=== PATIENT | female | born 1975 | race Caucasian/White ===

== ENCOUNTER 2017-11-18 18:12 | Emergency (ER) | payer MEDICAID ==
[~2017-11-18] VITALS: Ht 170.2 cm; Wt 77.3 kg
[~2017-11-18 18:12] MED LIST: BUSP10TA11 PO; DOCU100C40 PO; GABA600T2 PO; MAGN400O6 PO; NORCO10T PO; QUET-1 PO
[2017-11-18 19:02] LABS: CLARITY,URINE SLIGHTLY CLOUDY (Clear); COLOR,URINE YELLOW (Yellow); GLUCOSE, URINE NEGATIVE (Neg); KETONES,URINE NEGATIVE (Neg); LEUKOCYTE ESTERASE ,URINE SMALL (Neg); NITRITES, URINE NEGATIVE (Neg); OCCULT BLOOD,URINE MODERATE (Neg); PROTEIN,URINE 30 mg/dl (Neg); UROBILINOGEN,URINE 0.2 E.U/dL (0.2-1.0)
[2017-11-18 19:04] LABS: UA COLLECTION TYPE CLN CATCH MIDSTREAM
[2017-11-18 19:14] LABS: URINE AMPHETAMINE SCREEN NEGATIVE (Neg); URINE BARBITUATE SCREEN NEGATIVE (Neg); URINE BENZODIAZEPINES SCREEN NEGATIVE (Neg); URINE CANNABINOID SCREEN POSITIVE (Neg); URINE COCAINE SCREEN NEGATIVE (Neg); URINE METHADONE SCREEN NEGATIVE (Neg); URINE OPIATE SCREEN NEGATIVE (Neg); URINE PHENCYCLIDINE SCREEN NEGATIVE (Neg)
[2017-11-18] MEDS ORDERED: PHEN-716 PO (19:19)
[2017-11-18] MEDS ORDERED: CIPR-259 PO (19:19)
[2017-11-18 19:22] LABS: BACTERIA,URINE 3+ /HPF (Neg); MUCUS STRANDS NONE SEEN /LPF (Neg); SQUAMOUS EPITHELIAL CELL,UR MODERATE /LPF (FEW); WBC CLUMPS,URINE MODERATE /HPF (NEGATIVE); WBC,URINE 20-30 /HPF (0-4)
[2017-11-18 19:38] VITALS: BP 128/81
== END 2017-11-18 19:43 | disposition home or self-care (01) ==
LOC: ER 18:12
DX: R51 Headache (principal); F91.9 Conduct disorder, unspecified; G89.29 Other chronic pain; F41.9 Anxiety disorder, unspecified; F32.9 Major depressive disorder, single episode, unspecified; F12.90 Cannabis use, unspecified, uncomplicated; F15.90 Other stimulant use, unspecified, uncomplicated; F14.90 Cocaine use, unspecified, uncomplicated; Z90.49 Acquired absence of other specified parts of digestive tract; Z91.14 Patient's other noncompliance with medication regimen; Z98.890 Other specified postprocedural states; Z88.0 Allergy status to penicillin; Z88.6 Allergy status to analgesic agent; Z88.5 Allergy status to narcotic agent
CPT/HCPCS: 80305; 81001; 87077; 87088; 87186; 99284

== ENCOUNTER 2018-09-09 11:30 | Day surgery (SDC) | payer MEDICAID ==
[~2018-09-09 11:30] MED LIST changes: +GABA600T13 PO; -GABA600T2 PO; +PHEN-716 PO
[2018-09-09] MEDS ORDERED: LIDOcaine/PRILOcaine 5gm cream TP ONE (12:09)
--- NOTE | 2018-09-09 13:00 | NUR ---
Patient ambulated independently from [facility] and was admitted to outpatient wound care for physician visit with Marshall Bansal MD. Dressing removed, wound cleansed and Emla cream applied per order. New patient assessment completed with review of patient's medical history and current medications. 1230 - Dr. Bansal at bedside accompanied by RN. Wound assessed, time out performed by MD/RN. Wound debrided as detailed in the physician progress/procedure note. Plan of care discussed with patient. Dressings placed per MD orders. Patient instructed on the signs and symptoms of infection and to call the Wound Center if any occur or to go to the ED if we are closed: Increased pain in wound Increase in drainage from the wound Redness in the skin surrounding the wound Bleeding from the wound Temperature of 101 or greater Patient instructed that the weight of their body puts a large amount of pressure on their wounds. This pressure keeps the new tissue from growing and inhibits new blood vessels from forming. Explained that, if they continue to bear weight on a body part that has a wound, the time it takes to heal the wound increases, the wound may get worse or the wound may not heal at all. Patient verbalized understanding of all discharge instructions and plan of care and ambulated independently out to [facility] in stable condition with no sign or symptom of distress at time of discharge.
[2018-09-09] MEDS ORDERED: TIZA4TAB11 PO (14:28)
[2018-09-09] MEDS ORDERED: trintellix (14:28)
== END 2018-09-09 12:45 | disposition home or self-care (01) ==
LOC: WOUND CARE 11:30
PROVIDERS: ATTEND Surgery
DX: T81.89XD Other complications of procedures, not elsewhere classified, subsequent encounter (principal); L97.522 Non-pressure chronic ulcer of other part of left foot with fat layer exposed; G89.29 Other chronic pain; F41.9 Anxiety disorder, unspecified; F12.90 Cannabis use, unspecified, uncomplicated; F14.90 Cocaine use, unspecified, uncomplicated; F32.9 Major depressive disorder, single episode, unspecified; F15.90 Other stimulant use, unspecified, uncomplicated; Z98.890 Other specified postprocedural states; Z90.49 Acquired absence of other specified parts of digestive tract; Y83.8 Other surgical procedures as the cause of abnormal reaction of the patient, or of later complication, without mention of misadventure at the time of the procedure
CPT/HCPCS: 73600; 73620; 87070; 87075; 87077; 87102; 87176; 87186; A6021; A6206; A6212

== ENCOUNTER 2018-09-16 10:02 | Day surgery (SDC) | payer MEDICAID ==
[~2018-09-16 10:02] MED LIST changes: -BUSP10TA11 PO; -DOCU100C40 PO; -MAGN400O6 PO; -NORCO10T PO; -PHEN-716 PO; +TIZA4TAB11 PO; +trintellix
[2018-09-16 11:16] LABS: BASOPHILS # (AUTO) 0.1 X10'3 (0-0.2); EOSINOPHILS # (AUTO) 0.2 X10'3 (0-0.9); EOSINOPHILS % (AUTO) 2.9 % (0-6); HEMATOCRIT 40.7 % (35.0-45.0); HEMOGLOBIN 14.2 g/dl (12.0-16.0); LYMPHOCYTES # (AUTO) 1.7 X10'3 (1.1-4.8); LYMPHOCYTES % (AUTO) 28.4 % (21-51); MEAN CORPUSCULAR HEMOGLOBIN 30.8 PG (27.0-31.0); MEAN CORPUSCULAR HGB CONC 34.8 g/dL (33.0-36.5); MEAN CORPUSCULAR VOLUME 88.4 FL (78-98); MEAN PLATELET VOLUME 8.2 FL (7.4-10.4); MONOCYTES # (AUTO) 0.6 X10'3 (0-0.9); MONOCYTES % (AUTO) 9.3 % (2-12); NEUTROPHILS # (AUTO) 3.6 X10'3 (1.8-7.7); NEUTROPHILS % (AUTO) 58.4 % (42-75); PLATELET COUNT 321 X10'3 (140-440); RED BLOOD COUNT 4.61 X10'6 (4.20-5.60); RED CELL DISTRIBUTION WIDTH 13.6 % (11.5-14.5); WHITE BLOOD COUNT 6.1 X10'3 (4.5-11.0)
[2018-09-16 11:27] LABS: ALANINE AMINOTRANSFERASE 19 U/L (12-78); ALBUMIN 3.5 G/DL (3.4-5.0); ALBUMIN/GLOBULIN RATIO 0.7 (1.1-1.5); ALKALINE PHOSPHATASE 95 IU/L (46-116); ANION GAP 9 (8-16); ASPARTATE AMINO TRANSFERASE 14 U/L (10-37); BILIRUBIN,TOTAL 0.2 MG/DL (0.1-1.0); BLOOD UREA NITROGEN 10 MG/DL (7-18); BUN/CREATININE RATIO 14.7 (6.6-38.0); CALCIUM 8.6 MG/DL (8.5-10.1); CHLORIDE 102 MMOL/L (99-107); CREATININE 0.68 MG/DL (0.40-0.90); GLUCOSE 79 MG/DL (70-104); HEMOGLOBIN A1C 5.4 % (4.5-6.2); POTASSIUM 3.8 MMOL/L (3.5-5.1); PREALBUMIN 17.3 MG/DL (19-36); SODIUM 138 MMOL/L (135-145); TOTAL CARBON DIOXIDE 26.6 MMOL/L (24-32); TOTAL PROTEIN 8.2 G/DL (6.4-8.2); eGFR > 90 ML/MIN
[2018-09-16] MEDS ORDERED: LIDOcaine/PRILOcaine 5gm cream TP ONE (11:40)
--- NOTE | 2018-09-16 13:30 | NUR ---
Patient ambulated independently from [facility] and was admitted to outpatient wound care for physician visit with Marshall Bansal MD. Dressing removed, wound cleansed. Patient assessed for changes in conditions, medications and medical history. Ordered tests completed. 1310 - Dr. Bansal at bedside accompanied by RN. Wound assessed, time out performed by MD/RN. Wound debrided as detailed in the physician progress/procedure note. Plan of care discussed with patient. Dressings placed per MD orders. Patient instructed on the signs and symptoms of infection and to call the Wound Center if any occur or to go to the ED if we are closed: Increased pain in wound Increase in drainage from the wound Redness in the skin surrounding the wound Bleeding from the wound Temperature of 101 or greater Patient instructed that the weight of their body puts a large amount of pressure on their wounds. This pressure keeps the new tissue from growing and inhibits new blood vessels from forming. Explained that, if they continue to bear weight on a body part that has a wound, the time it takes to heal the wound increases, the wound may get worse or the wound may not heal at all. Pt instructed to elevate legs at least 30 minutes 3 times a day or 10 minutes every 4 hours, also instructed check their toes. If they become purplish or blue, cool to the touch, numb or tingly, use a pair of scissors and carefully cut off the dressing. Call the Wound Center for an appointment to have the dressing reapplied. Pt instructed that decreased swelling in the legs and the potential for drainage from the wound may require them to have to schedule visits twice weekly, progressing to weekly as the swelling decreases in their legs. Pt instructed that if dressings become loose, wrinkled or falls down and if they are experiencing any pain or discomfort under their dressing cut the dressing off and call the Wound Center to have it reapplied. Pt instructed that the wrap needs to be kept dry. They may bath at a sink or there are devices designed to keep dressings dry these are available at most drug stores. If they choose to shower with a plastic bag taped over the wrap. Be sure to having another person available for assistance or placing towels on the floor of the shower or tub to eliminate the slick surface can reduce the risk of falls. Patient verbalized understanding of all discharge instructions and plan of care and ambulated independently out to [facility] in stable condition with no sign or symptom of distress at time of discharge.
[2018-09-16] MEDS ORDERED: BUPR1FIL3 SL (15:36)
[2018-09-16] MEDS ORDERED: PROP10TA10 PO (15:36)
== END 2018-09-16 11:30 | disposition home or self-care (01) ==
LOC: WOUND CARE 10:02
PROVIDERS: ATTEND Surgery
DX: T81.89XD Other complications of procedures, not elsewhere classified, subsequent encounter (principal); L97.522 Non-pressure chronic ulcer of other part of left foot with fat layer exposed; G89.29 Other chronic pain; F41.9 Anxiety disorder, unspecified; F12.90 Cannabis use, unspecified, uncomplicated; F14.90 Cocaine use, unspecified, uncomplicated; F32.9 Major depressive disorder, single episode, unspecified; F15.90 Other stimulant use, unspecified, uncomplicated; Z98.890 Other specified postprocedural states; Z90.49 Acquired absence of other specified parts of digestive tract; Z86.19 Personal history of other infectious and parasitic diseases; Z79.899 Other long term (current) drug therapy; Y83.8 Other surgical procedures as the cause of abnormal reaction of the patient, or of later complication, without mention of misadventure at the time of the procedure
CPT/HCPCS: 36415; 80053; 83036; 84134; 85025; 85651; 93970; A6021; A6206; A6441

== ENCOUNTER 2018-09-26 11:31 | Day surgery (SDC) | payer MEDICAID ==
[~2018-09-26 11:31] MED LIST changes: +BUPR1FIL3 SL; +PROP10TA10 PO
--- NOTE | 2018-09-26 13:00 | NUR ---
Patient ambulated independently from [facility] and was admitted to outpatient wound care for physician visit with Marshall Bansal MD. Dressing removed, wound cleansed and lidocaine applied per order. Patient assessed for changes in conditions, medications and medical history. 1213 - Dr. Bansal at bedside accompanied by RN. Wound assessed, time out performed by MD/RN. Wound debrided as detailed in the physician progress/procedure note. Plan of care discussed with patient. Dressings placed per MD orders. Patient instructed on the signs and symptoms of infection and to call the Wound Center if any occur or to go to the ED if we are closed: Increased pain in wound Increase in drainage from the wound Redness in the skin surrounding the wound Bleeding from the wound Temperature of 101 or greater Patient instructed that the weight of their body puts a large amount of pressure on their wounds. This pressure keeps the new tissue from growing and inhibits new blood vessels from forming. Explained that, if they continue to bear weight on a body part that has a wound, the time it takes to heal the wound increases, the wound may get worse or the wound may not heal at all. Patient verbalized understanding of all discharge instructions and plan of care and ambulated independently out to [facility] in stable condition with no sign or symptom of distress at time of discharge.
[2018-09-26] MEDS ORDERED: LEVO750T21 PO (14:53)
== END 2018-09-26 12:33 | disposition home or self-care (01) ==
LOC: WOUND CARE 11:31
PROVIDERS: ATTEND Surgery
DX: T81.89XD Other complications of procedures, not elsewhere classified, subsequent encounter (principal); L97.522 Non-pressure chronic ulcer of other part of left foot with fat layer exposed; L98.492 Non-pressure chronic ulcer of skin of other sites with fat layer exposed; G89.29 Other chronic pain; F41.9 Anxiety disorder, unspecified; F12.90 Cannabis use, unspecified, uncomplicated; F14.90 Cocaine use, unspecified, uncomplicated; F32.9 Major depressive disorder, single episode, unspecified; F15.90 Other stimulant use, unspecified, uncomplicated; Z98.890 Other specified postprocedural states; Z90.49 Acquired absence of other specified parts of digestive tract; Z86.19 Personal history of other infectious and parasitic diseases; Z79.899 Other long term (current) drug therapy; Y83.8 Other surgical procedures as the cause of abnormal reaction of the patient, or of later complication, without mention of misadventure at the time of the procedure
CPT/HCPCS: 97597; A6021; A6206; A6446

== ENCOUNTER 2018-09-30 11:35 | Day surgery (SDC) | payer MEDICAID ==
[~2018-09-30 11:35] MED LIST changes: +LEVO750T21 PO
[2018-09-30] MEDS ORDERED: LIDOcaine/PRILOcaine 5gm cream TP ONE (12:06)
--- NOTE | 2018-09-30 13:30 | NUR ---
Patient ambulated independently from [facility] and was admitted to outpatient wound care for physician visit with Marshall Bansal MD. Dressing removed, wound cleansed. Patient assessed for changes in conditions, medications and medical history. 1250 -Dr. Bansal at bedside accompanied by RN. Wound assessed, time out performed by MD/RN. Wound debrided as detailed in the physician progress/procedure note. Plan of care discussed with patient. Dressings placed per MD orders. Patient instructed on the signs and symptoms of infection and to call the Wound Center if any occur or to go to the ED if we are closed: Increased pain in wound Increase in drainage from the wound Redness in the skin surrounding the wound Bleeding from the wound Temperature of 101 or greater Patient instructed that the weight of their body puts a large amount of pressure on their wounds. This pressure keeps the new tissue from growing and inhibits new blood vessels from forming. Explained that, if they continue to bear weight on a body part that has a wound, the time it takes to heal the wound increases, the wound may get worse or the wound may not heal at all. Patient verbalized understanding of all discharge instructions and plan of care and ambulated independently out to [facility] in stable condition with no sign or symptom of distress at time of discharge. Refill on antibiotic called in to patient's pharmacy; pharmacy technician trainee reports that the antibiotic ordered last week was "never picked up".
== END 2018-09-30 13:44 | disposition home or self-care (01) ==
LOC: WOUND CARE 11:35
PROVIDERS: ATTEND Surgery
DX: T81.89XD Other complications of procedures, not elsewhere classified, subsequent encounter (principal); L97.522 Non-pressure chronic ulcer of other part of left foot with fat layer exposed; L98.492 Non-pressure chronic ulcer of skin of other sites with fat layer exposed; G89.29 Other chronic pain; F41.9 Anxiety disorder, unspecified; F12.90 Cannabis use, unspecified, uncomplicated; F14.90 Cocaine use, unspecified, uncomplicated; F32.9 Major depressive disorder, single episode, unspecified; F15.90 Other stimulant use, unspecified, uncomplicated; Z98.890 Other specified postprocedural states; Z90.49 Acquired absence of other specified parts of digestive tract; Z86.19 Personal history of other infectious and parasitic diseases; Z79.899 Other long term (current) drug therapy; Y83.8 Other surgical procedures as the cause of abnormal reaction of the patient, or of later complication, without mention of misadventure at the time of the procedure
CPT/HCPCS: 11042; 97607; A6222

== ENCOUNTER 2018-10-14 11:25 | Day surgery (SDC) | payer MEDICAID | END 2018-10-14 12:48 | disposition home or self-care (01) | LOC: WOUND CARE 11:25 | PROVIDERS: ATTEND Surgery | DX: T81.89XD Other complications of procedures, not elsewhere classified, subsequent encounter (principal); L97.525 Non-pressure chronic ulcer of other part of left foot with muscle involvement without evidence of necrosis; L98.492 Non-pressure chronic ulcer of skin of other sites with fat layer exposed; G89.29 Other chronic pain; F41.9 Anxiety disorder, unspecified; F12.90 Cannabis use, unspecified, uncomplicated; F14.90 Cocaine use, unspecified, uncomplicated; F32.9 Major depressive disorder, single episode, unspecified; F15.90 Other stimulant use, unspecified, uncomplicated; Z98.890 Other specified postprocedural states; Z90.49 Acquired absence of other specified parts of digestive tract; Z86.19 Personal history of other infectious and parasitic diseases; Z79.899 Other long term (current) drug therapy; Y83.8 Other surgical procedures as the cause of abnormal reaction of the patient, or of later complication, without mention of misadventure at the time of the procedure | CPT/HCPCS: 11043; A6021; A6196; A6206; A6446 ==

== ENCOUNTER 2018-11-11 11:47 | Day surgery (SDC) | payer MEDICAID ==
[2018-11-11] MEDS ORDERED: LIDOcaine/PRILOcaine 5gm cream TP ONE (12:05)
--- NOTE | 2018-11-11 15:05 | NUR ---
Patient ambulated independently from [facility] and was admitted to outpatient wound care for physician visit with Marshall Bansal MD. Dressing removed, wound cleansed and Emla cream applied per order. Patient assessed for changes in conditions, medications and medical history. Dr. Bansal at bedside accompanied by RN. Wound assessed, time out performed by MD/RN. Wound debrided as detailed in the physician progress/procedure note. Plan of care discussed with patient. Dressings placed per MD orders. Patient instructed on the signs and symptoms of infection and to call the Wound Center if any occur or to go to the ED if we are closed: Increased pain in wound Increase in drainage from the wound Redness in the skin surrounding the wound Bleeding from the wound Temperature of 101 or greater Patient instructed that the weight of their body puts a large amount of pressure on their wounds. This pressure keeps the new tissue from growing and inhibits new blood vessels from forming. Explained that, if they continue to bear weight on a body part that has a wound, the time it takes to heal the wound increases, the wound may get worse or the wound may not heal at all. Patient verbalized understanding of all discharge instructions and plan of care and ambulated independently out to [facility] in stable condition with no sign or symptom of distress at time of discharge. Addendum: 11/11/18 at 1506 by Es Wiseman RN Amended: Links added.
== END 2018-11-11 12:49 | disposition home or self-care (01) ==
LOC: WOUND CARE 11:47
PROVIDERS: ATTEND Surgery
DX: T81.89XD Other complications of procedures, not elsewhere classified, subsequent encounter (principal); L97.522 Non-pressure chronic ulcer of other part of left foot with fat layer exposed; L98.492 Non-pressure chronic ulcer of skin of other sites with fat layer exposed; G89.29 Other chronic pain; F41.9 Anxiety disorder, unspecified; F12.90 Cannabis use, unspecified, uncomplicated; F14.90 Cocaine use, unspecified, uncomplicated; F32.9 Major depressive disorder, single episode, unspecified; F15.90 Other stimulant use, unspecified, uncomplicated; Z98.890 Other specified postprocedural states; Z90.49 Acquired absence of other specified parts of digestive tract; Z86.19 Personal history of other infectious and parasitic diseases; Z79.899 Other long term (current) drug therapy; Y83.8 Other surgical procedures as the cause of abnormal reaction of the patient, or of later complication, without mention of misadventure at the time of the procedure
CPT/HCPCS: 11042; 97597; A6209; A4663; A6021; A6154

== ENCOUNTER 2018-11-18 11:50 | Day surgery (SDC) | payer MEDICAID ==
--- NOTE | 2018-11-18 12:52 | NUR ---
Patient ambulated independently from [facility] and was admitted to outpatient wound care for physician visit with Marshall Bansal MD. Dressing removed, wound cleansed and lidocaine applied per order. Patient assessed for changes in conditions, medications and medical history. Dr. Bansal at bedside accompanied by RN. Wound assessed, time out performed by MD/RN. Wound debrided as detailed in the physician progress/procedure note. Plan of care discussed with patient. applied an Apligraf to wound. Dressings placed per MD orders. Patient instructed on the signs and symptoms of infection and to call the Wound Center if any occur or to go to the ED if we are closed: Increased pain in wound Increase in drainage from the wound Redness in the skin surrounding the wound Bleeding from the wound Temperature of 101 or greater Patient instructed that the weight of their body puts a large amount of pressure on their wounds. This pressure keeps the new tissue from growing and inhibits new blood vessels from forming. Explained that, if they continue to bear weight on a body part that has a wound, the time it takes to heal the wound increases, the wound may get worse or the wound may not heal at all. Patient verbalized understanding of all discharge instructions and plan of care and ambulated independently out to [facility] in stable condition with no sign or symptom of distress at time of discharge. Addendum: 11/18/18 at 1255 by Es Wiseman RN Amended: Links added.
== END 2018-11-18 12:45 | disposition home or self-care (01) ==
LOC: WOUND CARE 11:50
PROVIDERS: ATTEND Surgery
DX: T81.89XD Other complications of procedures, not elsewhere classified, subsequent encounter (principal); L97.522 Non-pressure chronic ulcer of other part of left foot with fat layer exposed; L98.492 Non-pressure chronic ulcer of skin of other sites with fat layer exposed; G89.29 Other chronic pain; F41.9 Anxiety disorder, unspecified; F12.90 Cannabis use, unspecified, uncomplicated; F14.90 Cocaine use, unspecified, uncomplicated; F32.9 Major depressive disorder, single episode, unspecified; F15.90 Other stimulant use, unspecified, uncomplicated; Z98.890 Other specified postprocedural states; Z90.49 Acquired absence of other specified parts of digestive tract; Z86.19 Personal history of other infectious and parasitic diseases; Z79.899 Other long term (current) drug therapy; Y83.8 Other surgical procedures as the cause of abnormal reaction of the patient, or of later complication, without mention of misadventure at the time of the procedure
CPT/HCPCS: 15275; A6209; A6222; Q4101; A4663; A6250; A6446

== ENCOUNTER 2018-11-26 11:40 | Day surgery (SDC) | payer MEDICAID ==
[2018-11-26] MEDS ORDERED: LIDOcaine 2% 5ml jelly ONE (11:53)
[2018-11-26] MEDS ORDERED: nystatin/triamcinolone cream 15gm TP ONE (12:20)
[2018-11-26] MEDS ORDERED: MYCOL15CR TOP (12:49)
--- NOTE | 2018-11-26 12:50 | NUR ---
Patient ambulated independently from [facility] and was admitted to outpatient wound care for physician visit with Marshall Bansal MD. Dressing removed, wound cleansed and lidocaine applied per order. Patient assessed for changes in conditions, medications and medical history. 1205 - Dr. Bansal at bedside accompanied by RN. Wound assessed, time out performed by MD/RN. Wound debrided as detailed in the physician progress/procedure note. Plan of care discussed with patient. Dressings placed per MD orders. Patient instructed on the signs and symptoms of infection and to call the Wound Center if any occur or to go to the ED if we are closed: Increased pain in wound Increase in drainage from the wound Redness in the skin surrounding the wound Bleeding from the wound Temperature of 101 or greater Patient instructed that the weight of their body puts a large amount of pressure on their wounds. This pressure keeps the new tissue from growing and inhibits new blood vessels from forming. Explained that, if they continue to bear weight on a body part that has a wound, the time it takes to heal the wound increases, the wound may get worse or the wound may not heal at all. Patient verbalized understanding of all discharge instructions and plan of care and ambulated independently out to [facility] in stable condition with no sign or symptom of distress at time of discharge.
== END 2018-11-26 12:35 | disposition home or self-care (01) ==
LOC: WOUND CARE 11:40
PROVIDERS: ATTEND Surgery
DX: T81.89XD Other complications of procedures, not elsewhere classified, subsequent encounter (principal); L97.522 Non-pressure chronic ulcer of other part of left foot with fat layer exposed; L98.492 Non-pressure chronic ulcer of skin of other sites with fat layer exposed; G89.29 Other chronic pain; F41.9 Anxiety disorder, unspecified; F12.90 Cannabis use, unspecified, uncomplicated; F14.90 Cocaine use, unspecified, uncomplicated; F32.9 Major depressive disorder, single episode, unspecified; F15.90 Other stimulant use, unspecified, uncomplicated; Z98.890 Other specified postprocedural states; Z90.49 Acquired absence of other specified parts of digestive tract; Z86.19 Personal history of other infectious and parasitic diseases; Z79.899 Other long term (current) drug therapy; Y83.8 Other surgical procedures as the cause of abnormal reaction of the patient, or of later complication, without mention of misadventure at the time of the procedure
CPT/HCPCS: 97597; A6209; J7999; A4663; A6154; A6446

== ENCOUNTER 2018-12-05 12:04 | Outpatient (CLI) | payer MEDICAID ==
[~2018-12-05 12:04] MED LIST changes: +MYCOL15CR TOP
== END 2018-12-05 13:33 | disposition home or self-care (01) ==
LOC: WOUND CARE 12:04
PROVIDERS: ATTEND Surgery
DX: T81.89XD Other complications of procedures, not elsewhere classified, subsequent encounter (principal); L97.522 Non-pressure chronic ulcer of other part of left foot with fat layer exposed; L98.492 Non-pressure chronic ulcer of skin of other sites with fat layer exposed; G89.29 Other chronic pain; F41.9 Anxiety disorder, unspecified; F12.90 Cannabis use, unspecified, uncomplicated; F14.90 Cocaine use, unspecified, uncomplicated; F32.9 Major depressive disorder, single episode, unspecified; F15.90 Other stimulant use, unspecified, uncomplicated; F17.200 Nicotine dependence, unspecified, uncomplicated; Z98.890 Other specified postprocedural states; Z90.49 Acquired absence of other specified parts of digestive tract; Z86.19 Personal history of other infectious and parasitic diseases; Z79.899 Other long term (current) drug therapy; Y83.8 Other surgical procedures as the cause of abnormal reaction of the patient, or of later complication, without mention of misadventure at the time of the procedure
CPT/HCPCS: A4663; G0463

== ENCOUNTER 2018-12-09 11:40 | Day surgery (SDC) | payer MEDICAID ==
[2018-12-09] MEDS ORDERED: LIDOcaine 2% 5ml jelly ONE (12:10)
== END 2018-12-09 13:53 | disposition home or self-care (01) ==
LOC: WOUND CARE 11:40
PROVIDERS: ATTEND Surgery
DX: T81.89XD Other complications of procedures, not elsewhere classified, subsequent encounter (principal); L97.522 Non-pressure chronic ulcer of other part of left foot with fat layer exposed; L98.492 Non-pressure chronic ulcer of skin of other sites with fat layer exposed; G89.29 Other chronic pain; F41.9 Anxiety disorder, unspecified; F12.90 Cannabis use, unspecified, uncomplicated; F14.90 Cocaine use, unspecified, uncomplicated; F32.9 Major depressive disorder, single episode, unspecified; F15.90 Other stimulant use, unspecified, uncomplicated; F17.200 Nicotine dependence, unspecified, uncomplicated; Z98.890 Other specified postprocedural states; Z90.49 Acquired absence of other specified parts of digestive tract; Z86.19 Personal history of other infectious and parasitic diseases; Z79.899 Other long term (current) drug therapy; Y83.8 Other surgical procedures as the cause of abnormal reaction of the patient, or of later complication, without mention of misadventure at the time of the procedure
CPT/HCPCS: 87070; 87075; 87077; 87102; 87176; 87186; 97597; A4663; A6021; A6154; A6212

== ENCOUNTER 2018-12-19 11:05 | Day surgery (SDC) | payer MEDICAID ==
[2018-12-19] MEDS ORDERED: LIDOcaine 2% 5ml jelly ONE (12:39)
== END 2018-12-19 14:05 | disposition home or self-care (01) ==
LOC: WOUND CARE 11:05
PROVIDERS: ATTEND Surgery
DX: T81.89XD Other complications of procedures, not elsewhere classified, subsequent encounter (principal); L97.522 Non-pressure chronic ulcer of other part of left foot with fat layer exposed; L98.492 Non-pressure chronic ulcer of skin of other sites with fat layer exposed; L89.899 Pressure ulcer of other site, unspecified stage; G89.29 Other chronic pain; F41.9 Anxiety disorder, unspecified; F12.90 Cannabis use, unspecified, uncomplicated; F14.90 Cocaine use, unspecified, uncomplicated; F32.9 Major depressive disorder, single episode, unspecified; F15.90 Other stimulant use, unspecified, uncomplicated; F17.200 Nicotine dependence, unspecified, uncomplicated; Z98.890 Other specified postprocedural states; Z90.49 Acquired absence of other specified parts of digestive tract; Z86.19 Personal history of other infectious and parasitic diseases; Z79.899 Other long term (current) drug therapy; Y83.8 Other surgical procedures as the cause of abnormal reaction of the patient, or of later complication, without mention of misadventure at the time of the procedure
CPT/HCPCS: 97597; A4663; A6021; A6154; A6446

== ENCOUNTER 2018-12-23 12:00 | Day surgery (SDC) | payer MEDICAID ==
[2018-12-23] MEDS ORDERED: LIDOcaine 2% 5ml jelly ONE (12:25)
== END 2018-12-23 13:20 | disposition home or self-care (01) ==
LOC: WOUND CARE 12:00
PROVIDERS: ATTEND Surgery
DX: T81.89XD Other complications of procedures, not elsewhere classified, subsequent encounter (principal); L97.522 Non-pressure chronic ulcer of other part of left foot with fat layer exposed; L98.492 Non-pressure chronic ulcer of skin of other sites with fat layer exposed; L89.892 Pressure ulcer of other site, stage 2; G89.29 Other chronic pain; F41.9 Anxiety disorder, unspecified; F12.90 Cannabis use, unspecified, uncomplicated; F14.90 Cocaine use, unspecified, uncomplicated; F32.9 Major depressive disorder, single episode, unspecified; F15.90 Other stimulant use, unspecified, uncomplicated; F17.200 Nicotine dependence, unspecified, uncomplicated; Z98.890 Other specified postprocedural states; Z90.49 Acquired absence of other specified parts of digestive tract; Z86.19 Personal history of other infectious and parasitic diseases; Z79.899 Other long term (current) drug therapy; Y83.8 Other surgical procedures as the cause of abnormal reaction of the patient, or of later complication, without mention of misadventure at the time of the procedure
CPT/HCPCS: 97597; A6222; A6021; A6446

== ENCOUNTER 2019-01-06 11:45 | Day surgery (SDC) | payer MEDICAID ==
[2019-01-06] MEDS ORDERED: LIDOcaine 2% 5ml jelly ONE (12:07)
[2019-01-06] MEDS ORDERED: hydrocortisone 1% cream 28gm TP ONE (12:46)
== END 2019-01-06 13:05 | disposition home or self-care (01) ==
LOC: WOUND CARE 11:45
PROVIDERS: ATTEND Surgery
DX: T81.89XD Other complications of procedures, not elsewhere classified, subsequent encounter (principal); L97.522 Non-pressure chronic ulcer of other part of left foot with fat layer exposed; L98.492 Non-pressure chronic ulcer of skin of other sites with fat layer exposed; L89.892 Pressure ulcer of other site, stage 2; G89.29 Other chronic pain; F41.9 Anxiety disorder, unspecified; F12.90 Cannabis use, unspecified, uncomplicated; F14.90 Cocaine use, unspecified, uncomplicated; F32.9 Major depressive disorder, single episode, unspecified; F15.90 Other stimulant use, unspecified, uncomplicated; F17.200 Nicotine dependence, unspecified, uncomplicated; Z98.890 Other specified postprocedural states; Z90.49 Acquired absence of other specified parts of digestive tract; Z86.19 Personal history of other infectious and parasitic diseases; Z79.899 Other long term (current) drug therapy; Y83.8 Other surgical procedures as the cause of abnormal reaction of the patient, or of later complication, without mention of misadventure at the time of the procedure
CPT/HCPCS: 97597; A4663; A6021; A6154; A6212; A6446

== ENCOUNTER 2019-01-09 19:29 | Emergency (ER) | payer MEDICAID ==
[~2019-01-09] VITALS: Ht 170.2 cm; Wt 90.0 kg
[2019-01-09 19:34] VITALS: BP 154/86
[2019-01-09] MEDS ORDERED: LORazepam 2 mg/ml vial IV ONE (21:30)
[2019-01-09] MEDS ORDERED: normal saline 1000ML IV soln IVB ONE (21:30)
[2019-01-09] MEDS ORDERED: ondansetron/PF 4mg/2ml inj IV ONE (21:30)
[2019-01-09] MEDS ORDERED: iohexol 300mg/ml 100ml inj. ONE (21:31)
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
[2019-01-09 21:55] LABS: BASOPHILS # (AUTO) 0.1 X10'3 (0-0.2); BASOPHILS % (AUTO) 0.5 % (0-1); EOSINOPHILS # (AUTO) 0.3 X10'3 (0-0.9); EOSINOPHILS % (AUTO) 2.9 % (0-6); HEMATOCRIT 33.8 % (35.0-45.0); HEMOGLOBIN 11.7 g/dl (12.0-16.0); LYMPHOCYTES # (AUTO) 3.4 X10'3 (1.1-4.8); LYMPHOCYTES % (AUTO) 29.8 % (21-51); MEAN CORPUSCULAR HEMOGLOBIN 29.8 PG (27.0-31.0); MEAN CORPUSCULAR HGB CONC 34.5 g/dL (33.0-36.5); MEAN CORPUSCULAR VOLUME 86.4 FL (78-98); MEAN PLATELET VOLUME 8.5 FL (7.4-10.4); MONOCYTES # (AUTO) 0.9 X10'3 (0-0.9); MONOCYTES % (AUTO) 7.9 % (2-12); NEUTROPHILS # (AUTO) 6.7 X10'3 (1.8-7.7); NEUTROPHILS % (AUTO) 58.9 % (42-75); PLATELET COUNT 278 X10'3 (140-440); RED BLOOD COUNT 3.91 X10'6 (4.20-5.60); RED CELL DISTRIBUTION WIDTH 13.9 % (11.5-14.5); WHITE BLOOD COUNT 11.3 X10'3 (4.5-11.0)
[2019-01-09 22:04] LABS: ALANINE AMINOTRANSFERASE 14 U/L (12-78); ALBUMIN 3.3 G/DL (3.4-5.0); ALBUMIN/GLOBULIN RATIO 0.7 (1.1-1.5); ALKALINE PHOSPHATASE 94 IU/L (46-116); ANION GAP 13 (8-16); ASPARTATE AMINO TRANSFERASE 6 U/L (10-37); BILIRUBIN,TOTAL 0.1 MG/DL (0.1-1.0); BLOOD UREA NITROGEN 7 MG/DL (7-18); BUN/CREATININE RATIO 10.4 (6.6-38.0); CHLORIDE 106 MMOL/L (99-107); CREATININE 0.67 MG/DL (0.40-0.90); ETHANOL < 0.010 GM/DL (0.0-0.010); GLUCOSE 99 MG/DL (70-104); POTASSIUM 3.5 MMOL/L (3.5-5.1); SODIUM 140 MMOL/L (135-145); TOTAL CARBON DIOXIDE 20.8 MMOL/L (24-32); TOTAL PROTEIN 8.2 G/DL (6.4-8.2); eGFR > 90 ML/MIN
[2019-01-09] MEDS: morphine 4 MG/ML inj SYRINge IV PRN ×2 (22:20→22:47)
[2019-01-09 22:35] LABS: CREATINE KINASE 94 U/L (26-192)
--- NOTE | 2019-01-09 22:49 | NUR ---
pt having a lot of pain in that calf area. She said it feels like something is hitting her with a bowling ball. She is up to the BR, provided her a ua cup. She walks all hunched over, limps. There is odor coming from that wound. I will unwrap it and evaluate it. I will give her the morphine when she returns. She said only dilaudid works. Infomed the patient that we do not have dilaudid in the ER.
--- NOTE | 2019-01-09 23:27 | NUR ---
PT HAS 4 WOUNDS TO HER LEFT FOOT 3 ON TOP OF HER FOOT AND 1 TO ACHILLES TENDON. ALL ARE DRAINING AN ODOROUS GAMBLE DRAINAGE. INSTRUCTED THE PATIENT TO WASH HER WOUNDS DAILY. TO USE COCONUT OIL TO HER ENTIRE BODY TO KEEP SKIN SUPPLE SECONDARY TO HER MCNEILL. ENCOURAGED MULTIVITAMIN VIT C AND VIT E FOR HER SKIN. SHE HAS NOT BEEN TAKING CARE OF HER WOUNDS. THE BOTTOM OF HER FOOT HAD BLACK DIRT ON IT. SHE HAD DRY SKIN TO THE REST OF HER FOOT THAT WAS SCRUBBED OFF WITH THE NS AND 4X4.
--- NOTE | 2019-01-09 23:33 | NUR ---
PHOTOS TAKEN/ON CHART/FRESH BANDAGE TO FOOT. I USED NON ADHERENT BANDAGE X 2 AND WRAPPED WITH KERLIX
[2019-01-09 23:36] LABS: URINE HCG NEGATIVE (NEG)
[2019-01-09 23:37] LABS: COLOR,URINE YELLOW (Yellow); GLUCOSE, URINE NEGATIVE (Neg); KETONES,URINE NEGATIVE (Neg); LEUKOCYTE ESTERASE ,URINE TRACE (Neg); NITRITES, URINE NEGATIVE (Neg); OCCULT BLOOD,URINE NEGATIVE (Neg); PH,URINE 6.5 (4.8-8.0); PROTEIN,URINE NEGATIVE (Neg); UROBILINOGEN,URINE 0.2 E.U/dL (0.2-1.0)
[2019-01-09 23:39] LABS: CLARITY,URINE SLIGHTLY CLOUDY (Clear); UA COLLECTION TYPE CLN CATCH MIDSTREAM
[2019-01-09 23:44] LABS: AMORPHOUS URATES 1+; BACTERIA,URINE 1+ /HPF (Neg); RBC,URINE NONE SEEN /HPF (0-2); SQUAMOUS EPITHELIAL CELL,UR MODERATE /LPF (FEW); WBC,URINE 0-4 /HPF (0-4)
[2019-01-09 23:48] LABS: URINE AMPHETAMINE SCREEN NEGATIVE (Neg); URINE BARBITUATE SCREEN NEGATIVE (Neg); URINE BENZODIAZEPINES SCREEN NEGATIVE (Neg); URINE CANNABINOID SCREEN NEGATIVE (Neg); URINE COCAINE SCREEN NEGATIVE (Neg); URINE METHADONE SCREEN NEGATIVE (Neg); URINE OPIATE SCREEN POSITIVE (Neg); URINE PHENCYCLIDINE SCREEN NEGATIVE (Neg)
[2019-01-09] MEDS ORDERED: sulfamethoxazole/trimethoprim DS (800/160mg) tablet PO ONE (23:55)
[2019-01-09] MEDS ORDERED: SULF1TAB49 PO (23:56)
== END 2019-01-10 00:19 | disposition home or self-care (01) ==
LOC: ER 19:30
DX: L03.116 Cellulitis of left lower limb (principal); G89.29 Other chronic pain; F41.9 Anxiety disorder, unspecified; F32.9 Major depressive disorder, single episode, unspecified; F12.90 Cannabis use, unspecified, uncomplicated; F15.90 Other stimulant use, unspecified, uncomplicated; F14.90 Cocaine use, unspecified, uncomplicated; F10.99 Alcohol use, unspecified with unspecified alcohol-induced disorder; Z88.0 Allergy status to penicillin; Z88.1 Allergy status to other antibiotic agents; Z88.8 Allergy status to other drugs, medicaments and biological substances; Z79.899 Other long term (current) drug therapy; Z98.890 Other specified postprocedural states; Z86.718 Personal history of other venous thrombosis and embolism; Z86.14 Personal history of Methicillin resistant Staphylococcus aureus infection; Z86.19 Personal history of other infectious and parasitic diseases; Z86.69 Personal history of other diseases of the nervous system and sense organs; Z90.49 Acquired absence of other specified parts of digestive tract; Y90.9 Presence of alcohol in blood, level not specified
CPT/HCPCS: 36415; 73701; 80053; 80305; 80320; 81001; 81025; 82550; 84145; 85025; 87088; 93971; 96374; 96375; 99284; J2060; J2270; J2405; J7030; Q9967

== ENCOUNTER 2019-01-13 11:50 | Outpatient (CLI) | payer MEDICAID ==
[~2019-01-13 11:50] MED LIST changes: +SULF1TAB49 PO
[2019-01-13] MEDS ORDERED: hydrocortisone 1% cream 28gm TP ONE (12:31)
== END 2019-01-13 12:53 | disposition home or self-care (01) ==
LOC: WOUND CARE 11:50
PROVIDERS: ATTEND Surgery
DX: T81.89XD Other complications of procedures, not elsewhere classified, subsequent encounter (principal); L97.522 Non-pressure chronic ulcer of other part of left foot with fat layer exposed; L89.892 Pressure ulcer of other site, stage 2; G89.29 Other chronic pain; F41.9 Anxiety disorder, unspecified; F12.90 Cannabis use, unspecified, uncomplicated; F14.90 Cocaine use, unspecified, uncomplicated; F32.9 Major depressive disorder, single episode, unspecified; F15.90 Other stimulant use, unspecified, uncomplicated; F17.200 Nicotine dependence, unspecified, uncomplicated; Z98.890 Other specified postprocedural states; Z90.49 Acquired absence of other specified parts of digestive tract; Z86.19 Personal history of other infectious and parasitic diseases; Z79.899 Other long term (current) drug therapy; Z86.718 Personal history of other venous thrombosis and embolism; Y83.8 Other surgical procedures as the cause of abnormal reaction of the patient, or of later complication, without mention of misadventure at the time of the procedure
CPT/HCPCS: A4663; A6021; A6154; G0463

== ENCOUNTER 2019-01-21 10:45 | Day surgery (SDC) | payer MEDICAID ==
[~2019-01-21 10:45] MED LIST changes: -SULF1TAB49 PO
[2019-01-21] MEDS ORDERED: LIDOcaine 2% 5ml jelly ONE (11:06)
[2019-01-21] MEDS ORDERED: nystatin/triamcinolone cream 15gm TP ONE (12:26)
== END 2019-01-21 12:48 | disposition home or self-care (01) ==
LOC: WOUND CARE 10:45
PROVIDERS: ATTEND Surgery
DX: T81.89XD Other complications of procedures, not elsewhere classified, subsequent encounter (principal); L97.522 Non-pressure chronic ulcer of other part of left foot with fat layer exposed; L89.892 Pressure ulcer of other site, stage 2; G89.29 Other chronic pain; F41.9 Anxiety disorder, unspecified; F12.90 Cannabis use, unspecified, uncomplicated; F14.90 Cocaine use, unspecified, uncomplicated; F32.9 Major depressive disorder, single episode, unspecified; F15.90 Other stimulant use, unspecified, uncomplicated; F17.200 Nicotine dependence, unspecified, uncomplicated; Z98.890 Other specified postprocedural states; Z90.49 Acquired absence of other specified parts of digestive tract; Z86.19 Personal history of other infectious and parasitic diseases; Z79.899 Other long term (current) drug therapy; Z86.718 Personal history of other venous thrombosis and embolism; Y83.8 Other surgical procedures as the cause of abnormal reaction of the patient, or of later complication, without mention of misadventure at the time of the procedure
CPT/HCPCS: 97597; J7999; A4663; A6021; A6154; A6212

== ENCOUNTER 2019-01-27 12:00 | Outpatient (CLI) | payer MEDICAID | END 2019-01-27 13:00 | disposition home or self-care (01) | LOC: WOUND CARE 12:00 | PROVIDERS: ATTEND Surgery | DX: T81.89XD Other complications of procedures, not elsewhere classified, subsequent encounter (principal); E11.621 Type 2 diabetes mellitus with foot ulcer; L89.893 Pressure ulcer of other site, stage 3; L97.524 Non-pressure chronic ulcer of other part of left foot with necrosis of bone; I12.9 Hypertensive chronic kidney disease with stage 1 through stage 4 chronic kidney disease, or unspecified chronic kidney disease; E11.22 Type 2 diabetes mellitus with diabetic chronic kidney disease; N18.3 Chronic kidney disease, stage 3 (moderate); E11.40 Type 2 diabetes mellitus with diabetic neuropathy, unspecified; G60.9 Hereditary and idiopathic neuropathy, unspecified; I25.10 Atherosclerotic heart disease of native coronary artery without angina pectoris; L84 Corns and callosities; M10.9 Gout, unspecified; I25.2 Old myocardial infarction; E78.5 Hyperlipidemia, unspecified; Z79.01 Long term (current) use of anticoagulants; Z79.02 Long term (current) use of antithrombotics/antiplatelets; Z79.82 Long term (current) use of aspirin; Z79.899 Other long term (current) drug therapy; Z95.5 Presence of coronary angioplasty implant and graft; Y83.8 Other surgical procedures as the cause of abnormal reaction of the patient, or of later complication, without mention of misadventure at the time of the procedure | CPT/HCPCS: A4663; A6021; A6154; A6212; G0463 ==

== ENCOUNTER 2019-02-06 11:40 | Day surgery (SDC) | payer MEDICAID ==
[2019-02-06] MEDS ORDERED: LIDOcaine 2% 5ml jelly ONE (12:04)
[2019-02-06] MEDS ORDERED: nystatin/triamcinolone cream 15gm TP ONE (12:23)
== END 2019-02-06 12:55 | disposition home or self-care (01) ==
LOC: WOUND CARE 11:40
PROVIDERS: ATTEND Surgery
DX: T81.89XD Other complications of procedures, not elsewhere classified, subsequent encounter (principal); E11.621 Type 2 diabetes mellitus with foot ulcer; L89.892 Pressure ulcer of other site, stage 2; L97.524 Non-pressure chronic ulcer of other part of left foot with necrosis of bone; I12.9 Hypertensive chronic kidney disease with stage 1 through stage 4 chronic kidney disease, or unspecified chronic kidney disease; E11.22 Type 2 diabetes mellitus with diabetic chronic kidney disease; N18.3 Chronic kidney disease, stage 3 (moderate); E11.40 Type 2 diabetes mellitus with diabetic neuropathy, unspecified; G60.9 Hereditary and idiopathic neuropathy, unspecified; I25.10 Atherosclerotic heart disease of native coronary artery without angina pectoris; L84 Corns and callosities; M10.9 Gout, unspecified; I25.2 Old myocardial infarction; E78.5 Hyperlipidemia, unspecified; Z79.01 Long term (current) use of anticoagulants; Z79.02 Long term (current) use of antithrombotics/antiplatelets; Z79.82 Long term (current) use of aspirin; Z79.899 Other long term (current) drug therapy; Z95.5 Presence of coronary angioplasty implant and graft; Y83.8 Other surgical procedures as the cause of abnormal reaction of the patient, or of later complication, without mention of misadventure at the time of the procedure
CPT/HCPCS: 97597; J7999; A4663; A6021; A6154; A6212

== ENCOUNTER 2019-02-10 11:45 | Day surgery (SDC) | payer MEDICAID ==
[2019-02-10] MEDS ORDERED: LIDOcaine 2% 5ml jelly ONE ×2 (12:13→12:25)
[2019-02-10] MEDS ORDERED: nystatin/triamcinolone cream 15gm TP ONE (12:45)
== END 2019-02-10 13:01 | disposition home or self-care (01) ==
LOC: WOUND CARE 11:45
PROVIDERS: ATTEND Surgery
DX: T81.89XD Other complications of procedures, not elsewhere classified, subsequent encounter (principal); E11.621 Type 2 diabetes mellitus with foot ulcer; L89.892 Pressure ulcer of other site, stage 2; L97.522 Non-pressure chronic ulcer of other part of left foot with fat layer exposed; S81.812A Laceration without foreign body, left lower leg, initial encounter; I12.9 Hypertensive chronic kidney disease with stage 1 through stage 4 chronic kidney disease, or unspecified chronic kidney disease; E11.22 Type 2 diabetes mellitus with diabetic chronic kidney disease; N18.3 Chronic kidney disease, stage 3 (moderate); E11.40 Type 2 diabetes mellitus with diabetic neuropathy, unspecified; G60.9 Hereditary and idiopathic neuropathy, unspecified; I25.10 Atherosclerotic heart disease of native coronary artery without angina pectoris; L84 Corns and callosities; M10.9 Gout, unspecified; I25.2 Old myocardial infarction; E78.5 Hyperlipidemia, unspecified; Z79.01 Long term (current) use of anticoagulants; Z79.02 Long term (current) use of antithrombotics/antiplatelets; Z79.82 Long term (current) use of aspirin; Z79.899 Other long term (current) drug therapy; Z95.5 Presence of coronary angioplasty implant and graft; X58.XXXA Exposure to other specified factors, initial encounter; Y93.89 Activity, other specified; Y92.89 Other specified places as the place of occurrence of the external cause; Y99.8 Other external cause status; Y83.8 Other surgical procedures as the cause of abnormal reaction of the patient, or of later complication, without mention of misadventure at the time of the procedure
CPT/HCPCS: 97597; 97602; A6209; J7999; A4663; A6021; A6154

== ENCOUNTER 2019-02-17 12:00 | Day surgery (SDC) | payer MEDICAID ==
[2019-02-17] MEDS ORDERED: LIDOcaine 2% 5ml jelly ONE (12:07)
[2019-02-17] MEDS ORDERED: nystatin/triamcinolone cream 15gm TP ONE (12:40)
== END 2019-02-17 12:51 | disposition home or self-care (01) ==
LOC: WOUND CARE 12:00
PROVIDERS: ATTEND Surgery
DX: T81.89XD Other complications of procedures, not elsewhere classified, subsequent encounter (principal); E11.621 Type 2 diabetes mellitus with foot ulcer; L89.892 Pressure ulcer of other site, stage 2; L97.522 Non-pressure chronic ulcer of other part of left foot with fat layer exposed; S81.812D Laceration without foreign body, left lower leg, subsequent encounter; I12.9 Hypertensive chronic kidney disease with stage 1 through stage 4 chronic kidney disease, or unspecified chronic kidney disease; E11.22 Type 2 diabetes mellitus with diabetic chronic kidney disease; N18.3 Chronic kidney disease, stage 3 (moderate); E11.40 Type 2 diabetes mellitus with diabetic neuropathy, unspecified; G60.9 Hereditary and idiopathic neuropathy, unspecified; I25.10 Atherosclerotic heart disease of native coronary artery without angina pectoris; L84 Corns and callosities; M10.9 Gout, unspecified; I25.2 Old myocardial infarction; E78.5 Hyperlipidemia, unspecified; Z79.01 Long term (current) use of anticoagulants; Z79.02 Long term (current) use of antithrombotics/antiplatelets; Z79.82 Long term (current) use of aspirin; Z79.899 Other long term (current) drug therapy; Z95.5 Presence of coronary angioplasty implant and graft; X58.XXXD Exposure to other specified factors, subsequent encounter; Y83.8 Other surgical procedures as the cause of abnormal reaction of the patient, or of later complication, without mention of misadventure at the time of the procedure
CPT/HCPCS: 97597; A6223; J7999; A4663; A6021

== ENCOUNTER 2019-03-03 11:30 | Day surgery (SDC) | payer MEDICAID ==
[2019-03-03] MEDS ORDERED: LIDOcaine 2% 5ml jelly ONE ×2 (11:53→12:39)
[2019-03-03] MEDS ORDERED: nystatin/triamcinolone cream 15gm TP ONE (13:03)
[2019-03-03] MEDS ORDERED: gadobutrol 10mmol/10ml inj. IV ONE ×2 (14:38)
== END 2019-03-03 14:00 | disposition home or self-care (01) ==
LOC: WOUND CARE 11:30
PROVIDERS: ATTEND Surgery
DX: T81.89XD Other complications of procedures, not elsewhere classified, subsequent encounter (principal); E11.621 Type 2 diabetes mellitus with foot ulcer; L89.892 Pressure ulcer of other site, stage 2; L97.522 Non-pressure chronic ulcer of other part of left foot with fat layer exposed; S81.812D Laceration without foreign body, left lower leg, subsequent encounter; I12.9 Hypertensive chronic kidney disease with stage 1 through stage 4 chronic kidney disease, or unspecified chronic kidney disease; E11.22 Type 2 diabetes mellitus with diabetic chronic kidney disease; N18.3 Chronic kidney disease, stage 3 (moderate); E11.40 Type 2 diabetes mellitus with diabetic neuropathy, unspecified; G60.9 Hereditary and idiopathic neuropathy, unspecified; I25.10 Atherosclerotic heart disease of native coronary artery without angina pectoris; L84 Corns and callosities; M10.9 Gout, unspecified; I25.2 Old myocardial infarction; E78.5 Hyperlipidemia, unspecified; Z79.01 Long term (current) use of anticoagulants; Z79.02 Long term (current) use of antithrombotics/antiplatelets; Z79.82 Long term (current) use of aspirin; Z79.899 Other long term (current) drug therapy; Z95.5 Presence of coronary angioplasty implant and graft; X58.XXXD Exposure to other specified factors, subsequent encounter; Y83.8 Other surgical procedures as the cause of abnormal reaction of the patient, or of later complication, without mention of misadventure at the time of the procedure
CPT/HCPCS: 73723; 97597; A9585; J7999; A4663; A6021; A6154

== ENCOUNTER 2019-03-24 11:00 | Day surgery (SDC) | payer MEDICAID ==
[2019-03-24] MEDS ORDERED: LIDOcaine 2% 5ml jelly ONE (11:37)
[2019-03-24] MEDS ORDERED: nystatin/triamcinolone cream 15gm TP ONE ×2 (14:49→15:36)
== END 2019-03-24 13:15 | disposition home or self-care (01) ==
LOC: WOUND CARE 11:00
PROVIDERS: ATTEND Surgery
DX: T81.89XD Other complications of procedures, not elsewhere classified, subsequent encounter (principal); E11.621 Type 2 diabetes mellitus with foot ulcer; L97.522 Non-pressure chronic ulcer of other part of left foot with fat layer exposed; S81.812D Laceration without foreign body, left lower leg, subsequent encounter; I12.9 Hypertensive chronic kidney disease with stage 1 through stage 4 chronic kidney disease, or unspecified chronic kidney disease; E11.22 Type 2 diabetes mellitus with diabetic chronic kidney disease; N18.3 Chronic kidney disease, stage 3 (moderate); E11.40 Type 2 diabetes mellitus with diabetic neuropathy, unspecified; G60.9 Hereditary and idiopathic neuropathy, unspecified; I25.10 Atherosclerotic heart disease of native coronary artery without angina pectoris; L84 Corns and callosities; M10.9 Gout, unspecified; I25.2 Old myocardial infarction; E78.5 Hyperlipidemia, unspecified; Z79.01 Long term (current) use of anticoagulants; Z79.02 Long term (current) use of antithrombotics/antiplatelets; Z79.82 Long term (current) use of aspirin; Z79.899 Other long term (current) drug therapy; Z95.5 Presence of coronary angioplasty implant and graft; X58.XXXD Exposure to other specified factors, subsequent encounter; Y83.8 Other surgical procedures as the cause of abnormal reaction of the patient, or of later complication, without mention of misadventure at the time of the procedure
CPT/HCPCS: 97597; J7999; A4663; A6021; A6154; A6446

== ENCOUNTER 2019-04-03 11:46 | Day surgery (SDC) | payer MEDICAID ==
[2019-04-03] MEDS ORDERED: LIDOcaine 2% 5ml jelly ONE (12:08)
== END 2019-04-03 13:04 | disposition home or self-care (01) ==
LOC: WOUND CARE 11:46
PROVIDERS: ATTEND Surgery
DX: T81.89XD Other complications of procedures, not elsewhere classified, subsequent encounter (principal); E11.621 Type 2 diabetes mellitus with foot ulcer; L97.522 Non-pressure chronic ulcer of other part of left foot with fat layer exposed; S81.812D Laceration without foreign body, left lower leg, subsequent encounter; S90.812A Abrasion, left foot, initial encounter; I12.9 Hypertensive chronic kidney disease with stage 1 through stage 4 chronic kidney disease, or unspecified chronic kidney disease; E11.22 Type 2 diabetes mellitus with diabetic chronic kidney disease; N18.3 Chronic kidney disease, stage 3 (moderate); E11.40 Type 2 diabetes mellitus with diabetic neuropathy, unspecified; G60.9 Hereditary and idiopathic neuropathy, unspecified; I25.10 Atherosclerotic heart disease of native coronary artery without angina pectoris; L84 Corns and callosities; M10.9 Gout, unspecified; I25.2 Old myocardial infarction; E78.5 Hyperlipidemia, unspecified; Z79.01 Long term (current) use of anticoagulants; Z79.02 Long term (current) use of antithrombotics/antiplatelets; Z79.82 Long term (current) use of aspirin; Z79.899 Other long term (current) drug therapy; Z95.5 Presence of coronary angioplasty implant and graft; X58.XXXD Exposure to other specified factors, subsequent encounter; X58.XXXA Exposure to other specified factors, initial encounter; Y93.89 Activity, other specified; Y92.89 Other specified places as the place of occurrence of the external cause; Y99.8 Other external cause status; Y83.8 Other surgical procedures as the cause of abnormal reaction of the patient, or of later complication, without mention of misadventure at the time of the procedure
CPT/HCPCS: 97597; A4663; A6021; A6154; A6441

== ENCOUNTER 2019-04-07 11:45 | Outpatient (CLI) | payer MEDICAID ==
[2019-04-07] MEDS ORDERED: LIDOcaine 2% 5ml jelly ONE ×2 (12:08)
== END 2019-04-07 13:25 | disposition home or self-care (01) ==
LOC: WOUND CARE 11:45
PROVIDERS: ATTEND Surgery
DX: T81.89XD Other complications of procedures, not elsewhere classified, subsequent encounter (principal); E11.621 Type 2 diabetes mellitus with foot ulcer; L97.522 Non-pressure chronic ulcer of other part of left foot with fat layer exposed; S81.812D Laceration without foreign body, left lower leg, subsequent encounter; S90.812D Abrasion, left foot, subsequent encounter; I12.9 Hypertensive chronic kidney disease with stage 1 through stage 4 chronic kidney disease, or unspecified chronic kidney disease; E11.22 Type 2 diabetes mellitus with diabetic chronic kidney disease; N18.3 Chronic kidney disease, stage 3 (moderate); E11.40 Type 2 diabetes mellitus with diabetic neuropathy, unspecified; G60.9 Hereditary and idiopathic neuropathy, unspecified; I25.10 Atherosclerotic heart disease of native coronary artery without angina pectoris; L84 Corns and callosities; M10.9 Gout, unspecified; I25.2 Old myocardial infarction; E78.5 Hyperlipidemia, unspecified; Z79.01 Long term (current) use of anticoagulants; Z79.02 Long term (current) use of antithrombotics/antiplatelets; Z79.899 Other long term (current) drug therapy; Z95.5 Presence of coronary angioplasty implant and graft; X58.XXXD Exposure to other specified factors, subsequent encounter; Y83.8 Other surgical procedures as the cause of abnormal reaction of the patient, or of later complication, without mention of misadventure at the time of the procedure
CPT/HCPCS: 29581; A4663; A6021; A6154; A6196; A6441

== ENCOUNTER 2019-04-14 11:40 | Outpatient (CLI) | payer MEDICAID ==
[2019-04-14] MEDS ORDERED: LIDOcaine 2% 5ml jelly ONE (12:44)
== END 2019-04-14 13:33 | disposition home or self-care (01) ==
LOC: WOUND CARE 11:40
PROVIDERS: ATTEND Surgery
DX: T81.89XD Other complications of procedures, not elsewhere classified, subsequent encounter (principal); E11.621 Type 2 diabetes mellitus with foot ulcer; L97.522 Non-pressure chronic ulcer of other part of left foot with fat layer exposed; S81.812D Laceration without foreign body, left lower leg, subsequent encounter; S90.812D Abrasion, left foot, subsequent encounter; I12.9 Hypertensive chronic kidney disease with stage 1 through stage 4 chronic kidney disease, or unspecified chronic kidney disease; E11.22 Type 2 diabetes mellitus with diabetic chronic kidney disease; N18.3 Chronic kidney disease, stage 3 (moderate); E11.40 Type 2 diabetes mellitus with diabetic neuropathy, unspecified; G60.9 Hereditary and idiopathic neuropathy, unspecified; I25.10 Atherosclerotic heart disease of native coronary artery without angina pectoris; L84 Corns and callosities; M10.9 Gout, unspecified; I25.2 Old myocardial infarction; E78.5 Hyperlipidemia, unspecified; Z79.01 Long term (current) use of anticoagulants; Z79.02 Long term (current) use of antithrombotics/antiplatelets; Z79.899 Other long term (current) drug therapy; Z95.5 Presence of coronary angioplasty implant and graft; X58.XXXD Exposure to other specified factors, subsequent encounter; Y83.8 Other surgical procedures as the cause of abnormal reaction of the patient, or of later complication, without mention of misadventure at the time of the procedure
CPT/HCPCS: 29581; A4663; A6021; A6154; A6441

== ENCOUNTER 2019-04-17 14:30 | Outpatient (CLI) | payer MEDICAID ==
[2019-04-17] MEDS ORDERED: nystatin/triamcinolone cream 15gm TP ONE (14:42)
[2019-04-17] MEDS ORDERED: LIDOcaine 2% 5ml jelly ONE (14:51)
== END 2019-04-17 14:55 | disposition home or self-care (01) ==
LOC: EDSTATUS 14:30 → WOUND CARE 14:30
PROVIDERS: ATTEND Surgery
DX: T81.89XD Other complications of procedures, not elsewhere classified, subsequent encounter (principal); E11.621 Type 2 diabetes mellitus with foot ulcer; L97.522 Non-pressure chronic ulcer of other part of left foot with fat layer exposed; S81.812D Laceration without foreign body, left lower leg, subsequent encounter; S90.812D Abrasion, left foot, subsequent encounter; I12.9 Hypertensive chronic kidney disease with stage 1 through stage 4 chronic kidney disease, or unspecified chronic kidney disease; E11.22 Type 2 diabetes mellitus with diabetic chronic kidney disease; N18.3 Chronic kidney disease, stage 3 (moderate); E11.40 Type 2 diabetes mellitus with diabetic neuropathy, unspecified; G60.9 Hereditary and idiopathic neuropathy, unspecified; I25.10 Atherosclerotic heart disease of native coronary artery without angina pectoris; L84 Corns and callosities; M10.9 Gout, unspecified; I25.2 Old myocardial infarction; E78.5 Hyperlipidemia, unspecified; Z79.01 Long term (current) use of anticoagulants; Z79.02 Long term (current) use of antithrombotics/antiplatelets; Z79.899 Other long term (current) drug therapy; Z95.5 Presence of coronary angioplasty implant and graft; X58.XXXD Exposure to other specified factors, subsequent encounter; Y83.8 Other surgical procedures as the cause of abnormal reaction of the patient, or of later complication, without mention of misadventure at the time of the procedure
CPT/HCPCS: 29581; J7999; A4663; A6021; A6154; A6441

== ENCOUNTER 2019-04-21 11:40 | Outpatient (CLI) | payer MEDICAID ==
[2019-04-21] MEDS ORDERED: LIDOcaine 2% 5ml jelly ONE ×2 (12:19)
[2019-04-21] MEDS ORDERED: nystatin/triamcinolone cream 15gm TP ONE (12:27)
[2019-04-21] MEDS ORDERED: gentamicin 0.1% topical ointment 15gm TP ONE (12:32)
== END 2019-04-21 12:55 | disposition home or self-care (01) ==
LOC: WOUND CARE 11:40 → EDSTATUS 12:00 → WOUND CARE 12:55
PROVIDERS: ATTEND Surgery
DX: T81.89XD Other complications of procedures, not elsewhere classified, subsequent encounter (principal); E11.621 Type 2 diabetes mellitus with foot ulcer; L97.522 Non-pressure chronic ulcer of other part of left foot with fat layer exposed; S81.812D Laceration without foreign body, left lower leg, subsequent encounter; S90.812D Abrasion, left foot, subsequent encounter; I12.9 Hypertensive chronic kidney disease with stage 1 through stage 4 chronic kidney disease, or unspecified chronic kidney disease; E11.22 Type 2 diabetes mellitus with diabetic chronic kidney disease; N18.3 Chronic kidney disease, stage 3 (moderate); E11.40 Type 2 diabetes mellitus with diabetic neuropathy, unspecified; G60.9 Hereditary and idiopathic neuropathy, unspecified; I25.10 Atherosclerotic heart disease of native coronary artery without angina pectoris; L84 Corns and callosities; M10.9 Gout, unspecified; I25.2 Old myocardial infarction; E78.5 Hyperlipidemia, unspecified; Z79.01 Long term (current) use of anticoagulants; Z79.02 Long term (current) use of antithrombotics/antiplatelets; Z79.899 Other long term (current) drug therapy; Z95.5 Presence of coronary angioplasty implant and graft; X58.XXXD Exposure to other specified factors, subsequent encounter; Y83.8 Other surgical procedures as the cause of abnormal reaction of the patient, or of later complication, without mention of misadventure at the time of the procedure
CPT/HCPCS: 29581; J7999; A4663; A6021; A6154; A6196

== ENCOUNTER 2019-04-24 12:15 | Outpatient (CLI) | payer MEDICAID ==
[2019-04-24] MEDS ORDERED: nystatin/triamcinolone cream 15gm TP ONE (12:23)
[2019-04-24] MEDS ORDERED: gentamicin 0.1% topical ointment 15gm TP ONE (12:23)
[2019-04-24] MEDS ORDERED: LIDOcaine 2% 5ml jelly ONE (12:34)
== END 2019-04-24 13:10 | disposition home or self-care (01) ==
LOC: WOUND CARE 12:15
PROVIDERS: ATTEND Nurse Practitioner Family
DX: T81.89XD Other complications of procedures, not elsewhere classified, subsequent encounter (principal); E11.621 Type 2 diabetes mellitus with foot ulcer; L97.522 Non-pressure chronic ulcer of other part of left foot with fat layer exposed; S81.812D Laceration without foreign body, left lower leg, subsequent encounter; S90.812D Abrasion, left foot, subsequent encounter; I12.9 Hypertensive chronic kidney disease with stage 1 through stage 4 chronic kidney disease, or unspecified chronic kidney disease; E11.22 Type 2 diabetes mellitus with diabetic chronic kidney disease; N18.3 Chronic kidney disease, stage 3 (moderate); E11.40 Type 2 diabetes mellitus with diabetic neuropathy, unspecified; G60.9 Hereditary and idiopathic neuropathy, unspecified; I25.10 Atherosclerotic heart disease of native coronary artery without angina pectoris; L84 Corns and callosities; M10.9 Gout, unspecified; I25.2 Old myocardial infarction; E78.5 Hyperlipidemia, unspecified; Z79.01 Long term (current) use of anticoagulants; Z79.02 Long term (current) use of antithrombotics/antiplatelets; Z79.899 Other long term (current) drug therapy; Z95.5 Presence of coronary angioplasty implant and graft; X58.XXXD Exposure to other specified factors, subsequent encounter; Y83.8 Other surgical procedures as the cause of abnormal reaction of the patient, or of later complication, without mention of misadventure at the time of the procedure
CPT/HCPCS: 29581; J7999; A4663; A6021; A6154; A6196; A6441

== ENCOUNTER 2019-04-29 11:05 | Outpatient (CLI) | payer MEDICAID ==
[2019-04-29] MEDS ORDERED: LIDOcaine 2% 5ml jelly ONE (12:10)
[2019-04-29] MEDS ORDERED: gentamicin 0.1% topical ointment 15gm TP ONE (13:04)
[2019-04-29] MEDS ORDERED: nystatin/triamcinolone cream 15gm TP ONE (13:04)
== END 2019-04-29 13:37 | disposition home or self-care (01) ==
LOC: WOUND CARE 11:05
PROVIDERS: ATTEND Nurse Practitioner Family
DX: T81.89XD Other complications of procedures, not elsewhere classified, subsequent encounter (principal); E11.621 Type 2 diabetes mellitus with foot ulcer; L97.522 Non-pressure chronic ulcer of other part of left foot with fat layer exposed; S81.812D Laceration without foreign body, left lower leg, subsequent encounter; S90.812D Abrasion, left foot, subsequent encounter; I12.9 Hypertensive chronic kidney disease with stage 1 through stage 4 chronic kidney disease, or unspecified chronic kidney disease; E11.22 Type 2 diabetes mellitus with diabetic chronic kidney disease; N18.3 Chronic kidney disease, stage 3 (moderate); E11.40 Type 2 diabetes mellitus with diabetic neuropathy, unspecified; G60.9 Hereditary and idiopathic neuropathy, unspecified; I25.10 Atherosclerotic heart disease of native coronary artery without angina pectoris; L84 Corns and callosities; M10.9 Gout, unspecified; I25.2 Old myocardial infarction; E78.5 Hyperlipidemia, unspecified; F19.10 Other psychoactive substance abuse, uncomplicated; F17.200 Nicotine dependence, unspecified, uncomplicated; Z79.01 Long term (current) use of anticoagulants; Z79.02 Long term (current) use of antithrombotics/antiplatelets; Z79.899 Other long term (current) drug therapy; Z95.5 Presence of coronary angioplasty implant and graft; Z86.19 Personal history of other infectious and parasitic diseases; Z79.82 Long term (current) use of aspirin; X58.XXXD Exposure to other specified factors, subsequent encounter; Y83.8 Other surgical procedures as the cause of abnormal reaction of the patient, or of later complication, without mention of misadventure at the time of the procedure
CPT/HCPCS: 29581; J7999; A4663; A6021; A6154; A6196; A6212; A6441

== ENCOUNTER 2019-05-02 12:25 | Outpatient (CLI) | payer MEDICAID ==
[~2019-05-02 12:25] MED LIST changes: +gentamicin 0.1% topical ointment 15gm TP ONE; +nystatin/triamcinolone cream 15gm TP ONE
== END 2019-05-02 12:59 | disposition home or self-care (01) ==
LOC: WOUND CARE 12:25
PROVIDERS: ATTEND Surgery
DX: T81.89XD Other complications of procedures, not elsewhere classified, subsequent encounter (principal); E11.621 Type 2 diabetes mellitus with foot ulcer; L97.522 Non-pressure chronic ulcer of other part of left foot with fat layer exposed; S81.812D Laceration without foreign body, left lower leg, subsequent encounter; S90.812D Abrasion, left foot, subsequent encounter; I12.9 Hypertensive chronic kidney disease with stage 1 through stage 4 chronic kidney disease, or unspecified chronic kidney disease; E11.22 Type 2 diabetes mellitus with diabetic chronic kidney disease; N18.3 Chronic kidney disease, stage 3 (moderate); E11.40 Type 2 diabetes mellitus with diabetic neuropathy, unspecified; G60.9 Hereditary and idiopathic neuropathy, unspecified; I25.10 Atherosclerotic heart disease of native coronary artery without angina pectoris; L84 Corns and callosities; M10.9 Gout, unspecified; I25.2 Old myocardial infarction; E78.5 Hyperlipidemia, unspecified; F19.10 Other psychoactive substance abuse, uncomplicated; F17.200 Nicotine dependence, unspecified, uncomplicated; Z79.01 Long term (current) use of anticoagulants; Z79.02 Long term (current) use of antithrombotics/antiplatelets; Z79.899 Other long term (current) drug therapy; Z95.5 Presence of coronary angioplasty implant and graft; Z86.19 Personal history of other infectious and parasitic diseases; Z79.82 Long term (current) use of aspirin; X58.XXXD Exposure to other specified factors, subsequent encounter; Y83.8 Other surgical procedures as the cause of abnormal reaction of the patient, or of later complication, without mention of misadventure at the time of the procedure
CPT/HCPCS: 29581; J7999; A4663; A6021; A6154; A6196; A6441

== ENCOUNTER 2019-05-06 11:15 | Outpatient (CLI) | payer MEDICAID ==
[~2019-05-06 11:15] MED LIST changes: -gentamicin 0.1% topical ointment 15gm TP ONE; -nystatin/triamcinolone cream 15gm TP ONE
[2019-05-06] MEDS ORDERED: gentamicin 0.1% topical ointment 15gm TP ONE (11:42)
[2019-05-06] MEDS ORDERED: nystatin/triamcinolone cream 15gm TP ONE (11:43)
== END 2019-05-06 12:22 | disposition home or self-care (01) ==
LOC: WOUND CARE 11:15
PROVIDERS: ATTEND Surgery
DX: T81.89XD Other complications of procedures, not elsewhere classified, subsequent encounter (principal); E11.621 Type 2 diabetes mellitus with foot ulcer; L97.522 Non-pressure chronic ulcer of other part of left foot with fat layer exposed; S81.812D Laceration without foreign body, left lower leg, subsequent encounter; S90.812D Abrasion, left foot, subsequent encounter; I12.9 Hypertensive chronic kidney disease with stage 1 through stage 4 chronic kidney disease, or unspecified chronic kidney disease; E11.22 Type 2 diabetes mellitus with diabetic chronic kidney disease; N18.3 Chronic kidney disease, stage 3 (moderate); E11.40 Type 2 diabetes mellitus with diabetic neuropathy, unspecified; G60.9 Hereditary and idiopathic neuropathy, unspecified; I25.10 Atherosclerotic heart disease of native coronary artery without angina pectoris; L84 Corns and callosities; M10.9 Gout, unspecified; I25.2 Old myocardial infarction; E78.5 Hyperlipidemia, unspecified; F19.10 Other psychoactive substance abuse, uncomplicated; F17.200 Nicotine dependence, unspecified, uncomplicated; Z79.01 Long term (current) use of anticoagulants; Z79.02 Long term (current) use of antithrombotics/antiplatelets; Z79.899 Other long term (current) drug therapy; Z95.5 Presence of coronary angioplasty implant and graft; Z86.19 Personal history of other infectious and parasitic diseases; Z79.82 Long term (current) use of aspirin; X58.XXXD Exposure to other specified factors, subsequent encounter; Y83.8 Other surgical procedures as the cause of abnormal reaction of the patient, or of later complication, without mention of misadventure at the time of the procedure
CPT/HCPCS: 29581; J7999; A4663; A6021; A6154; A6196; A6441

== ENCOUNTER 2019-05-19 12:00 | Day surgery (SDC) | payer MEDICAID ==
[2019-05-19] MEDS ORDERED: LIDOcaine 2% 5ml jelly ONE (12:31)
[2019-05-19] MEDS ORDERED: gentamicin 0.1% topical ointment 15gm TP ONE (12:46)
[2019-05-19] MEDS ORDERED: nystatin/triamcinolone cream 15gm TP ONE (12:47)
== END 2019-05-19 13:15 | disposition home or self-care (01) ==
LOC: WOUND CARE 12:00
PROVIDERS: ATTEND Surgery
DX: T81.89XD Other complications of procedures, not elsewhere classified, subsequent encounter (principal); E11.621 Type 2 diabetes mellitus with foot ulcer; L97.522 Non-pressure chronic ulcer of other part of left foot with fat layer exposed; S81.812D Laceration without foreign body, left lower leg, subsequent encounter; S90.812D Abrasion, left foot, subsequent encounter; I12.9 Hypertensive chronic kidney disease with stage 1 through stage 4 chronic kidney disease, or unspecified chronic kidney disease; E11.22 Type 2 diabetes mellitus with diabetic chronic kidney disease; N18.3 Chronic kidney disease, stage 3 (moderate); E11.40 Type 2 diabetes mellitus with diabetic neuropathy, unspecified; G60.9 Hereditary and idiopathic neuropathy, unspecified; I25.10 Atherosclerotic heart disease of native coronary artery without angina pectoris; L84 Corns and callosities; M10.9 Gout, unspecified; I25.2 Old myocardial infarction; E78.5 Hyperlipidemia, unspecified; F19.10 Other psychoactive substance abuse, uncomplicated; F17.200 Nicotine dependence, unspecified, uncomplicated; Z79.01 Long term (current) use of anticoagulants; Z79.02 Long term (current) use of antithrombotics/antiplatelets; Z79.899 Other long term (current) drug therapy; Z95.5 Presence of coronary angioplasty implant and graft; Z86.19 Personal history of other infectious and parasitic diseases; Z79.82 Long term (current) use of aspirin; X58.XXXD Exposure to other specified factors, subsequent encounter; Y83.8 Other surgical procedures as the cause of abnormal reaction of the patient, or of later complication, without mention of misadventure at the time of the procedure
CPT/HCPCS: 29581; J7999; A4663; A6021; A6154; A6196; A6441

== ENCOUNTER 2019-05-26 11:58 | Outpatient (CLI) | payer MEDICAID ==
[2019-05-26] MEDS ORDERED: LIDOcaine 2% 5ml jelly ONE (12:24)
[2019-05-26] MEDS ORDERED: nystatin/triamcinolone cream 15gm TP ONE (12:45)
[2019-05-26] MEDS ORDERED: gentamicin 0.1% topical ointment 15gm TP ONE (12:45)
== END 2019-05-26 13:12 | disposition home or self-care (01) ==
LOC: WOUND CARE 11:58 → EDSTATUS 12:00 → WOUND CARE 13:12
PROVIDERS: ATTEND Surgery
DX: T81.89XD Other complications of procedures, not elsewhere classified, subsequent encounter (principal); E11.621 Type 2 diabetes mellitus with foot ulcer; L97.522 Non-pressure chronic ulcer of other part of left foot with fat layer exposed; S81.812D Laceration without foreign body, left lower leg, subsequent encounter; S90.812D Abrasion, left foot, subsequent encounter; I12.9 Hypertensive chronic kidney disease with stage 1 through stage 4 chronic kidney disease, or unspecified chronic kidney disease; E11.22 Type 2 diabetes mellitus with diabetic chronic kidney disease; N18.3 Chronic kidney disease, stage 3 (moderate); E11.40 Type 2 diabetes mellitus with diabetic neuropathy, unspecified; G60.9 Hereditary and idiopathic neuropathy, unspecified; I25.10 Atherosclerotic heart disease of native coronary artery without angina pectoris; L84 Corns and callosities; M10.9 Gout, unspecified; I25.2 Old myocardial infarction; E78.5 Hyperlipidemia, unspecified; F19.10 Other psychoactive substance abuse, uncomplicated; F17.200 Nicotine dependence, unspecified, uncomplicated; Z79.01 Long term (current) use of anticoagulants; Z79.02 Long term (current) use of antithrombotics/antiplatelets; Z79.899 Other long term (current) drug therapy; Z95.5 Presence of coronary angioplasty implant and graft; Z86.19 Personal history of other infectious and parasitic diseases; Z79.82 Long term (current) use of aspirin; X58.XXXD Exposure to other specified factors, subsequent encounter; Y83.8 Other surgical procedures as the cause of abnormal reaction of the patient, or of later complication, without mention of misadventure at the time of the procedure
CPT/HCPCS: 29581; J7999; A4663; A6021; A6154; A6196; A6441

== ENCOUNTER 2019-06-03 12:20 | Outpatient (CLI) | payer MEDICAID ==
[~2019-06-03 12:20] MED LIST changes: +LIDOcaine 2% 5ml jelly ONE
[2019-06-03] MEDS ORDERED: gentamicin 0.1% topical ointment 15gm TP ONE (12:31)
[2019-06-03] MEDS ORDERED: nystatin/triamcinolone cream 15gm TP ONE (12:32)
== END 2019-06-03 13:02 | disposition home or self-care (01) ==
LOC: WOUND CARE 12:20
PROVIDERS: ATTEND Nurse Practitioner Family
DX: T81.89XD Other complications of procedures, not elsewhere classified, subsequent encounter (principal); E11.621 Type 2 diabetes mellitus with foot ulcer; L97.522 Non-pressure chronic ulcer of other part of left foot with fat layer exposed; S81.812D Laceration without foreign body, left lower leg, subsequent encounter; S90.812D Abrasion, left foot, subsequent encounter; I12.9 Hypertensive chronic kidney disease with stage 1 through stage 4 chronic kidney disease, or unspecified chronic kidney disease; E11.22 Type 2 diabetes mellitus with diabetic chronic kidney disease; N18.3 Chronic kidney disease, stage 3 (moderate); E11.40 Type 2 diabetes mellitus with diabetic neuropathy, unspecified; G60.9 Hereditary and idiopathic neuropathy, unspecified; I25.10 Atherosclerotic heart disease of native coronary artery without angina pectoris; L84 Corns and callosities; M10.9 Gout, unspecified; I25.2 Old myocardial infarction; E78.5 Hyperlipidemia, unspecified; F19.10 Other psychoactive substance abuse, uncomplicated; F17.200 Nicotine dependence, unspecified, uncomplicated; Z79.01 Long term (current) use of anticoagulants; Z79.02 Long term (current) use of antithrombotics/antiplatelets; Z79.899 Other long term (current) drug therapy; Z95.5 Presence of coronary angioplasty implant and graft; Z86.19 Personal history of other infectious and parasitic diseases; Z79.82 Long term (current) use of aspirin; X58.XXXD Exposure to other specified factors, subsequent encounter; Y83.8 Other surgical procedures as the cause of abnormal reaction of the patient, or of later complication, without mention of misadventure at the time of the procedure
CPT/HCPCS: 29581; J7999

== ENCOUNTER 2019-06-24 11:31 | Day surgery (SDC) | payer MEDICAID ==
[~2019-06-24 11:31] MED LIST changes: -LIDOcaine 2% 5ml jelly ONE
[2019-06-24] MEDS ORDERED: LIDOcaine 2% 5ml jelly ONE (12:04)
[2019-06-24] MEDS ORDERED: gentamicin 0.1% topical ointment 15gm TP ONE (12:20)
[2019-06-24] MEDS ORDERED: nystatin/triamcinolone cream 15gm TP ONE (12:20)
== END 2019-06-24 12:50 | disposition home or self-care (01) ==
LOC: WOUND CARE 11:31
PROVIDERS: ATTEND Nurse Practitioner Family
DX: T81.89XD Other complications of procedures, not elsewhere classified, subsequent encounter (principal); E11.621 Type 2 diabetes mellitus with foot ulcer; L97.522 Non-pressure chronic ulcer of other part of left foot with fat layer exposed; S81.812D Laceration without foreign body, left lower leg, subsequent encounter; S90.812D Abrasion, left foot, subsequent encounter; I12.9 Hypertensive chronic kidney disease with stage 1 through stage 4 chronic kidney disease, or unspecified chronic kidney disease; E11.22 Type 2 diabetes mellitus with diabetic chronic kidney disease; N18.3 Chronic kidney disease, stage 3 (moderate); E11.40 Type 2 diabetes mellitus with diabetic neuropathy, unspecified; G60.9 Hereditary and idiopathic neuropathy, unspecified; I25.10 Atherosclerotic heart disease of native coronary artery without angina pectoris; L84 Corns and callosities; M10.9 Gout, unspecified; I25.2 Old myocardial infarction; E78.5 Hyperlipidemia, unspecified; F19.10 Other psychoactive substance abuse, uncomplicated; F17.200 Nicotine dependence, unspecified, uncomplicated; Z79.01 Long term (current) use of anticoagulants; Z79.02 Long term (current) use of antithrombotics/antiplatelets; Z79.899 Other long term (current) drug therapy; Z95.5 Presence of coronary angioplasty implant and graft; Z86.19 Personal history of other infectious and parasitic diseases; Z79.82 Long term (current) use of aspirin; X58.XXXD Exposure to other specified factors, subsequent encounter; Y83.8 Other surgical procedures as the cause of abnormal reaction of the patient, or of later complication, without mention of misadventure at the time of the procedure
CPT/HCPCS: 97597; J7999

== ENCOUNTER 2019-06-30 11:35 | Day surgery (SDC) | payer MEDICAID ==
[2019-06-30] MEDS ORDERED: LIDOcaine 2% 5ml jelly ONE (12:01)
[2019-06-30] MEDS ORDERED: gentamicin 0.1% topical ointment 15gm TP ONE (12:18)
[2019-06-30] MEDS ORDERED: nystatin/triamcinolone cream 15gm TP ONE (12:18)
== END 2019-06-30 12:44 | disposition home or self-care (01) ==
LOC: WOUND CARE 11:35
PROVIDERS: ATTEND Surgery
DX: T81.89XD Other complications of procedures, not elsewhere classified, subsequent encounter (principal); E11.621 Type 2 diabetes mellitus with foot ulcer; L97.522 Non-pressure chronic ulcer of other part of left foot with fat layer exposed; E11.622 Type 2 diabetes mellitus with other skin ulcer; L98.492 Non-pressure chronic ulcer of skin of other sites with fat layer exposed; S81.812D Laceration without foreign body, left lower leg, subsequent encounter; S90.812D Abrasion, left foot, subsequent encounter; I12.9 Hypertensive chronic kidney disease with stage 1 through stage 4 chronic kidney disease, or unspecified chronic kidney disease; E11.22 Type 2 diabetes mellitus with diabetic chronic kidney disease; N18.3 Chronic kidney disease, stage 3 (moderate); E11.40 Type 2 diabetes mellitus with diabetic neuropathy, unspecified; G60.9 Hereditary and idiopathic neuropathy, unspecified; I25.10 Atherosclerotic heart disease of native coronary artery without angina pectoris; L84 Corns and callosities; M10.9 Gout, unspecified; I25.2 Old myocardial infarction; E78.5 Hyperlipidemia, unspecified; F19.10 Other psychoactive substance abuse, uncomplicated; F17.200 Nicotine dependence, unspecified, uncomplicated; Z79.01 Long term (current) use of anticoagulants; Z79.02 Long term (current) use of antithrombotics/antiplatelets; Z79.899 Other long term (current) drug therapy; Z95.5 Presence of coronary angioplasty implant and graft; Z86.19 Personal history of other infectious and parasitic diseases; Z79.82 Long term (current) use of aspirin; X58.XXXD Exposure to other specified factors, subsequent encounter; Y83.8 Other surgical procedures as the cause of abnormal reaction of the patient, or of later complication, without mention of misadventure at the time of the procedure
CPT/HCPCS: 97597; J7999; A4663; A6021; A6154; A6212

== ENCOUNTER 2019-07-21 11:35 | Day surgery (SDC) | payer MEDICAID ==
[2019-07-21] MEDS ORDERED: LIDOcaine 2% 5ml jelly ONE (11:44)
[2019-07-21] MEDS ORDERED: gentamicin 0.1% topical ointment 15gm TP ONE (12:06)
[2019-07-21] MEDS ORDERED: nystatin/triamcinolone cream 15gm TP ONE (12:09)
== END 2019-07-21 12:33 | disposition home or self-care (01) ==
LOC: WOUND CARE 11:35
PROVIDERS: ATTEND Surgery
DX: E11.621 Type 2 diabetes mellitus with foot ulcer (principal); L97.522 Non-pressure chronic ulcer of other part of left foot with fat layer exposed; E11.622 Type 2 diabetes mellitus with other skin ulcer; L98.492 Non-pressure chronic ulcer of skin of other sites with fat layer exposed; S91.302D Unspecified open wound, left foot, subsequent encounter; I12.9 Hypertensive chronic kidney disease with stage 1 through stage 4 chronic kidney disease, or unspecified chronic kidney disease; E11.22 Type 2 diabetes mellitus with diabetic chronic kidney disease; N18.3 Chronic kidney disease, stage 3 (moderate); E11.40 Type 2 diabetes mellitus with diabetic neuropathy, unspecified; G60.9 Hereditary and idiopathic neuropathy, unspecified; I25.10 Atherosclerotic heart disease of native coronary artery without angina pectoris; L84 Corns and callosities; M10.9 Gout, unspecified; I25.2 Old myocardial infarction; E78.5 Hyperlipidemia, unspecified; F19.10 Other psychoactive substance abuse, uncomplicated; F17.200 Nicotine dependence, unspecified, uncomplicated; Z79.01 Long term (current) use of anticoagulants; Z79.02 Long term (current) use of antithrombotics/antiplatelets; Z79.899 Other long term (current) drug therapy; Z95.5 Presence of coronary angioplasty implant and graft; Z86.19 Personal history of other infectious and parasitic diseases; Z79.82 Long term (current) use of aspirin; X58.XXXD Exposure to other specified factors, subsequent encounter
CPT/HCPCS: 97597; J7999

== ENCOUNTER 2019-08-08 13:30 | Day surgery (SDC) | payer MEDICAID ==
[2019-08-08] MEDS ORDERED: LIDOcaine 2% 5ml jelly ONE (14:29)
[2019-08-08] MEDS ORDERED: gentamicin 0.1% topical ointment 15gm TP ONE (14:46)
== END 2019-08-08 15:23 | disposition home or self-care (01) ==
LOC: WOUND CARE 13:30
PROVIDERS: ATTEND Nurse Practitioner
DX: E11.621 Type 2 diabetes mellitus with foot ulcer (principal); L97.522 Non-pressure chronic ulcer of other part of left foot with fat layer exposed; E11.622 Type 2 diabetes mellitus with other skin ulcer; L98.492 Non-pressure chronic ulcer of skin of other sites with fat layer exposed; S91.302D Unspecified open wound, left foot, subsequent encounter; I12.9 Hypertensive chronic kidney disease with stage 1 through stage 4 chronic kidney disease, or unspecified chronic kidney disease; E11.22 Type 2 diabetes mellitus with diabetic chronic kidney disease; N18.3 Chronic kidney disease, stage 3 (moderate); E11.40 Type 2 diabetes mellitus with diabetic neuropathy, unspecified; G60.9 Hereditary and idiopathic neuropathy, unspecified; I25.10 Atherosclerotic heart disease of native coronary artery without angina pectoris; L84 Corns and callosities; M10.9 Gout, unspecified; I25.2 Old myocardial infarction; E78.5 Hyperlipidemia, unspecified; F19.10 Other psychoactive substance abuse, uncomplicated; F17.200 Nicotine dependence, unspecified, uncomplicated; Z79.01 Long term (current) use of anticoagulants; Z79.02 Long term (current) use of antithrombotics/antiplatelets; Z79.899 Other long term (current) drug therapy; Z95.5 Presence of coronary angioplasty implant and graft; Z86.19 Personal history of other infectious and parasitic diseases; Z79.82 Long term (current) use of aspirin; X58.XXXD Exposure to other specified factors, subsequent encounter
CPT/HCPCS: 97597

== ENCOUNTER 2019-08-15 09:22 | Day surgery (SDC) | payer MEDICAID ==
[~2019-08-15 09:22] MED LIST changes: +LIDOcaine 2% 5ml jelly ONE
[2019-08-15] MEDS ORDERED: gentamicin 0.1% topical ointment 15gm TP ONE (09:59)
[2019-08-15] MEDS ORDERED: nystatin/triamcinolone cream 15gm TP ONE (09:59)
== END 2019-08-15 10:25 | disposition home or self-care (01) ==
LOC: WOUND CARE 09:22
PROVIDERS: ATTEND Nurse Practitioner
DX: E11.621 Type 2 diabetes mellitus with foot ulcer (principal); L97.522 Non-pressure chronic ulcer of other part of left foot with fat layer exposed; E11.622 Type 2 diabetes mellitus with other skin ulcer; L98.492 Non-pressure chronic ulcer of skin of other sites with fat layer exposed; I12.9 Hypertensive chronic kidney disease with stage 1 through stage 4 chronic kidney disease, or unspecified chronic kidney disease; E11.22 Type 2 diabetes mellitus with diabetic chronic kidney disease; N18.3 Chronic kidney disease, stage 3 (moderate); E11.40 Type 2 diabetes mellitus with diabetic neuropathy, unspecified; G60.9 Hereditary and idiopathic neuropathy, unspecified; I25.10 Atherosclerotic heart disease of native coronary artery without angina pectoris; L84 Corns and callosities; M10.9 Gout, unspecified; I25.2 Old myocardial infarction; E78.5 Hyperlipidemia, unspecified; F19.10 Other psychoactive substance abuse, uncomplicated; F17.200 Nicotine dependence, unspecified, uncomplicated; Z79.01 Long term (current) use of anticoagulants; Z79.02 Long term (current) use of antithrombotics/antiplatelets; Z79.899 Other long term (current) drug therapy; Z95.5 Presence of coronary angioplasty implant and graft; Z86.19 Personal history of other infectious and parasitic diseases; Z79.82 Long term (current) use of aspirin
CPT/HCPCS: 97597; J7999

== ENCOUNTER 2019-08-20 06:05 | Day surgery (SDC) | payer MEDICAID ==
[~2019-08-20] VITALS: Ht 170.2 cm; Wt 94.8 kg
[2019-08-20] VITALS (14 sets, daily range): BP systolic 118–143; BP diastolic 72–100
[~2019-08-20 06:05] MED LIST changes: +CLON0.1T2 PO; +FAMO20TA8 PO; -LEVO750T21 PO; -LIDOcaine 2% 5ml jelly ONE; -MYCOL15CR TOP; -PROP10TA10 PO; +TRAZ-256 PO; +VILA20TA PO; +cefazolin/dext.iso 2gm/100ml 100 ML IV ONE; +famotidine 20mg tablet PO ONE; +ringers solution, lacted 1,000 ML IV SCH; -trintellix
[2019-08-20] MEDS ORDERED: ringers solution, lacted 1,000 ML IV SCH (07:32)
[2019-08-20] MEDS ORDERED: HYDROmorphone inj. 0.5 MG/0.5 ML DISP.SYRIN IV PRN (07:35)
[2019-08-20] MEDS ORDERED: proCHLORperazine 10 MG/2 ml inj IV PRN (07:35)
[2019-08-20] MEDS ORDERED: acetaminophen 1,000mg/100ml IV 100 ML IV PRN (07:35)
[2019-08-20] MEDS ORDERED: ondansetron/PF 4mg/2ml inj IV PRN (07:35)
[2019-08-20] MEDS ORDERED: morphine 4 MG/ML inj SYRINge IV PRN (07:35)
[2019-08-20 07:37] LABS: BASOPHILS % (AUTO) 0.4 % (0-1); EOSINOPHILS # (AUTO) 0.2 X10'3 (0-0.9); EOSINOPHILS % (AUTO) 2.2 % (0-6); LYMPHOCYTES # (AUTO) 2.8 X10'3 (1.1-4.8); LYMPHOCYTES % (AUTO) 35.2 % (21-51); MEAN CORPUSCULAR HEMOGLOBIN 28.3 PG (27.0-31.0); MEAN CORPUSCULAR HGB CONC 33.6 g/dL (33.0-36.5); MEAN CORPUSCULAR VOLUME 84.2 FL (78-98); MEAN PLATELET VOLUME 8.7 FL (7.4-10.4); MONOCYTES # (AUTO) 0.6 X10'3 (0-0.9); MONOCYTES % (AUTO) 7.5 % (2-12); NEUTROPHILS # (AUTO) 4.3 X10'3 (1.8-7.7); NEUTROPHILS % (AUTO) 54.7 % (42-75); PRE OP HEMATOCRIT 39.9 % (35.0-45.0); PRE OP HEMOGLOBIN 13.4 g/dL (12.0-16.0); PRE OP PLATELET COUNT 252 X10'3 (140-440); RED BLOOD COUNT 4.74 X10'6 (4.20-5.60); RED CELL DISTRIBUTION WIDTH 13.1 % (11.5-14.5)
[2019-08-20 07:52] LABS: ALBUMIN 3.6 G/DL (3.4-5.0); ALBUMIN/GLOBULIN RATIO 0.8 (1.1-1.5); ALKALINE PHOSPHATASE 91 IU/L (46-116); BLOOD UREA NITROGEN 10 MG/DL (7-18); BUN/CREATININE RATIO 12.3 (6.6-38.0); CALCIUM 8.9 MG/DL (8.5-10.1); CHLORIDE 106 MMOL/L (99-107); CREATININE 0.81 MG/DL (0.40-0.90); PRE OP ALT 22 U/L (30-65); PRE OP ANION GAP 7 (8-16); PRE OP AST 18 U/L (10-37); PRE OP BILIRUB, TOTAL 0.3 MG/DL (0.0-1.0); PRE OP GLUCOSE 113 MG/DL (70-104); PRE OP POTASSIUM 3.8 MMOL/L (3.4-5.1); PRE OP SODIUM 139 MMOL/L (135-145); TOTAL CARBON DIOXIDE 26.4 MMOL/L (24-32); TOTAL PROTEIN 8.1 G/DL (6.4-8.2); eGFR 77 ML/MIN
[2019-08-20] MEDS ORDERED: midazolam 2 mg/2 ml injection ONE (07:56)
[2019-08-20] MEDS ORDERED: fentaNYL/PF 50MCG/1 ML 2ML syringe ONE (07:56)
[2019-08-20] MEDS ORDERED: sevoflurane 250ml liquid IH ONE (08:15)
[2019-08-20] MEDS ORDERED: propofol inj 20 ML IV ONE (08:30)
[2019-08-20] MEDS ORDERED: LIDOcaine 2% (20mg/ml) 5ml vial ONE (08:30)
[2019-08-20] MEDS ORDERED: ondansetron/PF 4mg/2ml inj ONE (08:38)
[2019-08-20] MEDS ORDERED: dexamethasone sod phosphate 4mg/ml inj. ONE (08:38)
[2019-08-20] MEDS ORDERED: ceFAZolin 1000mg inj IR ONE (08:43)
--- NOTE | 2019-08-20 09:07 | NUR ---
Received from OR via [facility], accompanied by Anesthesiologist DR RYDER and report given by Anesthesiologist. PT DROWSY, DENIES PAIN, ABDOMEN W/SMALL [place] JERALD HERNANDEZ. Addendum: 08/20/19 at 0933 by Lois Escobar RN Amended: Links added.
[2019-08-20] MEDS: HYDROmorphone inj. 0.5 MG/0.5 ML DISP.SYRIN IV PRN ×2 (09:48→09:58)
[2019-08-20] MEDS: morphine 2 MG/ML inj. syringe IV PRN ×2 (10:07→10:17)
[2019-08-20] MEDS ORDERED: HYDROcodone/acetaminophen 10/325mg tab PO ONE (10:20)
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
== END 2019-08-20 11:07 | disposition home or self-care (01) ==
LOC: PAS 06:05
PROVIDERS: ATTEND Surgery
DX: T81.89XA Other complications of procedures, not elsewhere classified, initial encounter (principal); G89.29 Other chronic pain; F32.9 Major depressive disorder, single episode, unspecified; F41.9 Anxiety disorder, unspecified; F12.90 Cannabis use, unspecified, uncomplicated; E66.9 Obesity, unspecified; Z68.32 Body mass index [BMI] 32.0-32.9, adult; Z86.14 Personal history of Methicillin resistant Staphylococcus aureus infection; Z88.8 Allergy status to other drugs, medicaments and biological substances; Z88.0 Allergy status to penicillin; Z79.899 Other long term (current) drug therapy; Z90.49 Acquired absence of other specified parts of digestive tract; Z98.890 Other specified postprocedural states; Z87.891 Personal history of nicotine dependence; Z86.19 Personal history of other infectious and parasitic diseases; Y83.8 Other surgical procedures as the cause of abnormal reaction of the patient, or of later complication, without mention of misadventure at the time of the procedure; Y92.89 Other specified places as the place of occurrence of the external cause
CPT/HCPCS: 13160; 15851; 36415; 80053; 85025; A6266; J0131; J0690; J1100; J1170; J2001; J2250; J2270; J2405; J2704; J3010; J7120; A4618; A6449; A7000

== ENCOUNTER 2019-08-25 13:00 | Outpatient (CLI) | payer MEDICAID ==
[~2019-08-25 13:00] MED LIST changes: +ceFAZolin 1000mg inj ONE; -cefazolin/dext.iso 2gm/100ml 100 ML IV ONE; -famotidine 20mg tablet PO ONE; -ringers solution, lacted 1,000 ML IV SCH
[2019-08-25] MEDS ORDERED: nystatin/triamcinolone cream 15gm TP ONE (13:46)
== END 2019-08-25 14:12 | disposition home or self-care (01) ==
LOC: EDSTATUS 13:00 → WOUND CARE 13:00
PROVIDERS: ATTEND Nurse Practitioner
DX: T81.89XD Other complications of procedures, not elsewhere classified, subsequent encounter (principal); E11.621 Type 2 diabetes mellitus with foot ulcer; L97.522 Non-pressure chronic ulcer of other part of left foot with fat layer exposed; E11.622 Type 2 diabetes mellitus with other skin ulcer; L98.492 Non-pressure chronic ulcer of skin of other sites with fat layer exposed; I12.9 Hypertensive chronic kidney disease with stage 1 through stage 4 chronic kidney disease, or unspecified chronic kidney disease; E11.22 Type 2 diabetes mellitus with diabetic chronic kidney disease; N18.3 Chronic kidney disease, stage 3 (moderate); E11.40 Type 2 diabetes mellitus with diabetic neuropathy, unspecified; G60.9 Hereditary and idiopathic neuropathy, unspecified; I25.10 Atherosclerotic heart disease of native coronary artery without angina pectoris; L84 Corns and callosities; M10.9 Gout, unspecified; I25.2 Old myocardial infarction; E78.5 Hyperlipidemia, unspecified; F19.10 Other psychoactive substance abuse, uncomplicated; F17.200 Nicotine dependence, unspecified, uncomplicated; Z79.01 Long term (current) use of anticoagulants; Z79.02 Long term (current) use of antithrombotics/antiplatelets; Z79.899 Other long term (current) drug therapy; Z95.5 Presence of coronary angioplasty implant and graft; Z86.19 Personal history of other infectious and parasitic diseases; Z79.82 Long term (current) use of aspirin; Y83.8 Other surgical procedures as the cause of abnormal reaction of the patient, or of later complication, without mention of misadventure at the time of the procedure
CPT/HCPCS: 29581; J7999; J0690

== ENCOUNTER 2019-08-28 13:21 | Day surgery (SDC) | payer MEDICAID ==
[~2019-08-28 13:21] MED LIST changes: -ceFAZolin 1000mg inj ONE
[2019-08-28] MEDS ORDERED: LIDOcaine 2% 5ml jelly ONE ×2 (13:42→13:45)
[2019-08-28] MEDS ORDERED: nystatin/triamcinolone cream 15gm TP ONE (14:45)
== END 2019-08-28 15:00 | disposition home or self-care (01) ==
LOC: WOUND CARE 13:21
PROVIDERS: ATTEND Nurse Practitioner
DX: T81.89XD Other complications of procedures, not elsewhere classified, subsequent encounter (principal); E11.621 Type 2 diabetes mellitus with foot ulcer; L97.522 Non-pressure chronic ulcer of other part of left foot with fat layer exposed; E11.622 Type 2 diabetes mellitus with other skin ulcer; L98.492 Non-pressure chronic ulcer of skin of other sites with fat layer exposed; I12.9 Hypertensive chronic kidney disease with stage 1 through stage 4 chronic kidney disease, or unspecified chronic kidney disease; E11.22 Type 2 diabetes mellitus with diabetic chronic kidney disease; N18.3 Chronic kidney disease, stage 3 (moderate); E11.40 Type 2 diabetes mellitus with diabetic neuropathy, unspecified; G60.9 Hereditary and idiopathic neuropathy, unspecified; I25.10 Atherosclerotic heart disease of native coronary artery without angina pectoris; L84 Corns and callosities; M10.9 Gout, unspecified; I25.2 Old myocardial infarction; E78.5 Hyperlipidemia, unspecified; F19.10 Other psychoactive substance abuse, uncomplicated; F17.200 Nicotine dependence, unspecified, uncomplicated; Z79.01 Long term (current) use of anticoagulants; Z79.02 Long term (current) use of antithrombotics/antiplatelets; Z79.899 Other long term (current) drug therapy; Z95.5 Presence of coronary angioplasty implant and graft; Z86.19 Personal history of other infectious and parasitic diseases; Z79.82 Long term (current) use of aspirin; Y83.8 Other surgical procedures as the cause of abnormal reaction of the patient, or of later complication, without mention of misadventure at the time of the procedure
CPT/HCPCS: 97597; J7999

== ENCOUNTER 2019-09-02 13:30 | Day surgery (SDC) | payer MEDICAID ==
[2019-09-02] MEDS ORDERED: LIDOcaine 2% 5ml jelly ONE (13:51)
[2019-09-02] MEDS ORDERED: nystatin/triamcinolone cream 15gm TP ONE (14:19)
== END 2019-09-02 14:45 | disposition home or self-care (01) ==
LOC: WOUND CARE 13:30
PROVIDERS: ATTEND Nurse Practitioner Family
DX: T81.89XD Other complications of procedures, not elsewhere classified, subsequent encounter (principal); E11.621 Type 2 diabetes mellitus with foot ulcer; L97.522 Non-pressure chronic ulcer of other part of left foot with fat layer exposed; E11.622 Type 2 diabetes mellitus with other skin ulcer; L98.492 Non-pressure chronic ulcer of skin of other sites with fat layer exposed; I12.9 Hypertensive chronic kidney disease with stage 1 through stage 4 chronic kidney disease, or unspecified chronic kidney disease; E11.22 Type 2 diabetes mellitus with diabetic chronic kidney disease; N18.3 Chronic kidney disease, stage 3 (moderate); E11.40 Type 2 diabetes mellitus with diabetic neuropathy, unspecified; G60.9 Hereditary and idiopathic neuropathy, unspecified; I25.10 Atherosclerotic heart disease of native coronary artery without angina pectoris; L84 Corns and callosities; M10.9 Gout, unspecified; I25.2 Old myocardial infarction; E78.5 Hyperlipidemia, unspecified; F19.10 Other psychoactive substance abuse, uncomplicated; F17.200 Nicotine dependence, unspecified, uncomplicated; Z79.01 Long term (current) use of anticoagulants; Z79.02 Long term (current) use of antithrombotics/antiplatelets; Z79.899 Other long term (current) drug therapy; Z95.5 Presence of coronary angioplasty implant and graft; Z86.19 Personal history of other infectious and parasitic diseases; Z79.82 Long term (current) use of aspirin; Y83.8 Other surgical procedures as the cause of abnormal reaction of the patient, or of later complication, without mention of misadventure at the time of the procedure
CPT/HCPCS: 97597; J7999

== ENCOUNTER 2019-09-05 13:35 | Day surgery (SDC) | payer MEDICAID ==
[2019-09-05] MEDS ORDERED: LIDOcaine 2% 5ml jelly ONE ×2 (13:52→14:07)
[2019-09-05] MEDS ORDERED: nystatin/triamcinolone cream 15gm TP ONE (14:14)
== END 2019-09-05 14:28 | disposition home or self-care (01) ==
LOC: WOUND CARE 13:35
PROVIDERS: ATTEND Nurse Practitioner
DX: T81.89XD Other complications of procedures, not elsewhere classified, subsequent encounter (principal); E11.621 Type 2 diabetes mellitus with foot ulcer; L97.522 Non-pressure chronic ulcer of other part of left foot with fat layer exposed; E11.622 Type 2 diabetes mellitus with other skin ulcer; L98.492 Non-pressure chronic ulcer of skin of other sites with fat layer exposed; I12.9 Hypertensive chronic kidney disease with stage 1 through stage 4 chronic kidney disease, or unspecified chronic kidney disease; E11.22 Type 2 diabetes mellitus with diabetic chronic kidney disease; N18.3 Chronic kidney disease, stage 3 (moderate); E11.40 Type 2 diabetes mellitus with diabetic neuropathy, unspecified; G60.9 Hereditary and idiopathic neuropathy, unspecified; I25.10 Atherosclerotic heart disease of native coronary artery without angina pectoris; L84 Corns and callosities; M10.9 Gout, unspecified; I25.2 Old myocardial infarction; E78.5 Hyperlipidemia, unspecified; F19.10 Other psychoactive substance abuse, uncomplicated; F17.200 Nicotine dependence, unspecified, uncomplicated; Z79.01 Long term (current) use of anticoagulants; Z79.02 Long term (current) use of antithrombotics/antiplatelets; Z79.899 Other long term (current) drug therapy; Z95.5 Presence of coronary angioplasty implant and graft; Z86.19 Personal history of other infectious and parasitic diseases; Z79.82 Long term (current) use of aspirin; Y83.8 Other surgical procedures as the cause of abnormal reaction of the patient, or of later complication, without mention of misadventure at the time of the procedure
CPT/HCPCS: 97597; J7999

== ENCOUNTER 2019-09-11 11:35 | Day surgery (SDC) | payer MEDICAID ==
[2019-09-11] MEDS ORDERED: LIDOcaine 2% 5ml jelly ONE (11:50)
[2019-09-11] MEDS ORDERED: nystatin/triamcinolone cream 15gm TP ONE (11:54)
== END 2019-09-11 12:40 | disposition home or self-care (01) ==
LOC: WOUND CARE 11:35
PROVIDERS: ATTEND Nurse Practitioner Family
DX: T81.89XD Other complications of procedures, not elsewhere classified, subsequent encounter (principal); E11.622 Type 2 diabetes mellitus with other skin ulcer; L98.492 Non-pressure chronic ulcer of skin of other sites with fat layer exposed; E11.621 Type 2 diabetes mellitus with foot ulcer; L97.522 Non-pressure chronic ulcer of other part of left foot with fat layer exposed; L84 Corns and callosities; I12.9 Hypertensive chronic kidney disease with stage 1 through stage 4 chronic kidney disease, or unspecified chronic kidney disease; E11.22 Type 2 diabetes mellitus with diabetic chronic kidney disease; N18.3 Chronic kidney disease, stage 3 (moderate); E11.40 Type 2 diabetes mellitus with diabetic neuropathy, unspecified; G60.9 Hereditary and idiopathic neuropathy, unspecified; I25.10 Atherosclerotic heart disease of native coronary artery without angina pectoris; M10.9 Gout, unspecified; I25.2 Old myocardial infarction; E78.5 Hyperlipidemia, unspecified; F19.10 Other psychoactive substance abuse, uncomplicated; F17.200 Nicotine dependence, unspecified, uncomplicated; Z79.01 Long term (current) use of anticoagulants; Z79.02 Long term (current) use of antithrombotics/antiplatelets; Z79.899 Other long term (current) drug therapy; Z95.5 Presence of coronary angioplasty implant and graft; Z86.19 Personal history of other infectious and parasitic diseases; Z79.82 Long term (current) use of aspirin; Y83.8 Other surgical procedures as the cause of abnormal reaction of the patient, or of later complication, without mention of misadventure at the time of the procedure
CPT/HCPCS: 97597; J7999

== ENCOUNTER 2019-09-18 14:15 | Day surgery (SDC) | payer MEDICAID ==
[2019-09-18] MEDS ORDERED: LIDOcaine 2% 5ml jelly ONE (14:36)
== END 2019-09-18 14:56 | disposition home or self-care (01) ==
LOC: WOUND CARE 14:15
PROVIDERS: ATTEND Nurse Practitioner
DX: T81.89XD Other complications of procedures, not elsewhere classified, subsequent encounter (principal); E11.622 Type 2 diabetes mellitus with other skin ulcer; L98.492 Non-pressure chronic ulcer of skin of other sites with fat layer exposed; E11.621 Type 2 diabetes mellitus with foot ulcer; L97.522 Non-pressure chronic ulcer of other part of left foot with fat layer exposed; L84 Corns and callosities; I12.9 Hypertensive chronic kidney disease with stage 1 through stage 4 chronic kidney disease, or unspecified chronic kidney disease; E11.22 Type 2 diabetes mellitus with diabetic chronic kidney disease; N18.3 Chronic kidney disease, stage 3 (moderate); E11.40 Type 2 diabetes mellitus with diabetic neuropathy, unspecified; G60.9 Hereditary and idiopathic neuropathy, unspecified; I25.10 Atherosclerotic heart disease of native coronary artery without angina pectoris; M10.9 Gout, unspecified; I25.2 Old myocardial infarction; E78.5 Hyperlipidemia, unspecified; F19.10 Other psychoactive substance abuse, uncomplicated; F17.200 Nicotine dependence, unspecified, uncomplicated; Z79.01 Long term (current) use of anticoagulants; Z79.02 Long term (current) use of antithrombotics/antiplatelets; Z79.899 Other long term (current) drug therapy; Z95.5 Presence of coronary angioplasty implant and graft; Z86.19 Personal history of other infectious and parasitic diseases; Z79.82 Long term (current) use of aspirin; Y83.8 Other surgical procedures as the cause of abnormal reaction of the patient, or of later complication, without mention of misadventure at the time of the procedure
CPT/HCPCS: 97597

== ENCOUNTER 2019-09-25 14:00 | Day surgery (SDC) | payer MEDICAID ==
[~2019-09-25 14:00] MED LIST changes: +LIDOcaine 2% 5ml jelly ONE
== END 2019-09-25 14:20 | disposition home or self-care (01) ==
LOC: WOUND CARE 14:00
PROVIDERS: ATTEND Nurse Practitioner
DX: T81.89XD Other complications of procedures, not elsewhere classified, subsequent encounter (principal); E11.622 Type 2 diabetes mellitus with other skin ulcer; L98.492 Non-pressure chronic ulcer of skin of other sites with fat layer exposed; E11.621 Type 2 diabetes mellitus with foot ulcer; L97.522 Non-pressure chronic ulcer of other part of left foot with fat layer exposed; L84 Corns and callosities; I12.9 Hypertensive chronic kidney disease with stage 1 through stage 4 chronic kidney disease, or unspecified chronic kidney disease; E11.22 Type 2 diabetes mellitus with diabetic chronic kidney disease; N18.3 Chronic kidney disease, stage 3 (moderate); E11.40 Type 2 diabetes mellitus with diabetic neuropathy, unspecified; G60.9 Hereditary and idiopathic neuropathy, unspecified; I25.10 Atherosclerotic heart disease of native coronary artery without angina pectoris; M10.9 Gout, unspecified; I25.2 Old myocardial infarction; E78.5 Hyperlipidemia, unspecified; F19.10 Other psychoactive substance abuse, uncomplicated; F17.200 Nicotine dependence, unspecified, uncomplicated; Z79.01 Long term (current) use of anticoagulants; Z79.02 Long term (current) use of antithrombotics/antiplatelets; Z79.899 Other long term (current) drug therapy; Z95.5 Presence of coronary angioplasty implant and graft; Z86.19 Personal history of other infectious and parasitic diseases; Z79.82 Long term (current) use of aspirin; Y83.8 Other surgical procedures as the cause of abnormal reaction of the patient, or of later complication, without mention of misadventure at the time of the procedure
CPT/HCPCS: 97597

== ENCOUNTER 2019-10-02 13:10 | Day surgery (SDC) | payer MEDICAID ==
[~2019-10-02 13:10] MED LIST changes: -LIDOcaine 2% 5ml jelly ONE
[2019-10-02] MEDS ORDERED: LIDOcaine 2% 5ml jelly ONE (13:39)
[2019-10-02] MEDS ORDERED: nystatin/triamcinolone cream 15gm TP ONE (14:04)
== END 2019-10-02 14:26 | disposition home or self-care (01) ==
LOC: WOUND CARE 13:10
PROVIDERS: ATTEND Nurse Practitioner
DX: E11.622 Type 2 diabetes mellitus with other skin ulcer (principal); L98.492 Non-pressure chronic ulcer of skin of other sites with fat layer exposed; E11.621 Type 2 diabetes mellitus with foot ulcer; L97.522 Non-pressure chronic ulcer of other part of left foot with fat layer exposed; L84 Corns and callosities; I12.9 Hypertensive chronic kidney disease with stage 1 through stage 4 chronic kidney disease, or unspecified chronic kidney disease; E11.22 Type 2 diabetes mellitus with diabetic chronic kidney disease; N18.3 Chronic kidney disease, stage 3 (moderate); E11.40 Type 2 diabetes mellitus with diabetic neuropathy, unspecified; G60.9 Hereditary and idiopathic neuropathy, unspecified; I25.10 Atherosclerotic heart disease of native coronary artery without angina pectoris; M10.9 Gout, unspecified; I25.2 Old myocardial infarction; E78.5 Hyperlipidemia, unspecified; F19.10 Other psychoactive substance abuse, uncomplicated; F17.200 Nicotine dependence, unspecified, uncomplicated; Z79.01 Long term (current) use of anticoagulants; Z79.02 Long term (current) use of antithrombotics/antiplatelets; Z79.899 Other long term (current) drug therapy; Z95.5 Presence of coronary angioplasty implant and graft; Z86.19 Personal history of other infectious and parasitic diseases; Z79.82 Long term (current) use of aspirin
CPT/HCPCS: 11104; J7999

== ENCOUNTER 2019-10-21 12:30 | Day surgery (SDC) | payer MEDICAID ==
[2019-10-21] MEDS ORDERED: LIDOcaine 1% w/epiNEPHrine 1:200,000 30ml vial ONE (12:43)
[2019-10-21] MEDS ORDERED: LIDOcaine 2% 5ml jelly ONE (12:44)
== END 2019-10-21 12:45 | disposition home or self-care (01) ==
LOC: WOUND CARE 12:30
PROVIDERS: ATTEND Nurse Practitioner
DX: T81.89XD Other complications of procedures, not elsewhere classified, subsequent encounter (principal); E11.621 Type 2 diabetes mellitus with foot ulcer; I83.225 Varicose veins of left lower extremity with both ulcer other part of foot and inflammation; L97.522 Non-pressure chronic ulcer of other part of left foot with fat layer exposed; E11.622 Type 2 diabetes mellitus with other skin ulcer; L98.492 Non-pressure chronic ulcer of skin of other sites with fat layer exposed; L84 Corns and callosities; I12.9 Hypertensive chronic kidney disease with stage 1 through stage 4 chronic kidney disease, or unspecified chronic kidney disease; E11.22 Type 2 diabetes mellitus with diabetic chronic kidney disease; N18.3 Chronic kidney disease, stage 3 (moderate); E11.40 Type 2 diabetes mellitus with diabetic neuropathy, unspecified; G60.9 Hereditary and idiopathic neuropathy, unspecified; I25.10 Atherosclerotic heart disease of native coronary artery without angina pectoris; M10.9 Gout, unspecified; I25.2 Old myocardial infarction; E78.5 Hyperlipidemia, unspecified; F19.10 Other psychoactive substance abuse, uncomplicated; F17.200 Nicotine dependence, unspecified, uncomplicated; Z79.01 Long term (current) use of anticoagulants; Z79.02 Long term (current) use of antithrombotics/antiplatelets; Z79.899 Other long term (current) drug therapy; Z95.5 Presence of coronary angioplasty implant and graft; Z86.19 Personal history of other infectious and parasitic diseases; Z79.82 Long term (current) use of aspirin; Y83.8 Other surgical procedures as the cause of abnormal reaction of the patient, or of later complication, without mention of misadventure at the time of the procedure
CPT/HCPCS: 97597

== ENCOUNTER 2019-10-27 14:05 | Day surgery (SDC) | payer MEDICAID ==
[2019-10-27] MEDS ORDERED: LIDOcaine 2% 5ml jelly ONE (14:22)
[2019-10-27] MEDS ORDERED: nystatin/triamcinolone cream 15gm TP ONE (14:45)
[2019-10-27] MEDS ORDERED: hydrocortisone 1% cream 28gm TP ONE (14:46)
== END 2019-10-27 15:00 | disposition home or self-care (01) ==
LOC: WOUND CARE 14:05
PROVIDERS: ATTEND Nurse Practitioner
DX: T81.89XD Other complications of procedures, not elsewhere classified, subsequent encounter (principal); E11.621 Type 2 diabetes mellitus with foot ulcer; I83.225 Varicose veins of left lower extremity with both ulcer other part of foot and inflammation; L97.522 Non-pressure chronic ulcer of other part of left foot with fat layer exposed; E11.622 Type 2 diabetes mellitus with other skin ulcer; L98.492 Non-pressure chronic ulcer of skin of other sites with fat layer exposed; L84 Corns and callosities; I12.9 Hypertensive chronic kidney disease with stage 1 through stage 4 chronic kidney disease, or unspecified chronic kidney disease; E11.22 Type 2 diabetes mellitus with diabetic chronic kidney disease; N18.3 Chronic kidney disease, stage 3 (moderate); E11.40 Type 2 diabetes mellitus with diabetic neuropathy, unspecified; G60.9 Hereditary and idiopathic neuropathy, unspecified; I25.10 Atherosclerotic heart disease of native coronary artery without angina pectoris; M10.9 Gout, unspecified; I25.2 Old myocardial infarction; E78.5 Hyperlipidemia, unspecified; F19.10 Other psychoactive substance abuse, uncomplicated; F17.200 Nicotine dependence, unspecified, uncomplicated; Z79.01 Long term (current) use of anticoagulants; Z79.02 Long term (current) use of antithrombotics/antiplatelets; Z79.899 Other long term (current) drug therapy; Z95.5 Presence of coronary angioplasty implant and graft; Z86.19 Personal history of other infectious and parasitic diseases; Z79.82 Long term (current) use of aspirin; Y83.8 Other surgical procedures as the cause of abnormal reaction of the patient, or of later complication, without mention of misadventure at the time of the procedure
CPT/HCPCS: 97597; J7999

== ENCOUNTER 2019-11-01 10:07 | Emergency (ER) | payer MEDICAID ==
[~2019-11-01] VITALS: Ht 170.2 cm; Wt 97.3 kg
[2019-11-01] MEDS ORDERED: metoclopramide 5 mg/ml inj IV ONE (10:40)
[2019-11-01] MEDS ORDERED: normal saline 1000ML IV soln IVB ONE (10:40)
[2019-11-01] MEDS ORDERED: morphine 2 MG/ML inj. syringe IV ONE (10:40)
[2019-11-01 11:11] LABS: BASOPHILS # (AUTO) 0.1 X10'3 (0-0.2); BASOPHILS % (AUTO) 0.9 % (0-1); EOSINOPHILS # (AUTO) 0.1 X10'3 (0-0.9); EOSINOPHILS % (AUTO) 0.5 % (0-6); HEMATOCRIT 40.5 % (35.0-45.0); HEMOGLOBIN 13.7 g/dl (12.0-16.0); LYMPHOCYTES # (AUTO) 2.1 X10'3 (1.1-4.8); LYMPHOCYTES % (AUTO) 15.1 % (21-51); MEAN CORPUSCULAR HEMOGLOBIN 28.9 PG (27.0-31.0); MEAN CORPUSCULAR HGB CONC 33.9 g/dL (33.0-36.5); MEAN CORPUSCULAR VOLUME 85.3 FL (78-98); MEAN PLATELET VOLUME 8.7 FL (7.4-10.4); MONOCYTES # (AUTO) 0.6 X10'3 (0-0.9); MONOCYTES % (AUTO) 4.1 % (2-12); NEUTROPHILS # (AUTO) 10.9 X10'3 (1.8-7.7); NEUTROPHILS % (AUTO) 79.4 % (42-75); PLATELET COUNT 276 X10'3 (140-440); RED BLOOD COUNT 4.74 X10'6 (4.20-5.60); RED CELL DISTRIBUTION WIDTH 14.4 % (11.5-14.5); WHITE BLOOD COUNT 13.8 X10'3 (4.5-11.0)
[2019-11-01 11:24] LABS: ALANINE AMINOTRANSFERASE 29 U/L (12-78); ALBUMIN 3.8 G/DL (3.4-5.0); ALBUMIN/GLOBULIN RATIO 0.7 (1.1-1.5); ALKALINE PHOSPHATASE 98 IU/L (46-116); ANION GAP 11 (8-16); BILIRUBIN,TOTAL 0.5 MG/DL (0.1-1.0); BLOOD UREA NITROGEN 12 MG/DL (7-18); BUN/CREATININE RATIO 12.2 (6.6-38.0); CALCIUM 9.1 MG/DL (8.5-10.1); CHLORIDE 102 MMOL/L (99-107); CREATININE 0.98 MG/DL (0.40-0.90); GLUCOSE 124 MG/DL (70-104); LIPASE 58 U/L (73-393); SODIUM 140 MMOL/L (135-145); TOTAL CARBON DIOXIDE 26.9 MMOL/L (24-32); TOTAL PROTEIN 9.5 G/DL (6.4-8.2); eGFR 62 ML/MIN
[2019-11-01 11:32] LABS: POTASSIUM 3.6 MMOL/L (3.5-5.1)
[2019-11-01 11:39] LABS: ASPARTATE AMINO TRANSFERASE 29 U/L (10-37)
--- NOTE | 2019-11-01 11:44 | NUR ---
patient up to the bathroom.
[2019-11-01] MEDS ORDERED: LORazepam 2 mg/ml vial IV ONE (12:10)
[2019-11-01 13:00] LABS: CLARITY,URINE SLIGHTLY CLOUDY (Clear); COLOR,URINE YELLOW (Yellow); GLUCOSE, URINE NEGATIVE (Neg); KETONES,URINE NEGATIVE (Neg); LEUKOCYTE ESTERASE ,URINE NEGATIVE (Neg); NITRITES, URINE NEGATIVE (Neg); OCCULT BLOOD,URINE NEGATIVE (Neg); PH,URINE 7.5 (4.8-8.0); PROTEIN,URINE TRACE mg/dl (Neg); UA COLLECTION TYPE CLN CATCH MIDSTREAM; URINE HCG NEGATIVE (NEG)
[2019-11-01 13:07] LABS: BACTERIA,URINE NONE SEEN /HPF (Neg); MUCUS STRANDS FEW /LPF (Neg); SQUAMOUS EPITHELIAL CELL,UR MANY /LPF (FEW); WBC,URINE NONE SEEN /HPF (0-4)
[2019-11-01] MEDS ORDERED: ONDA4TAB6 PO (14:28)
[2019-11-01 14:30] VITALS: BP 112/62
== END 2019-11-01 14:42 | disposition home or self-care (01) ==
LOC: ER 10:07
DX: A05.9 Bacterial foodborne intoxication, unspecified (principal); R11.2 Nausea with vomiting, unspecified; R19.7 Diarrhea, unspecified; R10.9 Unspecified abdominal pain; G89.29 Other chronic pain; F41.9 Anxiety disorder, unspecified; F32.9 Major depressive disorder, single episode, unspecified; Z86.69 Personal history of other diseases of the nervous system and sense organs; Z86.19 Personal history of other infectious and parasitic diseases; Z86.718 Personal history of other venous thrombosis and embolism; Z86.14 Personal history of Methicillin resistant Staphylococcus aureus infection; Z90.49 Acquired absence of other specified parts of digestive tract; Z98.890 Other specified postprocedural states; Z72.89 Other problems related to lifestyle; Z88.8 Allergy status to other drugs, medicaments and biological substances; Z88.1 Allergy status to other antibiotic agents; Z79.899 Other long term (current) drug therapy
CPT/HCPCS: 36415; 80053; 81001; 81025; 83690; 85025; 96361; 96374; 96375; 99285; J2060; J2270; J2765; J7030

== ENCOUNTER 2019-11-03 13:22 | Day surgery (SDC) | payer MEDICAID ==
[~2019-11-03 13:22] MED LIST changes: +ONDA4TAB6 PO
[2019-11-03] MEDS ORDERED: LIDOcaine 2% 5ml jelly ONE (13:34)
[2019-11-03] MEDS ORDERED: hydrocortisone 1% cream 28gm TP ONE (13:58)
[2019-11-03] MEDS ORDERED: nystatin/triamcinolone cream 15gm TP ONE (13:58)
== END 2019-11-03 15:27 | disposition home or self-care (01) ==
LOC: WOUND CARE 13:22
PROVIDERS: ATTEND Nurse Practitioner Family
DX: T81.89XD Other complications of procedures, not elsewhere classified, subsequent encounter (principal); E11.621 Type 2 diabetes mellitus with foot ulcer; I83.225 Varicose veins of left lower extremity with both ulcer other part of foot and inflammation; L97.522 Non-pressure chronic ulcer of other part of left foot with fat layer exposed; E11.622 Type 2 diabetes mellitus with other skin ulcer; L98.492 Non-pressure chronic ulcer of skin of other sites with fat layer exposed; L84 Corns and callosities; I12.9 Hypertensive chronic kidney disease with stage 1 through stage 4 chronic kidney disease, or unspecified chronic kidney disease; E11.22 Type 2 diabetes mellitus with diabetic chronic kidney disease; N18.3 Chronic kidney disease, stage 3 (moderate); E11.40 Type 2 diabetes mellitus with diabetic neuropathy, unspecified; G60.9 Hereditary and idiopathic neuropathy, unspecified; I25.10 Atherosclerotic heart disease of native coronary artery without angina pectoris; M10.9 Gout, unspecified; I25.2 Old myocardial infarction; E78.5 Hyperlipidemia, unspecified; F19.10 Other psychoactive substance abuse, uncomplicated; F17.200 Nicotine dependence, unspecified, uncomplicated; Z79.01 Long term (current) use of anticoagulants; Z79.02 Long term (current) use of antithrombotics/antiplatelets; Z79.899 Other long term (current) drug therapy; Z95.5 Presence of coronary angioplasty implant and graft; Z86.19 Personal history of other infectious and parasitic diseases; Z79.82 Long term (current) use of aspirin; Y83.8 Other surgical procedures as the cause of abnormal reaction of the patient, or of later complication, without mention of misadventure at the time of the procedure
CPT/HCPCS: 97597; J7999

== ENCOUNTER 2019-11-06 13:00 | Day surgery (SDC) | payer MEDICAID ==
[2019-11-07] MEDS ORDERED: QUET300T19 PO (14:12)
[2019-11-07] MEDS ORDERED: IBUP-1986 PO (14:12)
[2019-11-07] MEDS ORDERED: TIZA4TAB5 PO (14:12)
== END 2019-11-06 14:15 | disposition home or self-care (01) ==
LOC: WOUND CARE 13:00
PROVIDERS: ATTEND Nurse Practitioner
DX: T81.89XD Other complications of procedures, not elsewhere classified, subsequent encounter (principal); E11.621 Type 2 diabetes mellitus with foot ulcer; I83.225 Varicose veins of left lower extremity with both ulcer other part of foot and inflammation; L97.522 Non-pressure chronic ulcer of other part of left foot with fat layer exposed; E11.622 Type 2 diabetes mellitus with other skin ulcer; L98.492 Non-pressure chronic ulcer of skin of other sites with fat layer exposed; L84 Corns and callosities; I12.9 Hypertensive chronic kidney disease with stage 1 through stage 4 chronic kidney disease, or unspecified chronic kidney disease; E11.22 Type 2 diabetes mellitus with diabetic chronic kidney disease; N18.3 Chronic kidney disease, stage 3 (moderate); E11.40 Type 2 diabetes mellitus with diabetic neuropathy, unspecified; G60.9 Hereditary and idiopathic neuropathy, unspecified; I25.10 Atherosclerotic heart disease of native coronary artery without angina pectoris; M10.9 Gout, unspecified; I25.2 Old myocardial infarction; E78.5 Hyperlipidemia, unspecified; G89.29 Other chronic pain; F19.10 Other psychoactive substance abuse, uncomplicated; F17.200 Nicotine dependence, unspecified, uncomplicated; F32.9 Major depressive disorder, single episode, unspecified; F41.9 Anxiety disorder, unspecified; Z79.01 Long term (current) use of anticoagulants; Z79.02 Long term (current) use of antithrombotics/antiplatelets; Z79.899 Other long term (current) drug therapy; Z95.5 Presence of coronary angioplasty implant and graft; Z86.19 Personal history of other infectious and parasitic diseases; Z79.82 Long term (current) use of aspirin; Z86.718 Personal history of other venous thrombosis and embolism; Z86.14 Personal history of Methicillin resistant Staphylococcus aureus infection; Z98.890 Other specified postprocedural states; Y83.8 Other surgical procedures as the cause of abnormal reaction of the patient, or of later complication, without mention of misadventure at the time of the procedure
CPT/HCPCS: 36415; 93005; 97597; G0463; U0003

== ENCOUNTER 2019-11-14 13:20 | Day surgery (SDC) | payer MEDICAID ==
[~2019-11-14 13:20] MED LIST changes: +IBUP-1986 PO; -ONDA4TAB6 PO; -QUET-1 PO; +QUET300T19 PO; -TIZA4TAB11 PO; +TIZA4TAB5 PO
[2019-11-14] MEDS ORDERED: LIDOcaine 2% 5ml jelly ONE (13:38)
[2019-11-14] MEDS ORDERED: hydrocortisone 1% cream 28gm TP ONE (13:50)
[2019-11-14] MEDS ORDERED: nystatin/triamcinolone cream 15gm TP ONE (13:51)
== END 2019-11-14 14:14 | disposition home or self-care (01) ==
LOC: WOUND CARE 13:20
PROVIDERS: ATTEND Nurse Practitioner
DX: T81.89XD Other complications of procedures, not elsewhere classified, subsequent encounter (principal); E11.621 Type 2 diabetes mellitus with foot ulcer; I83.225 Varicose veins of left lower extremity with both ulcer other part of foot and inflammation; L97.522 Non-pressure chronic ulcer of other part of left foot with fat layer exposed; E11.622 Type 2 diabetes mellitus with other skin ulcer; L98.492 Non-pressure chronic ulcer of skin of other sites with fat layer exposed; L84 Corns and callosities; I12.9 Hypertensive chronic kidney disease with stage 1 through stage 4 chronic kidney disease, or unspecified chronic kidney disease; E11.22 Type 2 diabetes mellitus with diabetic chronic kidney disease; N18.3 Chronic kidney disease, stage 3 (moderate); E11.40 Type 2 diabetes mellitus with diabetic neuropathy, unspecified; G60.9 Hereditary and idiopathic neuropathy, unspecified; I25.10 Atherosclerotic heart disease of native coronary artery without angina pectoris; M10.9 Gout, unspecified; I25.2 Old myocardial infarction; E78.5 Hyperlipidemia, unspecified; G89.29 Other chronic pain; F19.10 Other psychoactive substance abuse, uncomplicated; F17.200 Nicotine dependence, unspecified, uncomplicated; F32.9 Major depressive disorder, single episode, unspecified; F41.9 Anxiety disorder, unspecified; Z79.01 Long term (current) use of anticoagulants; Z79.02 Long term (current) use of antithrombotics/antiplatelets; Z79.899 Other long term (current) drug therapy; Z95.5 Presence of coronary angioplasty implant and graft; Z86.19 Personal history of other infectious and parasitic diseases; Z79.82 Long term (current) use of aspirin; Z86.718 Personal history of other venous thrombosis and embolism; Z86.14 Personal history of Methicillin resistant Staphylococcus aureus infection; Z98.890 Other specified postprocedural states; Y83.8 Other surgical procedures as the cause of abnormal reaction of the patient, or of later complication, without mention of misadventure at the time of the procedure
CPT/HCPCS: 97597; J7999

== ENCOUNTER 2019-11-18 13:00 | Day surgery (SDC) | payer MEDICAID ==
[2019-11-18] MEDS ORDERED: LIDOcaine 2% 5ml jelly ONE (13:19)
[2019-11-18] MEDS ORDERED: hydrocortisone 1% cream 28gm TP ONE (13:29)
== END 2019-11-18 13:48 | disposition home or self-care (01) ==
LOC: WOUND CARE 13:00
PROVIDERS: ATTEND Nurse Practitioner
DX: T81.89XD Other complications of procedures, not elsewhere classified, subsequent encounter (principal); E11.621 Type 2 diabetes mellitus with foot ulcer; I83.225 Varicose veins of left lower extremity with both ulcer other part of foot and inflammation; L97.522 Non-pressure chronic ulcer of other part of left foot with fat layer exposed; E11.622 Type 2 diabetes mellitus with other skin ulcer; L98.492 Non-pressure chronic ulcer of skin of other sites with fat layer exposed; L84 Corns and callosities; I12.9 Hypertensive chronic kidney disease with stage 1 through stage 4 chronic kidney disease, or unspecified chronic kidney disease; E11.22 Type 2 diabetes mellitus with diabetic chronic kidney disease; N18.3 Chronic kidney disease, stage 3 (moderate); E11.40 Type 2 diabetes mellitus with diabetic neuropathy, unspecified; G60.9 Hereditary and idiopathic neuropathy, unspecified; I25.10 Atherosclerotic heart disease of native coronary artery without angina pectoris; M10.9 Gout, unspecified; I25.2 Old myocardial infarction; E78.5 Hyperlipidemia, unspecified; G89.29 Other chronic pain; F19.10 Other psychoactive substance abuse, uncomplicated; F17.200 Nicotine dependence, unspecified, uncomplicated; F32.9 Major depressive disorder, single episode, unspecified; F41.9 Anxiety disorder, unspecified; Z79.01 Long term (current) use of anticoagulants; Z79.02 Long term (current) use of antithrombotics/antiplatelets; Z79.899 Other long term (current) drug therapy; Z95.5 Presence of coronary angioplasty implant and graft; Z86.19 Personal history of other infectious and parasitic diseases; Z79.82 Long term (current) use of aspirin; Z86.718 Personal history of other venous thrombosis and embolism; Z86.14 Personal history of Methicillin resistant Staphylococcus aureus infection; Z98.890 Other specified postprocedural states; Y83.8 Other surgical procedures as the cause of abnormal reaction of the patient, or of later complication, without mention of misadventure at the time of the procedure
CPT/HCPCS: 97597

== ENCOUNTER 2019-11-20 13:00 | Day surgery (SDC) | payer MEDICAID ==
[2019-11-20] MEDS ORDERED: LIDOcaine 2% 5ml jelly ONE (13:07)
[2019-11-20 13:35] LABS: BASOPHILS # (AUTO) 0.1 X10'3 (0-0.2); BASOPHILS % (AUTO) 0.8 % (0-1); EOSINOPHILS # (AUTO) 0.2 X10'3 (0-0.9); EOSINOPHILS % (AUTO) 2.3 % (0-6); HEMATOCRIT 39.4 % (35.0-45.0); HEMOGLOBIN 13.5 g/dl (12.0-16.0); LYMPHOCYTES # (AUTO) 3.1 X10'3 (1.1-4.8); LYMPHOCYTES % (AUTO) 35.9 % (21-51); MEAN CORPUSCULAR HEMOGLOBIN 29.5 PG (27.0-31.0); MEAN CORPUSCULAR HGB CONC 34.2 g/dL (33.0-36.5); MEAN CORPUSCULAR VOLUME 86.2 FL (78-98); MEAN PLATELET VOLUME 8.7 FL (7.4-10.4); MONOCYTES # (AUTO) 0.6 X10'3 (0-0.9); MONOCYTES % (AUTO) 7.2 % (2-12); NEUTROPHILS # (AUTO) 4.7 X10'3 (1.8-7.7); NEUTROPHILS % (AUTO) 53.8 % (42-75); PLATELET COUNT 275 X10'3 (140-440); RED BLOOD COUNT 4.57 X10'6 (4.20-5.60); RED CELL DISTRIBUTION WIDTH 14.2 % (11.5-14.5); WHITE BLOOD COUNT 8.7 X10'3 (4.5-11.0)
[2019-11-20 13:47] LABS: ALANINE AMINOTRANSFERASE 18 U/L (12-78); ALBUMIN 3.4 G/DL (3.4-5.0); ALBUMIN/GLOBULIN RATIO 0.7 (1.1-1.5); ALKALINE PHOSPHATASE 90 IU/L (46-116); ANION GAP 11 (8-16); ASPARTATE AMINO TRANSFERASE 17 U/L (10-37); BILIRUBIN,TOTAL 0.2 MG/DL (0.1-1.0); BLOOD UREA NITROGEN 9 MG/DL (7-18); BUN/CREATININE RATIO 10.6 (6.6-38.0); CHLORIDE 105 MMOL/L (99-107); CREATININE 0.85 MG/DL (0.40-0.90); GLUCOSE 98 MG/DL (70-104); POTASSIUM 3.9 MMOL/L (3.5-5.1); SODIUM 140 MMOL/L (135-145); TOTAL CARBON DIOXIDE 24.2 MMOL/L (24-32); eGFR 73 ML/MIN
== END 2019-11-20 13:40 | disposition home or self-care (01) ==
LOC: WOUND CARE 13:00
PROVIDERS: ATTEND Nurse Practitioner
DX: T81.89XD Other complications of procedures, not elsewhere classified, subsequent encounter (principal); E11.621 Type 2 diabetes mellitus with foot ulcer; I83.225 Varicose veins of left lower extremity with both ulcer other part of foot and inflammation; L97.522 Non-pressure chronic ulcer of other part of left foot with fat layer exposed; E11.622 Type 2 diabetes mellitus with other skin ulcer; L98.492 Non-pressure chronic ulcer of skin of other sites with fat layer exposed; S31.109D Unspecified open wound of abdominal wall, unspecified quadrant without penetration into peritoneal cavity, subsequent encounter; L84 Corns and callosities; I12.9 Hypertensive chronic kidney disease with stage 1 through stage 4 chronic kidney disease, or unspecified chronic kidney disease; E11.22 Type 2 diabetes mellitus with diabetic chronic kidney disease; N18.3 Chronic kidney disease, stage 3 (moderate); E11.40 Type 2 diabetes mellitus with diabetic neuropathy, unspecified; G60.9 Hereditary and idiopathic neuropathy, unspecified; I25.10 Atherosclerotic heart disease of native coronary artery without angina pectoris; M10.9 Gout, unspecified; I25.2 Old myocardial infarction; E78.5 Hyperlipidemia, unspecified; G89.29 Other chronic pain; F19.10 Other psychoactive substance abuse, uncomplicated; F17.200 Nicotine dependence, unspecified, uncomplicated; F32.9 Major depressive disorder, single episode, unspecified; F41.9 Anxiety disorder, unspecified; Z79.01 Long term (current) use of anticoagulants; Z79.02 Long term (current) use of antithrombotics/antiplatelets; Z79.899 Other long term (current) drug therapy; Z95.5 Presence of coronary angioplasty implant and graft; Z86.19 Personal history of other infectious and parasitic diseases; Z79.82 Long term (current) use of aspirin; Z86.718 Personal history of other venous thrombosis and embolism; Z86.14 Personal history of Methicillin resistant Staphylococcus aureus infection; Z98.890 Other specified postprocedural states; Y83.8 Other surgical procedures as the cause of abnormal reaction of the patient, or of later complication, without mention of misadventure at the time of the procedure; X58.XXXD Exposure to other specified factors, subsequent encounter
CPT/HCPCS: 36415; 80053; 85025; 93005; 97597; U0003

== ENCOUNTER 2019-11-25 13:05 | Day surgery (SDC) | payer MEDICAID ==
[2019-11-25] MEDS ORDERED: LIDOcaine 2% 5ml jelly ONE (13:25)
[2019-11-25] MEDS ORDERED: nystatin/triamcinolone cream 15gm TP ONE (13:39)
[2019-11-25] MEDS ORDERED: hydrocortisone 1% cream 28gm TP ONE (13:39)
[2019-11-26] MEDS ORDERED: CLON-529 PO (10:53)
== END 2019-11-25 14:40 | disposition home or self-care (01) ==
LOC: WOUND CARE 13:05
PROVIDERS: ATTEND Nurse Practitioner
DX: T81.89XD Other complications of procedures, not elsewhere classified, subsequent encounter (principal); E11.621 Type 2 diabetes mellitus with foot ulcer; I83.225 Varicose veins of left lower extremity with both ulcer other part of foot and inflammation; L97.522 Non-pressure chronic ulcer of other part of left foot with fat layer exposed; E11.622 Type 2 diabetes mellitus with other skin ulcer; L98.492 Non-pressure chronic ulcer of skin of other sites with fat layer exposed; S31.109D Unspecified open wound of abdominal wall, unspecified quadrant without penetration into peritoneal cavity, subsequent encounter; L84 Corns and callosities; I12.9 Hypertensive chronic kidney disease with stage 1 through stage 4 chronic kidney disease, or unspecified chronic kidney disease; E11.22 Type 2 diabetes mellitus with diabetic chronic kidney disease; N18.3 Chronic kidney disease, stage 3 (moderate); E11.40 Type 2 diabetes mellitus with diabetic neuropathy, unspecified; G60.9 Hereditary and idiopathic neuropathy, unspecified; I25.10 Atherosclerotic heart disease of native coronary artery without angina pectoris; M10.9 Gout, unspecified; I25.2 Old myocardial infarction; E78.5 Hyperlipidemia, unspecified; G89.29 Other chronic pain; F19.10 Other psychoactive substance abuse, uncomplicated; F17.200 Nicotine dependence, unspecified, uncomplicated; F32.9 Major depressive disorder, single episode, unspecified; F41.9 Anxiety disorder, unspecified; Z79.01 Long term (current) use of anticoagulants; Z79.02 Long term (current) use of antithrombotics/antiplatelets; Z79.899 Other long term (current) drug therapy; Z95.5 Presence of coronary angioplasty implant and graft; Z86.19 Personal history of other infectious and parasitic diseases; Z79.82 Long term (current) use of aspirin; Z86.718 Personal history of other venous thrombosis and embolism; Z86.14 Personal history of Methicillin resistant Staphylococcus aureus infection; Z98.890 Other specified postprocedural states; Y83.8 Other surgical procedures as the cause of abnormal reaction of the patient, or of later complication, without mention of misadventure at the time of the procedure; X58.XXXD Exposure to other specified factors, subsequent encounter
CPT/HCPCS: 97597; J7999

== ENCOUNTER 2019-11-26 10:19 | Inpatient (IN) | payer MEDICAID ==
[~2019-11-26] VITALS: Ht 170.2 cm; Wt 97.4 kg
[2019-11-26] VITALS (23 sets, daily range): BP systolic 103–157; BP diastolic 60–105
[~2019-11-26 10:19] MED LIST changes: +ceFAZolin 2gm in dextrose, iso 50 ML IV ONE; +famotidine 20mg tablet PO ONE; +ringers solution, lacted 1,000 ML IV SCH
[2019-11-26] MEDS ORDERED: CLON-529 PO (10:53)
[2019-11-26 10:59] LABS: PREOP URINE HCG NEGATIVE (NEGATIVE)
[2019-11-26] MEDS ORDERED: BUPIVAcaine/PF 2.5 mg/ml (0.25%) 30ml vial ONE (15:33)
[2019-11-26] MEDS ORDERED: fentaNYL /PF 50mcg/ml 5ml ampule ONE (15:40)
[2019-11-26] MEDS ORDERED: midazolam 2 mg/2 ml injection ONE (15:40)
[2019-11-26] MEDS ORDERED: sevoflurane 250ml liquid IH ONE (15:41)
[2019-11-26] MEDS ORDERED: rocuronium 10mg/ml inj IV ONE (15:41)
[2019-11-26] MEDS ORDERED: ketamine 50mg/5ml syringe ONE (15:49)
[2019-11-26] MEDS ORDERED: ondansetron/PF 4mg/2ml inj ONE ×2 (16:17→16:49)
[2019-11-26] MEDS ORDERED: meperidine/PF 50mg/ml syringe ONE (16:17)
[2019-11-26] MEDS ORDERED: LIDOcaine 2% (20mg/ml) 5ml vial ONE (16:18)
[2019-11-26] MEDS ORDERED: propofol inj 20 ML IV ONE (16:18)
[2019-11-26] MEDS ORDERED: ringers solution, lacted 1,000 ML IV SCH (16:32)
[2019-11-26] MEDS ORDERED: HYDROmorphone inj. 0.5 MG/0.5 ML DISP.SYRIN IV PRN (16:35)
[2019-11-26] MEDS ORDERED: fentaNYL/PF 50MCG/1 ML 2ML syringe IV PRN ×2 (16:35)
[2019-11-26] MEDS ORDERED: ondansetron/PF 4mg/2ml inj IV PRN ×2 (16:35→18:35)
[2019-11-26] MEDS ORDERED: HYDROmorphone 1 mg/ml syringe ONE ×2 (16:47→17:02)
[2019-11-26] MEDS ORDERED: neostigmine methylsulfate 1 MG/ML 10ml vial ONE (16:49)
[2019-11-26] MEDS ORDERED: glycopyrrolate 0.2mg/ml inj ONE (16:49)
[2019-11-26] MEDS ORDERED: dexamethasone sod phosphate 4mg/ml inj. ONE (16:49)
--- NOTE | 2019-11-26 16:59 | NUR ---
Received from OR via , accompanied by Anesthesiologist DR FONTENOT and report given by Anesthesiolgist. PT IS AWAKE AND C/O SEVERE SURGICAL SITE PAIN. WILL ADDRESS. VITALS STABLE. DRESSINGS DI. JPS X2 WITH SM AMNT SERO SANG IN BULBS.
[2019-11-26] MEDS ORDERED: LORazepam 2 mg/ml vial IV ONE ×2 (17:10)
--- NOTE | 2019-11-26 17:17 | NUR ---
DR Home FONTENOT GAVE AN ORDER FOR ME TO OVERRIDE DILUADID FOR THIS PT, SHE IS YELLING AND CRYING.
[2019-11-26] MEDS: HYDROmorphone inj. 0.5 MG/0.5 ML DISP.SYRIN IV PRN ×3 (17:23→17:50)
[2019-11-26] MEDS ORDERED: naloxone 0.4 mg/ml inj IV PRN (18:35)
[2019-11-26] MEDS ORDERED: CADD PCA waste documentation MC PRN (18:35)
[2019-11-26] MEDS ORDERED: acetaminophen 325mg tablet PO PRN (18:35)
[2019-11-26] MEDS ORDERED: ibuprofen tablet 400 MG TABLET PO PRN (18:45)
[2019-11-26] MEDS ORDERED: cloNIDine 0.1 mg tablet PO PRN ×2 (18:45)
--- NOTE | 2019-11-26 19:20 | NUR ---
Received report from recovery manager Joshua. Patient to follow shortly.
--- NOTE | 2019-11-26 19:29 | NUR ---
Report called to receiving nurse. Transferred via [facility] . Special Issues communicated to receiving nurse. AWAKE AND ORIENTED. VITALS STABLE. DRESSINGS DI. STATES PAIN HAS IMPROVED SOME. TO SURGICAL RM [id number] AT THIS TIME.
--- NOTE | 2019-11-26 19:35 | NUR ---
Patient arrived to floor via gurney. Pt. A&O, and c/o pain. Pt. assisted to toilet to void, and then back into bed and settled in. Went to attach the cadd tubing to PIV and pt. demanding to know why she was getting a cadd pump when apparently she had spoke to MD prior to having surgery 1 mth ago and was not going to have a cadd, but medication that nurse could give. Pt. very emotional ,angry and crying. Explained how the cadd pump works and how medication would be delivered q20 mins. Pt. angry and complaining so this nurse called MD to discuss other options. MD suggested percocet 20mg prn pain q4hr and to take down the cadd. Relayed this information to patient who was very upset again, stating "I won't take percocet, this is not what I was told and MD is a liar. NUrse never put this order in as patient stated "i'll keep the cadd".
[2019-11-26] MEDS ORDERED: famotidine 20mg tablet PO SCH (20:00)
[2019-11-26] MEDS: HYDROmorphone/NS 1 mg/ml CADD 50 ML IV SCH ×3 (21:00→23:00)
[2019-11-26] MEDS: gabapentin 400mg capsule PO SCH (21:00)
[2019-11-26] MEDS: traZODone 50mg tablet PO SCH (21:26)
[2019-11-26] MEDS: quetiapine 100mg tablet PO SCH (21:27)
[2019-11-26] MEDS: tizanidine 4mg tablet PO SCH (21:28)
[2019-11-26] MEDS: potassium cl 20mEq in 1/2 NS 1,000 ML IV SCH (23:23)
--- NOTE | 2019-11-26 23:34 | NUR ---
Called down to pharmacy about the missing pepcid, pharmacist stated it was given earlier before pt. went to surgery.
[2019-11-27] VITALS: BP 116/70
[2019-11-27] MEDS: HYDROmorphone/NS 1 mg/ml CADD 50 ML IV SCH ×7 (01:00→13:00)
[2019-11-27 04:00] VITALS: BP 117/61
[2019-11-27] MEDS: potassium cl 20mEq in 1/2 NS 1,000 ML IV SCH ×3 (04:35→19:45)
--- NOTE | 2019-11-27 06:49 | NUR ---
Problems reprioritized. Patient report given, questions answered & plan of care reviewed with Aggie RIVERA. Patient is currently sleeping, bed low and rails x2 up.
--- NOTE | 2019-11-27 06:49 | NUR ---
Patient in room [facility] 347. I have received report from flavio stewart and had the opportunity to ask questions and assume patient care.
[2019-11-27 07:00] VITALS: BP 108/69
[2019-11-27] MEDS: gabapentin 400mg capsule PO SCH ×3 (07:46→21:00)
[2019-11-27 09:06] LABS: BASOPHILS % (AUTO) 0.3 % (0-1); EOSINOPHILS % (AUTO) 0 % (0-6); HEMOGLOBIN 12.7 g/dl (12.0-16.0); MEAN CORPUSCULAR HEMOGLOBIN 29.6 PG (27.0-31.0); MEAN CORPUSCULAR HGB CONC 33.5 g/dL (33.0-36.5); MEAN CORPUSCULAR VOLUME 88.5 FL (78-98); MEAN PLATELET VOLUME 8.6 FL (7.4-10.4); MONOCYTES # (AUTO) 0.5 X10'3 (0-0.9); MONOCYTES % (AUTO) 4.2 % (2-12); NEUTROPHILS # (AUTO) 10.5 X10'3 (1.8-7.7); NEUTROPHILS % (AUTO) 80.5 % (42-75); PLATELET COUNT 272 X10'3 (140-440); RED CELL DISTRIBUTION WIDTH 14.3 % (11.5-14.5)
[2019-11-27 09:29] LABS: ALBUMIN 3.1 G/DL (3.4-5.0); ALBUMIN/GLOBULIN RATIO 0.7 (1.1-1.5); ALKALINE PHOSPHATASE 86 IU/L (46-116); ANION GAP 7 (8-16); ASPARTATE AMINO TRANSFERASE 17 U/L (10-37); BILIRUBIN,TOTAL 0.3 MG/DL (0.1-1.0); BLOOD UREA NITROGEN 10 MG/DL (7-18); BUN/CREATININE RATIO 14.7 (6.6-38.0); CALCIUM 8.6 MG/DL (8.5-10.1); CHLORIDE 105 MMOL/L (99-107); CREATININE 0.68 MG/DL (0.40-0.90); GLUCOSE 116 MG/DL (70-104); POTASSIUM 4.4 MMOL/L (3.5-5.1); SODIUM 137 MMOL/L (135-145); TOTAL CARBON DIOXIDE 25.3 MMOL/L (24-32); TOTAL PROTEIN 7.6 G/DL (6.4-8.2); eGFR > 90 ML/MIN
[2019-11-27 09:38] LABS: ALANINE AMINOTRANSFERASE 19 U/L (12-78)
[2019-11-27] MEDS ORDERED: famotidine 10mg tablet PO SCH (09:40)
[2019-11-27] MEDS: famotidine 10mg tablet PO SCH ×2 (10:28→19:46)
[2019-11-27 12:00] VITALS: BP 124/66
[2019-11-27] MEDS: HYDROmorphone 1 mg/ml syringe IV PRN ×3 (14:56→21:26)
[2019-11-27 18:00] VITALS: BP 115/59
--- NOTE | 2019-11-27 18:37 | NUR ---
Patient in room [facility] 347. I have received report from MARY ELLEN RIVERA and had the opportunity to ask questions and assume patient care.
[2019-11-27] MEDS: quetiapine 100mg tablet PO SCH (21:24)
[2019-11-27] MEDS: traZODone 50mg tablet PO SCH (21:24)
[2019-11-27] MEDS: tizanidine 4mg tablet PO SCH (21:24)
[2019-11-28] VITALS: BP 120/60
[2019-11-28] MEDS: HYDROmorphone 1 mg/ml syringe IV PRN ×8 (00:28→22:52)
[2019-11-28] MEDS: potassium cl 20mEq in 1/2 NS 1,000 ML IV SCH ×3 (03:46→22:56)
--- NOTE | 2019-11-28 06:00 | NUR ---
Patient in room [facility] 347. I have received report from MIGUEL Simon and had the opportunity to ask questions and assume patient care.
--- NOTE | 2019-11-28 06:20 | NUR ---
Problems reprioritized. Patient report given, questions answered & plan of care reviewed with Musad RN.Patient resting.
[2019-11-28] MEDS: gabapentin 400mg capsule PO SCH ×3 (07:10→21:00)
[2019-11-28] MEDS: famotidine 10mg tablet PO SCH ×2 (07:10→19:29)
[2019-11-28 09:10] VITALS: BP 139/80
[2019-11-28 12:00] VITALS: BP 136/84
[2019-11-28 18:00] VITALS: BP 147/82
--- NOTE | 2019-11-28 18:12 | NUR ---
Problems reprioritized. Patient report given, questions answered & plan of care reviewed with MIGUEL Simon.
--- NOTE | 2019-11-28 18:25 | NUR ---
Patient in room [facility] 347. I have received report from BEATRIZ RIVERA and had the opportunity to ask questions and assume patient care.
[2019-11-28] MEDS: quetiapine 100mg tablet PO SCH (22:54)
[2019-11-28] MEDS: traZODone 50mg tablet PO SCH (22:54)
[2019-11-28] MEDS: tizanidine 4mg tablet PO SCH (22:55)
[2019-11-29 00:28] VITALS: BP 122/76
[2019-11-29] MEDS: HYDROmorphone 1 mg/ml syringe IV PRN ×5 (03:10→15:41)
--- NOTE | 2019-11-29 06:24 | NUR ---
Problems reprioritized. Patient report given, questions answered & plan of care reviewed with Madison RIVERA.
[2019-11-29 07:48] VITALS: BP 126/80
[2019-11-29] MEDS: potassium cl 20mEq in 1/2 NS 1,000 ML IV SCH (09:28)
[2019-11-29] MEDS: famotidine 10mg tablet PO SCH (09:29)
[2019-11-29] MEDS: gabapentin 400mg capsule PO SCH ×2 (09:29→12:40)
[2019-11-29 11:00] VITALS: BP 164/89
--- NOTE | 2019-11-29 14:00 | NUR ---
Called [facility] on [address] Pharmacy stated they will not fill pain medication ordered due to contraindications while taking Suboxone. [facility] pt's preferred pharmacy will not issue medication as well. Pharmacist states medications are dangerous to take together and since the pt. has a suboxone prescription at home already there is no way of knowing wether or not she will take the two medications together. MD Mendenhall notified. Pt. threw a huge yelling fit. Multiplte RNs in room trying to console and educate pt. Pt. cursing thrashing arms about yelling, and crying. Pt. demanded her last dose of Dilaudid before discharge. Educated on the effects of the pain medication and it's side effects, education refused. Pt. stated, "Just give me my pain medication!".
--- NOTE | 2019-11-29 16:30 | NUR ---
Pt. given ample education throughout the day on [facility] drain care. Antibiotic ointment physically provided to pt as well as qtips to apply the ointment. Infection control techniques taught to pt. Pt returned good feedback through demonstration, however she remained somewhat anxious throughout the day r/t her pain medication. Provided wound care and wound care education to the pt. Extra bandages were provided to the pt. on discharge, however the pt. stated, "I will probably just come in first thing tomorrow to the wound clinic to get my dressing changed anyway". Pt. knows that she can shower, but was advised not to leave bandages wet. She knows she needs to follow up with wound care this week, and with MD Mendenhall within a week as well. She is aware she can take her ibuprofen as ordered and plans to continue her Suboxone in the morning so that she is "not in pain" and "sick" as well. is aware that pharmacy would not fill pain medication due to the fact the patient is currently taking Suboxone and has some at home which is a contraindication to the pain medication. IV discontinued, pressure bandage applied, no s/sx bleeding noted. Pt. was escorted to the lobby of the [facility] where her mother picked her up to go home. Pt. left with all of her belongings.
[2019-11-29] MEDS ORDERED: mupirocin 2% ointment 22GM TP SCH (20:00)
== END 2019-11-29 16:32 | disposition home or self-care (01) | DRG 813 ==
LOC: OBSVTOIN 10:19 → UNDOADMIN 10:19 → PAS IN 10:19 → INTOOBSV 10:19 → EDSTATUS 11:00 → PAS IN 19:35 → SUR 3N 19:35
PROVIDERS: ADMIT Surgery; ATTEND Surgery
PROC: 0JB80ZZ Excision of Abdomen Subcutaneous Tissue and Fascia, Open Approach (ICD-10-PCS; 2019-11-26)
PROC: 0JBR0ZZ Excision of Left Foot Subcutaneous Tissue and Fascia, Open Approach (ICD-10-PCS; principal; 2019-11-26 15:41)
DX: T81.89XA Other complications of procedures, not elsewhere classified, initial encounter (principal); L97.522 Non-pressure chronic ulcer of other part of left foot with fat layer exposed; Y83.8 Other surgical procedures as the cause of abnormal reaction of the patient, or of later complication, without mention of misadventure at the time of the procedure; I83.225 Varicose veins of left lower extremity with both ulcer other part of foot and inflammation; L98.492 Non-pressure chronic ulcer of skin of other sites with fat layer exposed; Z88.0 Allergy status to penicillin; Z90.49 Acquired absence of other specified parts of digestive tract; S31.109D Unspecified open wound of abdominal wall, unspecified quadrant without penetration into peritoneal cavity, subsequent encounter; Y92.89 Other specified places as the place of occurrence of the external cause
CPT/HCPCS: 36415; 76937; 80053; 81025; 82948; 85025; 87081; A4215; A4618; A7000; G0378; J1100; J1170; J2001; J2060; J2175; J2250; J2405; J2704; J2710; J3010; J3480; J3490; J7120

== ENCOUNTER 2019-12-12 20:40 | Emergency (ER) | payer MEDICAID ==
[~2019-12-12] VITALS: Ht 170.2 cm; Wt 100.0 kg
[~2019-12-12 20:40] MED LIST changes: +CLON-529 PO; -ceFAZolin 2gm in dextrose, iso 50 ML IV ONE; -famotidine 20mg tablet PO ONE; -ringers solution, lacted 1,000 ML IV SCH
[2019-12-12 20:45] VITALS: BP 139/82
== END 2019-12-12 23:01 | disposition home or self-care (01) ==
LOC: ER 20:41
DX: G89.29 Other chronic pain (principal); Z48.00 Encounter for change or removal of nonsurgical wound dressing; F41.9 Anxiety disorder, unspecified; F32.9 Major depressive disorder, single episode, unspecified; Z86.69 Personal history of other diseases of the nervous system and sense organs; Z86.19 Personal history of other infectious and parasitic diseases; Z86.718 Personal history of other venous thrombosis and embolism; Z86.14 Personal history of Methicillin resistant Staphylococcus aureus infection; Z90.49 Acquired absence of other specified parts of digestive tract; Z98.890 Other specified postprocedural states; Z72.89 Other problems related to lifestyle; Z88.0 Allergy status to penicillin; Z88.8 Allergy status to other drugs, medicaments and biological substances; Z79.899 Other long term (current) drug therapy
CPT/HCPCS: 99281

== ENCOUNTER 2019-12-15 11:33 | Emergency (ER) | payer MEDICAID ==
[~2019-12-15] VITALS: Ht 170.2 cm; Wt 95.5 kg
[2019-12-15 11:47] VITALS: BP 153/100
[2019-12-15] MEDS ORDERED: LORazepam 1 MG tablet PO ONE (12:15)
[2019-12-15] MEDS ORDERED: hyDROXYzine 50 mg/ml injection ***IM only IM ONE (13:05)
[2019-12-15] MEDS ORDERED: ondansetron 4mg rapidly disintigrating tab PO ONE (13:05)
--- NOTE | 2019-12-15 13:16 | NUR ---
PT IS VERY HOSTILE. PT IS PACING AROUND HER ROOM. PT IS SCREAMING. PT IS CRYING. PT IS HITTING THE JIMÉNEZ. SECURITY IS ON STANDBY.
--- NOTE | 2019-12-15 13:48 | NUR ---
pt willingly took medications and allowed placement of island dressing and fluffs, with rubber tape, placed non adherant split gauze on remaining drain
== END 2019-12-15 13:54 | disposition home or self-care (01) ==
LOC: ER 11:34
DX: T81.30XA Disruption of wound, unspecified, initial encounter (principal); F41.9 Anxiety disorder, unspecified; F60.4 Histrionic personality disorder; G89.29 Other chronic pain; F32.9 Major depressive disorder, single episode, unspecified; Z86.19 Personal history of other infectious and parasitic diseases; Z86.14 Personal history of Methicillin resistant Staphylococcus aureus infection; Z86.718 Personal history of other venous thrombosis and embolism; Z90.49 Acquired absence of other specified parts of digestive tract; Z98.890 Other specified postprocedural states; Z72.89 Other problems related to lifestyle; Z86.69 Personal history of other diseases of the nervous system and sense organs; Z88.8 Allergy status to other drugs, medicaments and biological substances; Z79.899 Other long term (current) drug therapy; Y83.8 Other surgical procedures as the cause of abnormal reaction of the patient, or of later complication, without mention of misadventure at the time of the procedure; Y92.89 Other specified places as the place of occurrence of the external cause
CPT/HCPCS: 96372; 99283; J3410

== ENCOUNTER 2019-12-16 15:46 | Inpatient (IN) | payer MEDICAID ==
[~2019-12-16] VITALS: Ht 170.2 cm; Wt 98.0 kg
[~2019-12-16 15:46] MED LIST changes: -CLIN-5 PO; -HYDR-4353 PO; -LIDOcaine 2% 5ml jelly ONE; -OXYC-150 PO
[2019-12-16] MEDS ORDERED: magnesium 2GM in 50ml NS 50 ML IV PRN (16:50)
[2019-12-16] MEDS ORDERED: acetaminophen 650mg rectal suppository RC PRN (16:50)
[2019-12-16] MEDS ORDERED: magnesium 4gm in 100ml NS 100 ML IV PRN (16:50)
[2019-12-16] MEDS ORDERED: potassium Cl 20 mEq SR tablet PO PRN (16:50)
[2019-12-16] MEDS ORDERED: magnesium hydroxide 30ml (MOM) UD suspension PO PRN (16:50)
[2019-12-16] MEDS ORDERED: HYDROmorphone inj. 0.5 MG/0.5 ML DISP.SYRIN IV PRN (16:50)
[2019-12-16] MEDS ORDERED: HYDROcodone/acetaminophen 10/325mg tab PO PRN (16:50)
[2019-12-16] MEDS ORDERED: morphine 2 MG/ML inj. syringe IV PRN ×2 (16:50)
[2019-12-16] MEDS ORDERED: bisacodyl 10mg suppository rectal RC PRN (16:50)
[2019-12-16] MEDS ORDERED: potassium CL 10mEq/100ml bag 100 ML IV PRN ×2 (16:50)
[2019-12-16] MEDS ORDERED: acetaminophen 325mg tablet PO PRN ×2 (16:50)
[2019-12-16] MEDS ORDERED: HYDROcodone/acetaminophen 5mg/325mg tablet PO PRN (16:50)
[2019-12-16] MEDS ORDERED: magnesium Cl slow-release 64mg tablet PO PRN (16:50)
[2019-12-16] MEDS ORDERED: mag hydrox/Alum hydrox/simeth 30ml oral suspension PO PRN (16:50)
[2019-12-16 18:11] LABS: BASOPHILS # (AUTO) 0.1 X10'3 (0-0.2); BASOPHILS % (AUTO) 0.4 % (0-1); EOSINOPHILS # (AUTO) 0.1 X10'3 (0-0.9); EOSINOPHILS % (AUTO) 0.9 % (0-6); HEMATOCRIT 36.5 % (35.0-45.0); HEMOGLOBIN 12.3 g/dl (12.0-16.0); LYMPHOCYTES # (AUTO) 3.9 X10'3 (1.1-4.8); LYMPHOCYTES % (AUTO) 27.1 % (21-51); MEAN CORPUSCULAR HEMOGLOBIN 29.1 PG (27.0-31.0); MEAN CORPUSCULAR HGB CONC 33.6 g/dL (33.0-36.5); MEAN CORPUSCULAR VOLUME 86.6 FL (78-98); MONOCYTES # (AUTO) 0.8 X10'3 (0-0.9); MONOCYTES % (AUTO) 5.4 % (2-12); NEUTROPHILS # (AUTO) 9.6 X10'3 (1.8-7.7); NEUTROPHILS % (AUTO) 66.2 % (42-75); PLATELET COUNT 378 X10'3 (140-440); RED BLOOD COUNT 4.21 X10'6 (4.20-5.60); WHITE BLOOD COUNT 14.5 X10'3 (4.5-11.0)
[2019-12-16 18:27] LABS: HEMOGLOBIN A1C 6.1 % (4.5-6.2)
--- NOTE | 2019-12-16 18:30 | NUR ---
Patient in room [facility] 353. I have received report from Lars RIVERA and had the opportunity to ask questions and assume patient care.
[2019-12-16] MEDS: piperacillin/tazo 3.375gm/50ml 50 ML IV SCH ×2 (19:07→23:59)
[2019-12-16 19:08] LABS: ANION GAP 13 (8-16); BILIRUBIN,TOTAL 0.3 MG/DL (0.1-1.0); BLOOD UREA NITROGEN 14 MG/DL (7-18); CALCIUM 8.7 MG/DL (8.5-10.1); CHLORIDE 101 MMOL/L (99-107); GLUCOSE 94 MG/DL (70-104); MAGNESIUM 1.8 MG/DL (1.5-2.4); PHOSPHORUS 3.4 MG/DL (2.3-4.5); SODIUM 139 MMOL/L (135-145); TOTAL CARBON DIOXIDE 25.5 MMOL/L (24-32); eGFR > 90 ML/MIN
[2019-12-16 19:09] LABS: ALANINE AMINOTRANSFERASE 16 U/L (12-78); ALBUMIN 3.1 G/DL (3.4-5.0); ALBUMIN/GLOBULIN RATIO 0.6 (1.1-1.5); ALKALINE PHOSPHATASE 85 IU/L (46-116); ASPARTATE AMINO TRANSFERASE 20 U/L (10-37); TOTAL PROTEIN 7.9 G/DL (6.4-8.2)
[2019-12-16 19:12] LABS: POTASSIUM 2.8 MMOL/L (3.5-5.1)
[2019-12-16] MEDS: HYDROmorphone 1 mg/ml syringe IV PRN ×2 (19:12→23:20)
[2019-12-16 20:00] VITALS: BP 129/81
[2019-12-16] MEDS: K and/or MAG REPLACEMENT MC SCH (20:00)
[2019-12-16] MEDS: normal saline 1000ml 1,000 ML IV SCH (20:31)
[2019-12-16] MEDS: VANCOmycin 1250MG/NS 250ml Bag 250 ML IV SCH (20:31)
[2019-12-16] MEDS: ondansetron/PF 4mg/2ml inj IV PRN (20:34)
[2019-12-16] MEDS: potassium Cl 20 mEq SR tablet PO PRN (20:35)
[2019-12-16] MEDS: heparin, porcine 5000 units/ml vial SQ SCH (20:43)
[2019-12-16] MEDS ORDERED: temazepam 15mg capsule PO PRN (21:00)
[2019-12-16 23:27] LABS: CLARITY,URINE CLEAR (Clear); COLOR,URINE YELLOW (Yellow); GLUCOSE, URINE NEGATIVE (Neg); KETONES,URINE NEGATIVE (Neg); LEUKOCYTE ESTERASE ,URINE NEGATIVE (Neg); NITRITES, URINE NEGATIVE (Neg); OCCULT BLOOD,URINE NEGATIVE (Neg); PROTEIN,URINE NEGATIVE (Neg)
[2019-12-16 23:33] LABS: UA COLLECTION TYPE VOIDED
[2019-12-16 23:39] LABS: URINE AMPHETAMINE SCREEN NEGATIVE (Neg); URINE BARBITUATE SCREEN NEGATIVE (Neg); URINE BENZODIAZEPINES SCREEN NEGATIVE (Neg); URINE CANNABINOID SCREEN POSITIVE (Neg); URINE COCAINE SCREEN NEGATIVE (Neg); URINE METHADONE SCREEN NEGATIVE (Neg); URINE OPIATE SCREEN POSITIVE (Neg); URINE PHENCYCLIDINE SCREEN NEGATIVE (Neg)
[2019-12-16] MEDS ORDERED: HYDROmorphone 1 mg/ml syringe IV PRN (23:45)
[2019-12-16] MEDS ORDERED: oxyCODONE/APAP 10/325mg tablet PO PRN (23:45)
[2019-12-17] VITALS: BP 140/87
[2019-12-17] MEDS: potassium Cl 20 mEq SR tablet PO PRN (00:35)
[2019-12-17] MEDS ORDERED: HYDROmorphone 1 mg/ml syringe IV PRN ×2 (00:55→02:30)
[2019-12-17] MEDS: normal saline 1000ml 1,000 ML IV SCH ×3 (02:47→17:08)
[2019-12-17] MEDS: HYDROmorphone 1 mg/ml syringe IV PRN ×5 (03:40→21:46)
[2019-12-17] MEDS: VANCOmycin 1250MG/NS 250ml Bag 250 ML IV SCH ×3 (04:23→20:00)
[2019-12-17 04:24] LABS: URINE HCG NEGATIVE (NEG)
[2019-12-17 05:15] LABS: BASOPHILS % (AUTO) 0.4 % (0-1); EOSINOPHILS # (AUTO) 0.2 X10'3 (0-0.9); EOSINOPHILS % (AUTO) 1.4 % (0-6); HEMOGLOBIN 12.5 g/dl (12.0-16.0); MEAN CORPUSCULAR HGB CONC 33.8 g/dL (33.0-36.5); MEAN PLATELET VOLUME 8.1 FL (7.4-10.4); MONOCYTES # (AUTO) 0.7 X10'3 (0-0.9); MONOCYTES % (AUTO) 6.4 % (2-12); NEUTROPHILS # (AUTO) 7.2 X10'3 (1.8-7.7); NEUTROPHILS % (AUTO) 64.8 % (42-75); PLATELET COUNT 358 X10'3 (140-440); RED BLOOD COUNT 4.31 X10'6 (4.20-5.60); WHITE BLOOD COUNT 11.2 X10'3 (4.5-11.0)
[2019-12-17 05:28] LABS: ALANINE AMINOTRANSFERASE 17 U/L (12-78); ALBUMIN/GLOBULIN RATIO 0.7 (1.1-1.5); ALKALINE PHOSPHATASE 85 IU/L (46-116); ANION GAP 10 (8-16); ASPARTATE AMINO TRANSFERASE 15 U/L (10-37); BILIRUBIN,TOTAL 0.4 MG/DL (0.1-1.0); BLOOD UREA NITROGEN 14 MG/DL (7-18); BUN/CREATININE RATIO 18.4 (6.6-38.0); CALCIUM 8.4 MG/DL (8.5-10.1); CHLORIDE 105 MMOL/L (99-107); CHOL/HDL RATIO 4.6 (0.00-4.99); CHOLESTEROL 161 MG/DL (0-200); CREATININE 0.76 MG/DL (0.40-0.90); GLUCOSE 105 MG/DL (70-104); HDL CHOLESTEROL 35 MG/DL (35-60); LDL CHOLESTEROL 91 MG/DL (50-100); MAGNESIUM 1.9 MG/DL (1.5-2.4); PHOSPHORUS 3.6 MG/DL (2.3-4.5); POTASSIUM 3.6 MMOL/L (3.5-5.1); SODIUM 140 MMOL/L (135-145); TOTAL CARBON DIOXIDE 25.2 MMOL/L (24-32); TOTAL PROTEIN 7.6 G/DL (6.4-8.2); TRIGLYCERIDES 251 MG/DL (20-135); eGFR 83 ML/MIN
--- NOTE | 2019-12-17 06:31 | NUR ---
Problems reprioritized. Patient report given, questions answered & plan of care reviewed with Erin RIVERA.
--- NOTE | 2019-12-17 06:53 | NUR ---
Patient in room [facility] 353. I have received report from MIGUEL Simmons and had the opportunity to ask questions and assume patient care.
[2019-12-17 08:00] VITALS: BP 136/87
[2019-12-17] MEDS: K and/or MAG REPLACEMENT MC SCH ×2 (08:00→20:00)
[2019-12-17] MEDS: piperacillin/tazo 3.375gm/50ml 50 ML IV SCH ×3 (08:01→23:50)
[2019-12-17] MEDS: heparin, porcine 5000 units/ml vial SQ SCH ×2 (08:03→21:44)
--- NOTE | 2019-12-17 09:29 | NUR ---
Discharge meds (not pain meds) to be filled by [facility] (Garrison Steen), and discharge pain meds to be filled by [facility] (Harriett Lara), per US.
[2019-12-17] MEDS ORDERED: cloNIDine 0.1 mg tablet PO PRN ×2 (10:05)
[2019-12-17] MEDS: gabapentin 400mg capsule PO SCH ×2 (12:09→21:00)
[2019-12-17] MEDS: ondansetron/PF 4mg/2ml inj IV PRN (12:19)
[2019-12-17 12:24] VITALS: BP 125/92
--- NOTE | 2019-12-17 15:02 | NUR ---
Initial: Pt admit for wound dehiscence in the abdominal area, to get wound VAC placement. Pt currently on a heart healthy diet documented with 50% PO intake at dinner last night. Pending documentation of additional PO intake at this time. LBM 12/14, PRN bowel care available. Will continue to follow closely and monitor need for ONS/additional protein pending further trends in PO intake. Recommendations: 1) Continue heart healthy diet 2) Monitor need for ONS/additional protein pending further trends in PO intake 3) Bowel care PRN 4) Scaled weights per rx Addendum: 12/17/19 at [address] Amended: Links added.
--- NOTE | 2019-12-17 15:18 | NUR ---
WOUND VAC EDUCATION PROVIDED BY WOUND CARE 1. Patient instructed to call the Wound Center or their Home Health Agency immediately if: * They notice a change in the color or amount of the fluid in the canister. * Their wound looks more red than usual or has a foul smell. * The skin around their wound looks reddened or irritated. * The dressing feels loose or appears to be loose. * They experience any increase or changes in their pain. * The alarm will not turn off. 2. Patient instructed that they should not be disconnected from suction for more than 2 hours at a time. * If they are not able to get the suction back on, they need to remove the dressing and take all of the foam out of the wound. * Then moisten sterile gauze with normal saline and place on/in the wound. * Change the dressing once a day until arrangements have been made to replace the wound vac dressing. 3. Patient instructed to turn the wound vac machine OFF and call 911 or go to the ED immediately if their canister fills rapidly with blood. 4. If any of these occur while in the hospital tell a nurse immediately. WOUND INFECTION EDUCATION PROVIDED BY WOUND CARE 1. Patient instructed to call their primary doctor, or go the ED immediately if any of the following symptoms occur: * Increased pain in wound * Increase in drainage from the wound * Redness in the skin surrounding the wound * Warmth in the skin surrounding the wound * Bleeding from the wound * Temperature of 101 or greater 2. If any of these occur while in the hospital tell a nurse immediately. Addendum: 12/17/19 at 1518 by Adair Espinoza RN Amended: Links added.
[2019-12-17] MEDS: JUVEN Shake w/Arg/Glut/Ca2+Bmb (Juven 19.3gm) pkt 240ml PO SCH (18:00)
--- NOTE | 2019-12-17 18:50 | NUR ---
Patient in room [facility] 353. I have received report from Erin RIVERA and had the opportunity to ask questions and assume patient care.
--- NOTE | 2019-12-17 18:55 | NUR ---
Problems reprioritized. Patient report given, questions answered & plan of care reviewed with MIGUEL Simmons.
[2019-12-17] MEDS ORDERED: VANCOMYCIN LEVEL IV ONE (19:30)
[2019-12-17 20:00] VITALS: BP 131/82
[2019-12-17] MEDS ORDERED: tizanidine 4mg tablet PO SCH (21:00)
[2019-12-17] MEDS ORDERED: traZODone 50mg tablet PO SCH (21:00)
[2019-12-17] MEDS ORDERED: quetiapine 100mg tablet PO SCH (21:00)
[2019-12-17] MEDS: famotidine 20mg tablet PO SCH (21:40)
[2019-12-18] VITALS: BP 130/80
[2019-12-18] MEDS: HYDROmorphone 1 mg/ml syringe IV PRN ×3 (02:09→12:15)
[2019-12-18] MEDS: normal saline 1000ml 1,000 ML IV SCH (02:21)
[2019-12-18] MEDS: ondansetron/PF 4mg/2ml inj IV PRN (02:23)
[2019-12-18 06:01] LABS: BASOPHILS % (AUTO) 0.6 % (0-1); EOSINOPHILS # (AUTO) 0.2 X10'3 (0-0.9); EOSINOPHILS % (AUTO) 3.2 % (0-6); HEMATOCRIT 32.7 % (35.0-45.0); HEMOGLOBIN 11.3 g/dl (12.0-16.0); LYMPHOCYTES # (AUTO) 2.9 X10'3 (1.1-4.8); LYMPHOCYTES % (AUTO) 39.2 % (21-51); MEAN CORPUSCULAR HEMOGLOBIN 30.3 PG (27.0-31.0); MEAN CORPUSCULAR HGB CONC 34.6 g/dL (33.0-36.5); MEAN CORPUSCULAR VOLUME 87.7 FL (78-98); MEAN PLATELET VOLUME 8.3 FL (7.4-10.4); MONOCYTES # (AUTO) 0.6 X10'3 (0-0.9); MONOCYTES % (AUTO) 7.9 % (2-12); NEUTROPHILS # (AUTO) 3.6 X10'3 (1.8-7.7); NEUTROPHILS % (AUTO) 49.1 % (42-75); PLATELET COUNT 283 X10'3 (140-440); RED BLOOD COUNT 3.73 X10'6 (4.20-5.60); RED CELL DISTRIBUTION WIDTH 13.8 % (11.5-14.5); WHITE BLOOD COUNT 7.3 X10'3 (4.5-11.0)
[2019-12-18 06:08] LABS: ALANINE AMINOTRANSFERASE 20 U/L (12-78); ALBUMIN 2.5 G/DL (3.4-5.0); ALBUMIN/GLOBULIN RATIO 0.6 (1.1-1.5); ALKALINE PHOSPHATASE 72 IU/L (46-116); ANION GAP 9 (8-16); ASPARTATE AMINO TRANSFERASE 23 U/L (10-37); BILIRUBIN,TOTAL 0.4 MG/DL (0.1-1.0); BLOOD UREA NITROGEN 9 MG/DL (7-18); BUN/CREATININE RATIO 13.2 (6.6-38.0); CALCIUM 8.2 MG/DL (8.5-10.1); CHLORIDE 109 MMOL/L (99-107); CREATININE 0.68 MG/DL (0.40-0.90); GLUCOSE 96 MG/DL (70-104); PHOSPHORUS 3.1 MG/DL (2.3-4.5); POTASSIUM 3.9 MMOL/L (3.5-5.1); SODIUM 140 MMOL/L (135-145); TOTAL CARBON DIOXIDE 21.8 MMOL/L (24-32); TOTAL PROTEIN 6.4 G/DL (6.4-8.2); eGFR > 90 ML/MIN
--- NOTE | 2019-12-18 06:34 | NUR ---
Problems reprioritized. Patient report given, questions answered & plan of care reviewed with Erin RIVERA.
--- NOTE | 2019-12-18 06:41 | NUR ---
Patient in room [facility] 353. I have received report from MIGUEL Simmons and had the opportunity to ask questions and assume patient care.
[2019-12-18 08:00] VITALS: BP 137/82
[2019-12-18] MEDS: K and/or MAG REPLACEMENT MC SCH (08:00)
[2019-12-18] MEDS: piperacillin/tazo 3.375gm/50ml 50 ML IV SCH (08:04)
[2019-12-18] MEDS: gabapentin 400mg capsule PO SCH ×2 (08:11→12:14)
[2019-12-18] MEDS: famotidine 20mg tablet PO SCH (08:11)
[2019-12-18] MEDS: JUVEN Shake w/Arg/Glut/Ca2+Bmb (Juven 19.3gm) pkt 240ml PO SCH ×2 (08:13→13:05)
[2019-12-18] MEDS: heparin, porcine 5000 units/ml vial SQ SCH (08:13)
[2019-12-18] MEDS ORDERED: vancomycin/NS 1 GM ADD-VANTAGE 250 ML IV SCH (09:00)
[2019-12-18 11:47] VITALS: BP 145/91
[2019-12-18] MEDS ORDERED: CLIN-5 PO (13:30)
--- NOTE | 2019-12-18 15:04 | NUR ---
Pt upset about discharge home. states she needs prescription for pain medication before going home and that otherwise she will have to comeback here the next day. MD informed. PAGER ID: [phone] MESSAGE: Pt. Tucker. Rm: [id number]. Pt requesting prescription for [place] 10 prior discharge. states she's not longer taking any pain meds at home. pls call. thanks Erin Med/surg. [id number]
[2019-12-18] MEDS ORDERED: HYDR-4353 PO ×2 (15:05→15:28)
[2019-12-18] MEDS ORDERED: OXYC-150 PO (15:30)
--- NOTE | 2019-12-18 16:08 | NUR ---
Pt requested to have prescription for Percocet instead of [place]. states norco makes her sick to her stomach. prescription given to pt prior discharge.
--- NOTE | 2019-12-18 16:41 | NUR ---
Pt D/C'd home. discharge and medication instruction given to pt. Pt was upset concerned about pain management at home. IV removed with cannula intact. Wound Vac provided and connected prior discharge. pt was escorted on w/c to main lobby. left the hospital via private vehicle accompanied by family member.
[2019-12-18] MEDS ORDERED: lactobacillus rhamnosus 10,000 MMU CELLS/CAPSULE PO SCH (20:00)
[2019-12-19] MEDS ORDERED: VANCOMYCIN LEVEL IV ONE (08:30)
== END 2019-12-18 16:25 | disposition home health service (06) | DRG 813 ==
LOC: SUR 3N 15:46 → UNDOADMIN 15:46 → SUR 3N 15:48
PROVIDERS: ADMIT Family Medicine; ATTEND Family Medicine
DX: T81.30XA Disruption of wound, unspecified, initial encounter (principal); G89.4 Chronic pain syndrome; F41.9 Anxiety disorder, unspecified; B19.20 Unspecified viral hepatitis C without hepatic coma; Y83.8 Other surgical procedures as the cause of abnormal reaction of the patient, or of later complication, without mention of misadventure at the time of the procedure; Z86.14 Personal history of Methicillin resistant Staphylococcus aureus infection; Z87.891 Personal history of nicotine dependence; Y92.89 Other specified places as the place of occurrence of the external cause
CPT/HCPCS: 36415; 76937; 80053; 80061; 80202; 80305; 81003; 81025; 83036; 83605; 83735; 84100; 84145; 85025; 87040; 87081; G0378; J1170; J1644; J2405; J2543; J3370; J7030

== ENCOUNTER → 2019-12-16 | Day surgery (SDC) | payer MEDICAID ==
[~2019-12-16] MED LIST changes: +CLIN-5 PO; +HYDR-4353 PO; +LIDOcaine 2% 5ml jelly ONE; +OXYC-150 PO
--- NOTE | 2019-12-16 15:56 | NUR ---
RECEIVED REPORT FROM MIGUEL WILLIAM IN WOUND CARE. PT ARRIVING TO ROOM 353.
[2019-12-16 17:00] VITALS: BP 133/82
--- NOTE | 2019-12-16 18:57 | NUR ---
Problems reprioritized. Patient report given, questions answered & plan of care reviewed with MIGUEL Simmons.
== END | disposition home or self-care (01) ==
LOC: WOUND CARE 13:14
PROVIDERS: ATTEND Nurse Practitioner
DX: T81.89XD Other complications of procedures, not elsewhere classified, subsequent encounter (principal); E11.621 Type 2 diabetes mellitus with foot ulcer; L89.892 Pressure ulcer of other site, stage 2; I83.225 Varicose veins of left lower extremity with both ulcer other part of foot and inflammation; L97.525 Non-pressure chronic ulcer of other part of left foot with muscle involvement without evidence of necrosis; E11.622 Type 2 diabetes mellitus with other skin ulcer; L98.492 Non-pressure chronic ulcer of skin of other sites with fat layer exposed; S31.109D Unspecified open wound of abdominal wall, unspecified quadrant without penetration into peritoneal cavity, subsequent encounter; L84 Corns and callosities; I12.9 Hypertensive chronic kidney disease with stage 1 through stage 4 chronic kidney disease, or unspecified chronic kidney disease; E11.22 Type 2 diabetes mellitus with diabetic chronic kidney disease; N18.3 Chronic kidney disease, stage 3 (moderate); E11.40 Type 2 diabetes mellitus with diabetic neuropathy, unspecified; G60.9 Hereditary and idiopathic neuropathy, unspecified; I25.10 Atherosclerotic heart disease of native coronary artery without angina pectoris; M10.9 Gout, unspecified; I25.2 Old myocardial infarction; E78.5 Hyperlipidemia, unspecified; G89.29 Other chronic pain; F19.10 Other psychoactive substance abuse, uncomplicated; F17.200 Nicotine dependence, unspecified, uncomplicated; F32.9 Major depressive disorder, single episode, unspecified; F41.9 Anxiety disorder, unspecified; Z79.01 Long term (current) use of anticoagulants; Z79.02 Long term (current) use of antithrombotics/antiplatelets; Z79.899 Other long term (current) drug therapy; Z95.5 Presence of coronary angioplasty implant and graft; Z86.19 Personal history of other infectious and parasitic diseases; Z79.82 Long term (current) use of aspirin; Z86.718 Personal history of other venous thrombosis and embolism; Z86.14 Personal history of Methicillin resistant Staphylococcus aureus infection; Z98.890 Other specified postprocedural states; Y83.8 Other surgical procedures as the cause of abnormal reaction of the patient, or of later complication, without mention of misadventure at the time of the procedure; X58.XXXD Exposure to other specified factors, subsequent encounter
CPT/HCPCS: 87070; 87075; 87077; 87102; 87186; 97597; 97598

== ENCOUNTER 2019-12-19 13:02 | Day surgery (SDC) | payer MEDICAID ==
[~2019-12-19 13:02] MED LIST changes: +CLIN-5 PO
[2019-12-19] MEDS ORDERED: LIDOcaine 2% 5ml jelly ONE (13:54)
[2019-12-19] MEDS ORDERED: hydrocortisone 1% cream 28gm TP ONE (14:43)
[2019-12-19] MEDS ORDERED: nystatin/triamcinolone cream 15gm TP ONE (14:43)
== END 2019-12-19 15:15 | disposition home or self-care (01) ==
LOC: WOUND CARE 13:02
PROVIDERS: ATTEND Nurse Practitioner
DX: T81.89XD Other complications of procedures, not elsewhere classified, subsequent encounter (principal); E11.621 Type 2 diabetes mellitus with foot ulcer; L89.892 Pressure ulcer of other site, stage 2; I83.225 Varicose veins of left lower extremity with both ulcer other part of foot and inflammation; L97.525 Non-pressure chronic ulcer of other part of left foot with muscle involvement without evidence of necrosis; E11.622 Type 2 diabetes mellitus with other skin ulcer; L98.492 Non-pressure chronic ulcer of skin of other sites with fat layer exposed; S31.109D Unspecified open wound of abdominal wall, unspecified quadrant without penetration into peritoneal cavity, subsequent encounter; L84 Corns and callosities; I12.9 Hypertensive chronic kidney disease with stage 1 through stage 4 chronic kidney disease, or unspecified chronic kidney disease; E11.22 Type 2 diabetes mellitus with diabetic chronic kidney disease; N18.3 Chronic kidney disease, stage 3 (moderate); E11.40 Type 2 diabetes mellitus with diabetic neuropathy, unspecified; G60.9 Hereditary and idiopathic neuropathy, unspecified; I25.10 Atherosclerotic heart disease of native coronary artery without angina pectoris; M10.9 Gout, unspecified; I25.2 Old myocardial infarction; E78.5 Hyperlipidemia, unspecified; G89.29 Other chronic pain; F19.10 Other psychoactive substance abuse, uncomplicated; F17.200 Nicotine dependence, unspecified, uncomplicated; F32.9 Major depressive disorder, single episode, unspecified; F41.9 Anxiety disorder, unspecified; Z79.01 Long term (current) use of anticoagulants; Z79.02 Long term (current) use of antithrombotics/antiplatelets; Z79.899 Other long term (current) drug therapy; Z95.5 Presence of coronary angioplasty implant and graft; Z86.19 Personal history of other infectious and parasitic diseases; Z79.82 Long term (current) use of aspirin; Z86.718 Personal history of other venous thrombosis and embolism; Z86.14 Personal history of Methicillin resistant Staphylococcus aureus infection; Z98.890 Other specified postprocedural states; Y83.8 Other surgical procedures as the cause of abnormal reaction of the patient, or of later complication, without mention of misadventure at the time of the procedure; X58.XXXD Exposure to other specified factors, subsequent encounter
CPT/HCPCS: 97597; 97605; J7999

== ENCOUNTER 2019-12-23 13:05 | Day surgery (SDC) | payer MEDICAID ==
[2019-12-23] MEDS ORDERED: LIDOcaine 2% 5ml jelly ONE (13:34)
== END 2019-12-23 15:26 | disposition home or self-care (01) ==
LOC: WOUND CARE 13:05
PROVIDERS: ATTEND Nurse Practitioner
DX: T81.89XD Other complications of procedures, not elsewhere classified, subsequent encounter (principal); E11.621 Type 2 diabetes mellitus with foot ulcer; L89.892 Pressure ulcer of other site, stage 2; I83.225 Varicose veins of left lower extremity with both ulcer other part of foot and inflammation; L97.525 Non-pressure chronic ulcer of other part of left foot with muscle involvement without evidence of necrosis; E11.622 Type 2 diabetes mellitus with other skin ulcer; L98.492 Non-pressure chronic ulcer of skin of other sites with fat layer exposed; S31.109D Unspecified open wound of abdominal wall, unspecified quadrant without penetration into peritoneal cavity, subsequent encounter; L84 Corns and callosities; M10.9 Gout, unspecified; G60.9 Hereditary and idiopathic neuropathy, unspecified; E11.22 Type 2 diabetes mellitus with diabetic chronic kidney disease; N18.4 Chronic kidney disease, stage 4 (severe); I25.2 Old myocardial infarction; G89.29 Other chronic pain; E78.5 Hyperlipidemia, unspecified; E11.40 Type 2 diabetes mellitus with diabetic neuropathy, unspecified; B19.20 Unspecified viral hepatitis C without hepatic coma; I25.10 Atherosclerotic heart disease of native coronary artery without angina pectoris; F41.9 Anxiety disorder, unspecified; F19.10 Other psychoactive substance abuse, uncomplicated; F32.9 Major depressive disorder, single episode, unspecified; F17.200 Nicotine dependence, unspecified, uncomplicated; Z79.899 Other long term (current) drug therapy; Z79.01 Long term (current) use of anticoagulants; Z79.82 Long term (current) use of aspirin; Z98.890 Other specified postprocedural states; Z79.02 Long term (current) use of antithrombotics/antiplatelets; Z86.14 Personal history of Methicillin resistant Staphylococcus aureus infection; Z95.5 Presence of coronary angioplasty implant and graft; Z86.19 Personal history of other infectious and parasitic diseases; Z86.718 Personal history of other venous thrombosis and embolism; Z90.49 Acquired absence of other specified parts of digestive tract; X58.XXXD Exposure to other specified factors, subsequent encounter; Y83.8 Other surgical procedures as the cause of abnormal reaction of the patient, or of later complication, without mention of misadventure at the time of the procedure
CPT/HCPCS: 97597; 97598

== ENCOUNTER 2019-12-26 13:14 | Day surgery (SDC) | payer MEDICAID ==
[2019-12-26] MEDS ORDERED: LIDOcaine 2% 5ml jelly ONE (15:20)
== END 2019-12-26 16:21 | disposition home or self-care (01) ==
LOC: WOUND CARE 13:14
PROVIDERS: ATTEND Nurse Practitioner
DX: T81.89XD Other complications of procedures, not elsewhere classified, subsequent encounter (principal); E11.621 Type 2 diabetes mellitus with foot ulcer; L89.892 Pressure ulcer of other site, stage 2; I83.225 Varicose veins of left lower extremity with both ulcer other part of foot and inflammation; L97.525 Non-pressure chronic ulcer of other part of left foot with muscle involvement without evidence of necrosis; E11.622 Type 2 diabetes mellitus with other skin ulcer; L98.492 Non-pressure chronic ulcer of skin of other sites with fat layer exposed; S31.109D Unspecified open wound of abdominal wall, unspecified quadrant without penetration into peritoneal cavity, subsequent encounter; L84 Corns and callosities; M10.9 Gout, unspecified; G60.9 Hereditary and idiopathic neuropathy, unspecified; E11.22 Type 2 diabetes mellitus with diabetic chronic kidney disease; N18.4 Chronic kidney disease, stage 4 (severe); I25.2 Old myocardial infarction; G89.29 Other chronic pain; E78.5 Hyperlipidemia, unspecified; E11.40 Type 2 diabetes mellitus with diabetic neuropathy, unspecified; B19.20 Unspecified viral hepatitis C without hepatic coma; I25.10 Atherosclerotic heart disease of native coronary artery without angina pectoris; F41.9 Anxiety disorder, unspecified; F19.10 Other psychoactive substance abuse, uncomplicated; F32.9 Major depressive disorder, single episode, unspecified; F17.200 Nicotine dependence, unspecified, uncomplicated; Z79.899 Other long term (current) drug therapy; Z79.01 Long term (current) use of anticoagulants; Z79.82 Long term (current) use of aspirin; Z98.890 Other specified postprocedural states; Z79.02 Long term (current) use of antithrombotics/antiplatelets; Z86.14 Personal history of Methicillin resistant Staphylococcus aureus infection; Z95.5 Presence of coronary angioplasty implant and graft; Z86.19 Personal history of other infectious and parasitic diseases; Z86.718 Personal history of other venous thrombosis and embolism; Z90.49 Acquired absence of other specified parts of digestive tract; X58.XXXD Exposure to other specified factors, subsequent encounter; Y83.8 Other surgical procedures as the cause of abnormal reaction of the patient, or of later complication, without mention of misadventure at the time of the procedure
CPT/HCPCS: 97605

== ENCOUNTER 2019-12-30 14:30 | Day surgery (SDC) | payer MEDICAID ==
[~2019-12-30 14:30] MED LIST changes: -CLIN-5 PO
[2019-12-30] MEDS ORDERED: LIDOcaine 2% 5ml jelly ONE ×2 (14:41)
[2019-12-30] MEDS ORDERED: nystatin/triamcinolone cream 15gm TP ONE (15:08)
[2019-12-30] MEDS ORDERED: hydrocortisone 1% cream 28gm TP ONE (15:08)
== END 2019-12-30 15:47 | disposition home or self-care (01) ==
LOC: WOUND CARE 14:30
PROVIDERS: ATTEND Nurse Practitioner
DX: T81.89XD Other complications of procedures, not elsewhere classified, subsequent encounter (principal); E11.621 Type 2 diabetes mellitus with foot ulcer; L89.892 Pressure ulcer of other site, stage 2; I83.225 Varicose veins of left lower extremity with both ulcer other part of foot and inflammation; L97.525 Non-pressure chronic ulcer of other part of left foot with muscle involvement without evidence of necrosis; E11.622 Type 2 diabetes mellitus with other skin ulcer; L98.492 Non-pressure chronic ulcer of skin of other sites with fat layer exposed; S31.109D Unspecified open wound of abdominal wall, unspecified quadrant without penetration into peritoneal cavity, subsequent encounter; L84 Corns and callosities; I12.9 Hypertensive chronic kidney disease with stage 1 through stage 4 chronic kidney disease, or unspecified chronic kidney disease; E11.22 Type 2 diabetes mellitus with diabetic chronic kidney disease; N18.3 Chronic kidney disease, stage 3 (moderate); E11.40 Type 2 diabetes mellitus with diabetic neuropathy, unspecified; G60.9 Hereditary and idiopathic neuropathy, unspecified; I25.10 Atherosclerotic heart disease of native coronary artery without angina pectoris; M10.9 Gout, unspecified; I25.2 Old myocardial infarction; E78.5 Hyperlipidemia, unspecified; G89.29 Other chronic pain; F19.10 Other psychoactive substance abuse, uncomplicated; F17.200 Nicotine dependence, unspecified, uncomplicated; F32.9 Major depressive disorder, single episode, unspecified; F41.9 Anxiety disorder, unspecified; Z79.01 Long term (current) use of anticoagulants; Z79.02 Long term (current) use of antithrombotics/antiplatelets; Z79.899 Other long term (current) drug therapy; Z95.5 Presence of coronary angioplasty implant and graft; Z86.19 Personal history of other infectious and parasitic diseases; Z79.82 Long term (current) use of aspirin; Z86.718 Personal history of other venous thrombosis and embolism; Z86.14 Personal history of Methicillin resistant Staphylococcus aureus infection; Z98.890 Other specified postprocedural states; Y83.8 Other surgical procedures as the cause of abnormal reaction of the patient, or of later complication, without mention of misadventure at the time of the procedure; X58.XXXD Exposure to other specified factors, subsequent encounter
CPT/HCPCS: 97597; 97598; J7999

== ENCOUNTER 2020-01-02 13:45 | Day surgery (SDC) | payer MEDICAID ==
[2020-01-02] MEDS ORDERED: LIDOcaine 2% 5ml jelly ONE (14:53)
[2020-01-02] MEDS ORDERED: nystatin/triamcinolone cream 15gm TP ONE (15:09)
[2020-01-02] MEDS ORDERED: hydrocortisone 1% cream 28gm TP ONE (15:09)
== END 2020-01-02 16:07 | disposition home or self-care (01) ==
LOC: WOUND CARE 13:45
PROVIDERS: ATTEND Nurse Practitioner
DX: T81.89XD Other complications of procedures, not elsewhere classified, subsequent encounter (principal); E11.621 Type 2 diabetes mellitus with foot ulcer; L89.892 Pressure ulcer of other site, stage 2; I83.225 Varicose veins of left lower extremity with both ulcer other part of foot and inflammation; L97.525 Non-pressure chronic ulcer of other part of left foot with muscle involvement without evidence of necrosis; E11.622 Type 2 diabetes mellitus with other skin ulcer; L98.492 Non-pressure chronic ulcer of skin of other sites with fat layer exposed; S31.109D Unspecified open wound of abdominal wall, unspecified quadrant without penetration into peritoneal cavity, subsequent encounter; L84 Corns and callosities; I12.9 Hypertensive chronic kidney disease with stage 1 through stage 4 chronic kidney disease, or unspecified chronic kidney disease; E11.22 Type 2 diabetes mellitus with diabetic chronic kidney disease; N18.3 Chronic kidney disease, stage 3 (moderate); E11.40 Type 2 diabetes mellitus with diabetic neuropathy, unspecified; G60.9 Hereditary and idiopathic neuropathy, unspecified; I25.10 Atherosclerotic heart disease of native coronary artery without angina pectoris; M10.9 Gout, unspecified; I25.2 Old myocardial infarction; E78.5 Hyperlipidemia, unspecified; G89.29 Other chronic pain; F19.10 Other psychoactive substance abuse, uncomplicated; F17.200 Nicotine dependence, unspecified, uncomplicated; F32.9 Major depressive disorder, single episode, unspecified; F41.9 Anxiety disorder, unspecified; Z79.01 Long term (current) use of anticoagulants; Z79.02 Long term (current) use of antithrombotics/antiplatelets; Z79.899 Other long term (current) drug therapy; Z95.5 Presence of coronary angioplasty implant and graft; Z86.19 Personal history of other infectious and parasitic diseases; Z79.82 Long term (current) use of aspirin; Z86.718 Personal history of other venous thrombosis and embolism; Z86.14 Personal history of Methicillin resistant Staphylococcus aureus infection; Z98.890 Other specified postprocedural states; Y83.8 Other surgical procedures as the cause of abnormal reaction of the patient, or of later complication, without mention of misadventure at the time of the procedure; X58.XXXD Exposure to other specified factors, subsequent encounter
CPT/HCPCS: 97597; 97598; J7999

== ENCOUNTER 2020-01-06 12:42 | Day surgery (SDC) | payer MEDICAID ==
[2020-01-06] MEDS ORDERED: LIDOcaine 2% 5ml jelly ONE (14:45)
== END 2020-01-06 16:30 | disposition home or self-care (01) ==
LOC: WOUND CARE 12:42
PROVIDERS: ATTEND Nurse Practitioner
DX: T81.89XD Other complications of procedures, not elsewhere classified, subsequent encounter (principal); E11.621 Type 2 diabetes mellitus with foot ulcer; L89.892 Pressure ulcer of other site, stage 2; I83.225 Varicose veins of left lower extremity with both ulcer other part of foot and inflammation; L97.525 Non-pressure chronic ulcer of other part of left foot with muscle involvement without evidence of necrosis; E11.622 Type 2 diabetes mellitus with other skin ulcer; L98.492 Non-pressure chronic ulcer of skin of other sites with fat layer exposed; S31.109D Unspecified open wound of abdominal wall, unspecified quadrant without penetration into peritoneal cavity, subsequent encounter; L84 Corns and callosities; I12.9 Hypertensive chronic kidney disease with stage 1 through stage 4 chronic kidney disease, or unspecified chronic kidney disease; E11.22 Type 2 diabetes mellitus with diabetic chronic kidney disease; N18.3 Chronic kidney disease, stage 3 (moderate); E11.40 Type 2 diabetes mellitus with diabetic neuropathy, unspecified; G60.9 Hereditary and idiopathic neuropathy, unspecified; I25.10 Atherosclerotic heart disease of native coronary artery without angina pectoris; M10.9 Gout, unspecified; I25.2 Old myocardial infarction; E78.5 Hyperlipidemia, unspecified; G89.29 Other chronic pain; F19.10 Other psychoactive substance abuse, uncomplicated; F17.200 Nicotine dependence, unspecified, uncomplicated; F32.9 Major depressive disorder, single episode, unspecified; F41.9 Anxiety disorder, unspecified; Z79.01 Long term (current) use of anticoagulants; Z79.02 Long term (current) use of antithrombotics/antiplatelets; Z79.899 Other long term (current) drug therapy; Z95.5 Presence of coronary angioplasty implant and graft; Z86.19 Personal history of other infectious and parasitic diseases; Z79.82 Long term (current) use of aspirin; Z86.718 Personal history of other venous thrombosis and embolism; Z86.14 Personal history of Methicillin resistant Staphylococcus aureus infection; Z98.890 Other specified postprocedural states; Y83.8 Other surgical procedures as the cause of abnormal reaction of the patient, or of later complication, without mention of misadventure at the time of the procedure; X58.XXXD Exposure to other specified factors, subsequent encounter
CPT/HCPCS: 97597; 97598

== ENCOUNTER 2020-01-09 14:00 | Day surgery (SDC) | payer MEDICAID ==
[2020-01-09] MEDS ORDERED: LIDOcaine 2% 5ml jelly ONE (14:56)
== END 2020-01-09 16:19 | disposition home or self-care (01) ==
LOC: WOUND CARE 14:00
PROVIDERS: ATTEND Nurse Practitioner
DX: T81.89XD Other complications of procedures, not elsewhere classified, subsequent encounter (principal); E11.621 Type 2 diabetes mellitus with foot ulcer; L89.892 Pressure ulcer of other site, stage 2; I83.225 Varicose veins of left lower extremity with both ulcer other part of foot and inflammation; L97.525 Non-pressure chronic ulcer of other part of left foot with muscle involvement without evidence of necrosis; E11.622 Type 2 diabetes mellitus with other skin ulcer; L98.492 Non-pressure chronic ulcer of skin of other sites with fat layer exposed; S31.109D Unspecified open wound of abdominal wall, unspecified quadrant without penetration into peritoneal cavity, subsequent encounter; L84 Corns and callosities; E11.22 Type 2 diabetes mellitus with diabetic chronic kidney disease; I12.9 Hypertensive chronic kidney disease with stage 1 through stage 4 chronic kidney disease, or unspecified chronic kidney disease; N18.3 Chronic kidney disease, stage 3 (moderate); E11.40 Type 2 diabetes mellitus with diabetic neuropathy, unspecified; G60.9 Hereditary and idiopathic neuropathy, unspecified; I25.10 Atherosclerotic heart disease of native coronary artery without angina pectoris; M10.9 Gout, unspecified; I25.2 Old myocardial infarction; E78.5 Hyperlipidemia, unspecified; G89.29 Other chronic pain; F32.9 Major depressive disorder, single episode, unspecified; F41.9 Anxiety disorder, unspecified; F19.10 Other psychoactive substance abuse, uncomplicated; F17.200 Nicotine dependence, unspecified, uncomplicated; Z79.01 Long term (current) use of anticoagulants; Z79.02 Long term (current) use of antithrombotics/antiplatelets; Z79.899 Other long term (current) drug therapy; Z95.5 Presence of coronary angioplasty implant and graft; Z86.19 Personal history of other infectious and parasitic diseases; Z79.82 Long term (current) use of aspirin; Z86.718 Personal history of other venous thrombosis and embolism; Z86.14 Personal history of Methicillin resistant Staphylococcus aureus infection; Z98.890 Other specified postprocedural states; Y83.8 Other surgical procedures as the cause of abnormal reaction of the patient, or of later complication, without mention of misadventure at the time of the procedure; X58.XXXD Exposure to other specified factors, subsequent encounter
CPT/HCPCS: 97597; 97598

== ENCOUNTER 2020-01-13 13:19 | Day surgery (SDC) | payer MEDICAID ==
[2020-01-13] MEDS ORDERED: LIDOcaine 2% 5ml jelly ONE (14:02)
== END 2020-01-13 15:46 | disposition home or self-care (01) ==
LOC: WOUND CARE 13:19
PROVIDERS: ATTEND Nurse Practitioner
DX: T81.89XD Other complications of procedures, not elsewhere classified, subsequent encounter (principal); E11.621 Type 2 diabetes mellitus with foot ulcer; I83.225 Varicose veins of left lower extremity with both ulcer other part of foot and inflammation; L97.525 Non-pressure chronic ulcer of other part of left foot with muscle involvement without evidence of necrosis; E11.622 Type 2 diabetes mellitus with other skin ulcer; L98.492 Non-pressure chronic ulcer of skin of other sites with fat layer exposed; S31.109D Unspecified open wound of abdominal wall, unspecified quadrant without penetration into peritoneal cavity, subsequent encounter; L84 Corns and callosities; I12.9 Hypertensive chronic kidney disease with stage 1 through stage 4 chronic kidney disease, or unspecified chronic kidney disease; E11.22 Type 2 diabetes mellitus with diabetic chronic kidney disease; N18.3 Chronic kidney disease, stage 3 (moderate); E11.40 Type 2 diabetes mellitus with diabetic neuropathy, unspecified; G60.9 Hereditary and idiopathic neuropathy, unspecified; I25.10 Atherosclerotic heart disease of native coronary artery without angina pectoris; M10.9 Gout, unspecified; I25.2 Old myocardial infarction; E78.5 Hyperlipidemia, unspecified; G89.29 Other chronic pain; F19.10 Other psychoactive substance abuse, uncomplicated; F17.200 Nicotine dependence, unspecified, uncomplicated; F32.9 Major depressive disorder, single episode, unspecified; F41.9 Anxiety disorder, unspecified; Z79.01 Long term (current) use of anticoagulants; Z79.02 Long term (current) use of antithrombotics/antiplatelets; Z79.899 Other long term (current) drug therapy; Z95.5 Presence of coronary angioplasty implant and graft; Z86.19 Personal history of other infectious and parasitic diseases; Z79.82 Long term (current) use of aspirin; Z86.718 Personal history of other venous thrombosis and embolism; Z86.14 Personal history of Methicillin resistant Staphylococcus aureus infection; Z98.890 Other specified postprocedural states; Y83.8 Other surgical procedures as the cause of abnormal reaction of the patient, or of later complication, without mention of misadventure at the time of the procedure; X58.XXXD Exposure to other specified factors, subsequent encounter
CPT/HCPCS: 97597

== ENCOUNTER 2020-01-16 13:40 | Day surgery (SDC) | payer MEDICAID ==
[2020-01-16] MEDS ORDERED: LIDOcaine 2% 5ml jelly ONE (14:22)
[2020-01-16] MEDS ORDERED: nystatin/triamcinolone cream 15gm TP ONE (14:38)
[2020-01-16] MEDS ORDERED: hydrocortisone 1% cream 28gm TP ONE (14:38)
== END 2020-01-16 15:32 | disposition home or self-care (01) ==
LOC: WOUND CARE 13:40
PROVIDERS: ATTEND Nurse Practitioner
DX: T81.89XD Other complications of procedures, not elsewhere classified, subsequent encounter (principal); E11.621 Type 2 diabetes mellitus with foot ulcer; I83.225 Varicose veins of left lower extremity with both ulcer other part of foot and inflammation; L97.525 Non-pressure chronic ulcer of other part of left foot with muscle involvement without evidence of necrosis; E11.622 Type 2 diabetes mellitus with other skin ulcer; L98.492 Non-pressure chronic ulcer of skin of other sites with fat layer exposed; S31.109D Unspecified open wound of abdominal wall, unspecified quadrant without penetration into peritoneal cavity, subsequent encounter; L84 Corns and callosities; I12.9 Hypertensive chronic kidney disease with stage 1 through stage 4 chronic kidney disease, or unspecified chronic kidney disease; E11.22 Type 2 diabetes mellitus with diabetic chronic kidney disease; N18.3 Chronic kidney disease, stage 3 (moderate); E11.40 Type 2 diabetes mellitus with diabetic neuropathy, unspecified; G60.9 Hereditary and idiopathic neuropathy, unspecified; I25.10 Atherosclerotic heart disease of native coronary artery without angina pectoris; M10.9 Gout, unspecified; I25.2 Old myocardial infarction; E78.5 Hyperlipidemia, unspecified; G89.29 Other chronic pain; F19.10 Other psychoactive substance abuse, uncomplicated; F17.200 Nicotine dependence, unspecified, uncomplicated; F32.9 Major depressive disorder, single episode, unspecified; F41.9 Anxiety disorder, unspecified; Z79.01 Long term (current) use of anticoagulants; Z79.02 Long term (current) use of antithrombotics/antiplatelets; Z79.899 Other long term (current) drug therapy; Z95.5 Presence of coronary angioplasty implant and graft; Z86.19 Personal history of other infectious and parasitic diseases; Z79.82 Long term (current) use of aspirin; Z86.718 Personal history of other venous thrombosis and embolism; Z86.14 Personal history of Methicillin resistant Staphylococcus aureus infection; Z98.890 Other specified postprocedural states; Y83.8 Other surgical procedures as the cause of abnormal reaction of the patient, or of later complication, without mention of misadventure at the time of the procedure; X58.XXXD Exposure to other specified factors, subsequent encounter
CPT/HCPCS: 97597; J7999

== ENCOUNTER 2020-01-20 13:20 | Day surgery (SDC) | payer MEDICAID ==
[2020-01-20] MEDS ORDERED: LIDOcaine 2% 5ml jelly ONE ×2 (14:06→14:08)
== END 2020-01-20 15:22 | disposition home or self-care (01) ==
LOC: WOUND CARE 13:20
PROVIDERS: ATTEND Nurse Practitioner
DX: T81.89XD Other complications of procedures, not elsewhere classified, subsequent encounter (principal); E11.621 Type 2 diabetes mellitus with foot ulcer; I83.225 Varicose veins of left lower extremity with both ulcer other part of foot and inflammation; L97.525 Non-pressure chronic ulcer of other part of left foot with muscle involvement without evidence of necrosis; E11.622 Type 2 diabetes mellitus with other skin ulcer; L98.492 Non-pressure chronic ulcer of skin of other sites with fat layer exposed; S31.109D Unspecified open wound of abdominal wall, unspecified quadrant without penetration into peritoneal cavity, subsequent encounter; L84 Corns and callosities; I12.9 Hypertensive chronic kidney disease with stage 1 through stage 4 chronic kidney disease, or unspecified chronic kidney disease; E11.22 Type 2 diabetes mellitus with diabetic chronic kidney disease; N18.3 Chronic kidney disease, stage 3 (moderate); E11.40 Type 2 diabetes mellitus with diabetic neuropathy, unspecified; G60.9 Hereditary and idiopathic neuropathy, unspecified; I25.10 Atherosclerotic heart disease of native coronary artery without angina pectoris; M10.9 Gout, unspecified; I25.2 Old myocardial infarction; E78.5 Hyperlipidemia, unspecified; G89.29 Other chronic pain; F19.10 Other psychoactive substance abuse, uncomplicated; F17.200 Nicotine dependence, unspecified, uncomplicated; F32.9 Major depressive disorder, single episode, unspecified; F41.9 Anxiety disorder, unspecified; Z79.01 Long term (current) use of anticoagulants; Z79.02 Long term (current) use of antithrombotics/antiplatelets; Z79.899 Other long term (current) drug therapy; Z95.5 Presence of coronary angioplasty implant and graft; Z86.19 Personal history of other infectious and parasitic diseases; Z79.82 Long term (current) use of aspirin; Z86.718 Personal history of other venous thrombosis and embolism; Z86.14 Personal history of Methicillin resistant Staphylococcus aureus infection; Z98.890 Other specified postprocedural states; Y83.8 Other surgical procedures as the cause of abnormal reaction of the patient, or of later complication, without mention of misadventure at the time of the procedure; X58.XXXD Exposure to other specified factors, subsequent encounter
CPT/HCPCS: 97597

== ENCOUNTER 2020-01-23 13:24 | Outpatient (CLI) | payer MEDICAID | END 2020-01-23 14:21 | disposition home or self-care (01) | LOC: WOUND CARE 13:24 | PROVIDERS: ATTEND Nurse Practitioner | DX: T81.89XD Other complications of procedures, not elsewhere classified, subsequent encounter (principal); E11.621 Type 2 diabetes mellitus with foot ulcer; I83.225 Varicose veins of left lower extremity with both ulcer other part of foot and inflammation; L97.525 Non-pressure chronic ulcer of other part of left foot with muscle involvement without evidence of necrosis; E11.622 Type 2 diabetes mellitus with other skin ulcer; L98.492 Non-pressure chronic ulcer of skin of other sites with fat layer exposed; S31.109D Unspecified open wound of abdominal wall, unspecified quadrant without penetration into peritoneal cavity, subsequent encounter; L84 Corns and callosities; E11.22 Type 2 diabetes mellitus with diabetic chronic kidney disease; I12.9 Hypertensive chronic kidney disease with stage 1 through stage 4 chronic kidney disease, or unspecified chronic kidney disease; N18.4 Chronic kidney disease, stage 4 (severe); E11.40 Type 2 diabetes mellitus with diabetic neuropathy, unspecified; G60.9 Hereditary and idiopathic neuropathy, unspecified; I25.10 Atherosclerotic heart disease of native coronary artery without angina pectoris; M10.9 Gout, unspecified; I25.2 Old myocardial infarction; E78.5 Hyperlipidemia, unspecified; G89.29 Other chronic pain; F19.10 Other psychoactive substance abuse, uncomplicated; F17.200 Nicotine dependence, unspecified, uncomplicated; F32.9 Major depressive disorder, single episode, unspecified; F41.9 Anxiety disorder, unspecified; Z79.01 Long term (current) use of anticoagulants; Z79.02 Long term (current) use of antithrombotics/antiplatelets; Z79.899 Other long term (current) drug therapy; Z95.5 Presence of coronary angioplasty implant and graft; Z86.19 Personal history of other infectious and parasitic diseases; Z79.82 Long term (current) use of aspirin; Z86.718 Personal history of other venous thrombosis and embolism; Z86.14 Personal history of Methicillin resistant Staphylococcus aureus infection; Z98.890 Other specified postprocedural states; Y83.8 Other surgical procedures as the cause of abnormal reaction of the patient, or of later complication, without mention of misadventure at the time of the procedure; X58.XXXD Exposure to other specified factors, subsequent encounter | CPT/HCPCS: G0463 ==

== ENCOUNTER 2020-01-30 13:15 | Day surgery (SDC) | payer MEDICAID ==
[2020-01-30] MEDS ORDERED: LIDOcaine 2% 5ml jelly ONE (13:52)
== END 2020-01-30 15:49 | disposition home or self-care (01) ==
LOC: WOUND CARE 13:15
PROVIDERS: ATTEND Nurse Practitioner
DX: T81.89XD Other complications of procedures, not elsewhere classified, subsequent encounter (principal); E11.621 Type 2 diabetes mellitus with foot ulcer; I83.225 Varicose veins of left lower extremity with both ulcer other part of foot and inflammation; L97.525 Non-pressure chronic ulcer of other part of left foot with muscle involvement without evidence of necrosis; E11.622 Type 2 diabetes mellitus with other skin ulcer; L98.492 Non-pressure chronic ulcer of skin of other sites with fat layer exposed; S31.109D Unspecified open wound of abdominal wall, unspecified quadrant without penetration into peritoneal cavity, subsequent encounter; L84 Corns and callosities; E11.22 Type 2 diabetes mellitus with diabetic chronic kidney disease; I12.9 Hypertensive chronic kidney disease with stage 1 through stage 4 chronic kidney disease, or unspecified chronic kidney disease; E11.40 Type 2 diabetes mellitus with diabetic neuropathy, unspecified; I25.10 Atherosclerotic heart disease of native coronary artery without angina pectoris; M10.9 Gout, unspecified; I25.2 Old myocardial infarction; E78.5 Hyperlipidemia, unspecified; G89.29 Other chronic pain; F19.10 Other psychoactive substance abuse, uncomplicated; F17.200 Nicotine dependence, unspecified, uncomplicated; F32.9 Major depressive disorder, single episode, unspecified; F41.9 Anxiety disorder, unspecified; Z79.01 Long term (current) use of anticoagulants; Z79.02 Long term (current) use of antithrombotics/antiplatelets; Z79.899 Other long term (current) drug therapy; Z95.5 Presence of coronary angioplasty implant and graft; Z86.19 Personal history of other infectious and parasitic diseases; Z79.82 Long term (current) use of aspirin; Z86.718 Personal history of other venous thrombosis and embolism; Z86.14 Personal history of Methicillin resistant Staphylococcus aureus infection; Z98.890 Other specified postprocedural states; Y83.8 Other surgical procedures as the cause of abnormal reaction of the patient, or of later complication, without mention of misadventure at the time of the procedure; X58.XXXD Exposure to other specified factors, subsequent encounter
CPT/HCPCS: 97597

== ENCOUNTER 2020-02-03 13:00 | Day surgery (SDC) | payer MEDICAID ==
[2020-02-03] MEDS ORDERED: LIDOcaine 2% 5ml jelly ONE (13:26)
[2020-02-03] MEDS ORDERED: nystatin/triamcinolone cream 15gm TP ONE (14:24)
[2020-02-03] MEDS ORDERED: hydrocortisone 1% cream 28gm TP ONE (14:24)
== END 2020-02-03 14:45 | disposition home or self-care (01) ==
LOC: WOUND CARE 13:00
PROVIDERS: ATTEND Nurse Practitioner
DX: T81.89XD Other complications of procedures, not elsewhere classified, subsequent encounter (principal); E11.621 Type 2 diabetes mellitus with foot ulcer; I83.225 Varicose veins of left lower extremity with both ulcer other part of foot and inflammation; L97.525 Non-pressure chronic ulcer of other part of left foot with muscle involvement without evidence of necrosis; E11.622 Type 2 diabetes mellitus with other skin ulcer; L98.492 Non-pressure chronic ulcer of skin of other sites with fat layer exposed; S31.109D Unspecified open wound of abdominal wall, unspecified quadrant without penetration into peritoneal cavity, subsequent encounter; L84 Corns and callosities; E11.22 Type 2 diabetes mellitus with diabetic chronic kidney disease; I12.9 Hypertensive chronic kidney disease with stage 1 through stage 4 chronic kidney disease, or unspecified chronic kidney disease; N18.4 Chronic kidney disease, stage 4 (severe); E11.40 Type 2 diabetes mellitus with diabetic neuropathy, unspecified; I25.10 Atherosclerotic heart disease of native coronary artery without angina pectoris; M10.9 Gout, unspecified; I25.2 Old myocardial infarction; E78.5 Hyperlipidemia, unspecified; G89.29 Other chronic pain; F19.10 Other psychoactive substance abuse, uncomplicated; F17.200 Nicotine dependence, unspecified, uncomplicated; F32.9 Major depressive disorder, single episode, unspecified; F41.9 Anxiety disorder, unspecified; Z79.01 Long term (current) use of anticoagulants; Z79.02 Long term (current) use of antithrombotics/antiplatelets; Z79.899 Other long term (current) drug therapy; Z95.5 Presence of coronary angioplasty implant and graft; Z86.19 Personal history of other infectious and parasitic diseases; Z79.82 Long term (current) use of aspirin; Z86.718 Personal history of other venous thrombosis and embolism; Z86.14 Personal history of Methicillin resistant Staphylococcus aureus infection; Z98.890 Other specified postprocedural states; Y83.8 Other surgical procedures as the cause of abnormal reaction of the patient, or of later complication, without mention of misadventure at the time of the procedure; X58.XXXD Exposure to other specified factors, subsequent encounter
CPT/HCPCS: 97597; J7999

== ENCOUNTER 2020-02-06 13:03 | Day surgery (SDC) | payer MEDICAID ==
[2020-02-06] MEDS ORDERED: Dakins solution (1/4 strength) 473ml solution TP SCH (14:28)
[2020-02-06] MEDS ORDERED: LIDOcaine 2% 5ml jelly ONE (14:32)
[2020-02-06] MEDS ORDERED: nystatin 15 GM powder TP ONE (15:09)
== END 2020-02-06 16:00 | disposition home or self-care (01) ==
LOC: WOUND CARE 13:03
PROVIDERS: ATTEND Nurse Practitioner
DX: T81.89XD Other complications of procedures, not elsewhere classified, subsequent encounter (principal); E11.621 Type 2 diabetes mellitus with foot ulcer; I83.225 Varicose veins of left lower extremity with both ulcer other part of foot and inflammation; L97.525 Non-pressure chronic ulcer of other part of left foot with muscle involvement without evidence of necrosis; E11.622 Type 2 diabetes mellitus with other skin ulcer; L98.492 Non-pressure chronic ulcer of skin of other sites with fat layer exposed; S31.109D Unspecified open wound of abdominal wall, unspecified quadrant without penetration into peritoneal cavity, subsequent encounter; L84 Corns and callosities; E11.22 Type 2 diabetes mellitus with diabetic chronic kidney disease; I12.9 Hypertensive chronic kidney disease with stage 1 through stage 4 chronic kidney disease, or unspecified chronic kidney disease; N18.4 Chronic kidney disease, stage 4 (severe); E11.40 Type 2 diabetes mellitus with diabetic neuropathy, unspecified; I25.10 Atherosclerotic heart disease of native coronary artery without angina pectoris; M10.9 Gout, unspecified; I25.2 Old myocardial infarction; E78.5 Hyperlipidemia, unspecified; G89.29 Other chronic pain; F19.10 Other psychoactive substance abuse, uncomplicated; F17.200 Nicotine dependence, unspecified, uncomplicated; F32.9 Major depressive disorder, single episode, unspecified; F41.9 Anxiety disorder, unspecified; Z79.01 Long term (current) use of anticoagulants; Z79.02 Long term (current) use of antithrombotics/antiplatelets; Z79.899 Other long term (current) drug therapy; Z95.5 Presence of coronary angioplasty implant and graft; Z86.19 Personal history of other infectious and parasitic diseases; Z79.82 Long term (current) use of aspirin; Z86.718 Personal history of other venous thrombosis and embolism; Z86.14 Personal history of Methicillin resistant Staphylococcus aureus infection; Z98.890 Other specified postprocedural states; Y83.8 Other surgical procedures as the cause of abnormal reaction of the patient, or of later complication, without mention of misadventure at the time of the procedure; X58.XXXD Exposure to other specified factors, subsequent encounter
CPT/HCPCS: 97597

== ENCOUNTER 2020-02-10 13:15 | Day surgery (SDC) | payer MEDICAID ==
[2020-02-10] MEDS ORDERED: LIDOcaine 2% 5ml jelly ONE ×2 (13:22)
[2020-02-10] MEDS ORDERED: nystatin 15 GM powder TP ONE (13:45)
[2020-02-10] MEDS ORDERED: nystatin/triamcinolone cream 15gm TP ONE (13:46)
[2020-02-10] MEDS ORDERED: hydrocortisone 1% cream 28gm TP ONE (13:46)
== END 2020-02-10 15:00 | disposition home or self-care (01) ==
LOC: WOUND CARE 13:15
PROVIDERS: ATTEND Nurse Practitioner
DX: T81.89XD Other complications of procedures, not elsewhere classified, subsequent encounter (principal); E11.621 Type 2 diabetes mellitus with foot ulcer; I83.225 Varicose veins of left lower extremity with both ulcer other part of foot and inflammation; L97.525 Non-pressure chronic ulcer of other part of left foot with muscle involvement without evidence of necrosis; E11.622 Type 2 diabetes mellitus with other skin ulcer; L98.492 Non-pressure chronic ulcer of skin of other sites with fat layer exposed; S31.109D Unspecified open wound of abdominal wall, unspecified quadrant without penetration into peritoneal cavity, subsequent encounter; L84 Corns and callosities; E11.22 Type 2 diabetes mellitus with diabetic chronic kidney disease; I12.9 Hypertensive chronic kidney disease with stage 1 through stage 4 chronic kidney disease, or unspecified chronic kidney disease; N18.4 Chronic kidney disease, stage 4 (severe); I25.10 Atherosclerotic heart disease of native coronary artery without angina pectoris; M10.9 Gout, unspecified; I25.2 Old myocardial infarction; E78.5 Hyperlipidemia, unspecified; G89.29 Other chronic pain; F19.10 Other psychoactive substance abuse, uncomplicated; F17.200 Nicotine dependence, unspecified, uncomplicated; F32.9 Major depressive disorder, single episode, unspecified; F41.9 Anxiety disorder, unspecified; Z79.01 Long term (current) use of anticoagulants; Z79.02 Long term (current) use of antithrombotics/antiplatelets; Z79.899 Other long term (current) drug therapy; Z95.5 Presence of coronary angioplasty implant and graft; Z86.19 Personal history of other infectious and parasitic diseases; Z79.82 Long term (current) use of aspirin; Z86.718 Personal history of other venous thrombosis and embolism; Z86.14 Personal history of Methicillin resistant Staphylococcus aureus infection; Z98.890 Other specified postprocedural states; Y83.8 Other surgical procedures as the cause of abnormal reaction of the patient, or of later complication, without mention of misadventure at the time of the procedure; X58.XXXD Exposure to other specified factors, subsequent encounter
CPT/HCPCS: 97597; J7999

== ENCOUNTER 2020-02-13 13:05 | Outpatient (CLI) | payer MEDICAID ==
[2020-02-13] MEDS ORDERED: LIDOcaine 2% 5ml jelly ONE ×2 (13:55)
[2020-02-13] MEDS ORDERED: Dakins solution (1/4 strength) 473ml solution TP STA (14:39)
[2020-02-13] MEDS ORDERED: nystatin 15 GM powder TP ONE (15:00)
== END 2020-02-13 15:30 | disposition home or self-care (01) ==
LOC: WOUND CARE 13:05
PROVIDERS: ATTEND Nurse Practitioner
DX: T81.89XD Other complications of procedures, not elsewhere classified, subsequent encounter (principal); E11.621 Type 2 diabetes mellitus with foot ulcer; I83.225 Varicose veins of left lower extremity with both ulcer other part of foot and inflammation; L97.525 Non-pressure chronic ulcer of other part of left foot with muscle involvement without evidence of necrosis; E11.622 Type 2 diabetes mellitus with other skin ulcer; L98.492 Non-pressure chronic ulcer of skin of other sites with fat layer exposed; S31.109D Unspecified open wound of abdominal wall, unspecified quadrant without penetration into peritoneal cavity, subsequent encounter; L84 Corns and callosities; E11.22 Type 2 diabetes mellitus with diabetic chronic kidney disease; I12.9 Hypertensive chronic kidney disease with stage 1 through stage 4 chronic kidney disease, or unspecified chronic kidney disease; N18.4 Chronic kidney disease, stage 4 (severe); E11.40 Type 2 diabetes mellitus with diabetic neuropathy, unspecified; I25.10 Atherosclerotic heart disease of native coronary artery without angina pectoris; M10.9 Gout, unspecified; I25.2 Old myocardial infarction; E78.5 Hyperlipidemia, unspecified; G89.29 Other chronic pain; F19.10 Other psychoactive substance abuse, uncomplicated; F17.200 Nicotine dependence, unspecified, uncomplicated; F32.9 Major depressive disorder, single episode, unspecified; F41.9 Anxiety disorder, unspecified; Z79.01 Long term (current) use of anticoagulants; Z79.02 Long term (current) use of antithrombotics/antiplatelets; Z79.899 Other long term (current) drug therapy; Z95.5 Presence of coronary angioplasty implant and graft; Z86.19 Personal history of other infectious and parasitic diseases; Z79.82 Long term (current) use of aspirin; Z86.718 Personal history of other venous thrombosis and embolism; Z86.14 Personal history of Methicillin resistant Staphylococcus aureus infection; Z98.890 Other specified postprocedural states; Y83.8 Other surgical procedures as the cause of abnormal reaction of the patient, or of later complication, without mention of misadventure at the time of the procedure; X58.XXXD Exposure to other specified factors, subsequent encounter
CPT/HCPCS: 97597

== ENCOUNTER → 2020-02-20 | Outpatient (CLI) | payer MEDICAID ==
[~2020-02-20] MED LIST changes: +ONDA4TAB6 PO; +ONDA8TAB13 PO; +nystatin 15 GM powder TP ONE
== END | disposition home or self-care (01) ==
LOC: EDSTATUS 13:00 → WOUND CARE 13:05
PROVIDERS: ATTEND Nurse Practitioner
DX: Z53.21 Procedure and treatment not carried out due to patient leaving prior to being seen by health care provider (principal)

== ENCOUNTER 2020-02-24 13:13 | Outpatient (CLI) | payer MEDICAID ==
[~2020-02-24 13:13] MED LIST changes: -ONDA4TAB6 PO; -ONDA8TAB13 PO; -nystatin 15 GM powder TP ONE
[2020-02-24] MEDS ORDERED: LIDOcaine 2% 5ml jelly ONE (13:34)
[2020-02-24] MEDS ORDERED: Dakins solution (1/4 strength) 473ml solution TP ONE (13:40)
[2020-02-24] MEDS ORDERED: hydrocortisone 1% cream 28gm TP ONE (13:47)
[2020-02-24] MEDS ORDERED: nystatin/triamcinolone cream 15gm TP ONE (13:48)
== END 2020-02-24 23:59 | disposition home or self-care (01) ==
LOC: WOUND CARE 13:13
PROVIDERS: ATTEND Nurse Practitioner
DX: T81.89XD Other complications of procedures, not elsewhere classified, subsequent encounter (principal); E11.621 Type 2 diabetes mellitus with foot ulcer; I83.225 Varicose veins of left lower extremity with both ulcer other part of foot and inflammation; L97.525 Non-pressure chronic ulcer of other part of left foot with muscle involvement without evidence of necrosis; E11.622 Type 2 diabetes mellitus with other skin ulcer; L98.492 Non-pressure chronic ulcer of skin of other sites with fat layer exposed; S31.109D Unspecified open wound of abdominal wall, unspecified quadrant without penetration into peritoneal cavity, subsequent encounter; L84 Corns and callosities; E11.22 Type 2 diabetes mellitus with diabetic chronic kidney disease; I12.9 Hypertensive chronic kidney disease with stage 1 through stage 4 chronic kidney disease, or unspecified chronic kidney disease; N18.4 Chronic kidney disease, stage 4 (severe); E11.40 Type 2 diabetes mellitus with diabetic neuropathy, unspecified; I25.10 Atherosclerotic heart disease of native coronary artery without angina pectoris; M10.9 Gout, unspecified; I25.2 Old myocardial infarction; E78.5 Hyperlipidemia, unspecified; G89.29 Other chronic pain; F19.10 Other psychoactive substance abuse, uncomplicated; F17.200 Nicotine dependence, unspecified, uncomplicated; F32.9 Major depressive disorder, single episode, unspecified; F41.9 Anxiety disorder, unspecified; Z79.01 Long term (current) use of anticoagulants; Z79.02 Long term (current) use of antithrombotics/antiplatelets; Z79.899 Other long term (current) drug therapy; Z95.5 Presence of coronary angioplasty implant and graft; Z86.19 Personal history of other infectious and parasitic diseases; Z79.82 Long term (current) use of aspirin; Z86.718 Personal history of other venous thrombosis and embolism; Z86.14 Personal history of Methicillin resistant Staphylococcus aureus infection; Z98.890 Other specified postprocedural states; Y83.8 Other surgical procedures as the cause of abnormal reaction of the patient, or of later complication, without mention of misadventure at the time of the procedure; X58.XXXD Exposure to other specified factors, subsequent encounter
CPT/HCPCS: 11042; 97597; 97605; J7999

== ENCOUNTER → 2020-02-27 | Outpatient (CLI) | payer MEDICAID ==
[~2020-02-27] MED LIST changes: +LIDOcaine 2% 5ml jelly ONE; +hydrocortisone 1% cream 28gm TP ONE; +nystatin 15 GM powder TP ONE; +nystatin/triamcinolone cream 15gm TP ONE
== END | disposition home or self-care (01) ==
LOC: EDSTATUS 13:00 → WOUND CARE 13:05
PROVIDERS: ATTEND Nurse Practitioner
DX: T81.89XD Other complications of procedures, not elsewhere classified, subsequent encounter (principal); E11.621 Type 2 diabetes mellitus with foot ulcer; I83.225 Varicose veins of left lower extremity with both ulcer other part of foot and inflammation; L97.525 Non-pressure chronic ulcer of other part of left foot with muscle involvement without evidence of necrosis; E11.622 Type 2 diabetes mellitus with other skin ulcer; L98.492 Non-pressure chronic ulcer of skin of other sites with fat layer exposed; S31.109D Unspecified open wound of abdominal wall, unspecified quadrant without penetration into peritoneal cavity, subsequent encounter; L84 Corns and callosities; E11.22 Type 2 diabetes mellitus with diabetic chronic kidney disease; I12.9 Hypertensive chronic kidney disease with stage 1 through stage 4 chronic kidney disease, or unspecified chronic kidney disease; N18.4 Chronic kidney disease, stage 4 (severe); E11.40 Type 2 diabetes mellitus with diabetic neuropathy, unspecified; I25.10 Atherosclerotic heart disease of native coronary artery without angina pectoris; M10.9 Gout, unspecified; I25.2 Old myocardial infarction; E78.5 Hyperlipidemia, unspecified; G89.29 Other chronic pain; F19.10 Other psychoactive substance abuse, uncomplicated; F17.200 Nicotine dependence, unspecified, uncomplicated; F32.9 Major depressive disorder, single episode, unspecified; F41.9 Anxiety disorder, unspecified; Z79.01 Long term (current) use of anticoagulants; Z79.02 Long term (current) use of antithrombotics/antiplatelets; Z79.899 Other long term (current) drug therapy; Z95.5 Presence of coronary angioplasty implant and graft; Z86.19 Personal history of other infectious and parasitic diseases; Z79.82 Long term (current) use of aspirin; Z86.718 Personal history of other venous thrombosis and embolism; Z86.14 Personal history of Methicillin resistant Staphylococcus aureus infection; Z98.890 Other specified postprocedural states; Y83.8 Other surgical procedures as the cause of abnormal reaction of the patient, or of later complication, without mention of misadventure at the time of the procedure; X58.XXXD Exposure to other specified factors, subsequent encounter
CPT/HCPCS: 11042; 11043; J7999

== ENCOUNTER 2020-03-02 13:07 | Outpatient (CLI) | payer MEDICAID ==
[~2020-03-02 13:07] MED LIST changes: -LIDOcaine 2% 5ml jelly ONE; -hydrocortisone 1% cream 28gm TP ONE; -nystatin 15 GM powder TP ONE; -nystatin/triamcinolone cream 15gm TP ONE
[2020-03-02] MEDS ORDERED: Dakins solution (1/4 strength) 473ml solution TP STA (13:22)
[2020-03-02] MEDS ORDERED: LIDOcaine 2% 5ml jelly ONE (13:36)
[2020-03-02] MEDS ORDERED: nystatin/triamcinolone cream 15gm TP ONE (14:31)
[2020-03-02] MEDS ORDERED: hydrocortisone 1% cream 28gm TP ONE (14:31)
== END 2020-03-02 23:59 | disposition home or self-care (01) ==
LOC: WOUND CARE 13:07
PROVIDERS: ATTEND Nurse Practitioner
DX: T81.89XD Other complications of procedures, not elsewhere classified, subsequent encounter (principal); E11.621 Type 2 diabetes mellitus with foot ulcer; I83.225 Varicose veins of left lower extremity with both ulcer other part of foot and inflammation; L97.525 Non-pressure chronic ulcer of other part of left foot with muscle involvement without evidence of necrosis; E11.622 Type 2 diabetes mellitus with other skin ulcer; L98.492 Non-pressure chronic ulcer of skin of other sites with fat layer exposed; S31.109D Unspecified open wound of abdominal wall, unspecified quadrant without penetration into peritoneal cavity, subsequent encounter; L84 Corns and callosities; E11.22 Type 2 diabetes mellitus with diabetic chronic kidney disease; I12.9 Hypertensive chronic kidney disease with stage 1 through stage 4 chronic kidney disease, or unspecified chronic kidney disease; N18.4 Chronic kidney disease, stage 4 (severe); E11.40 Type 2 diabetes mellitus with diabetic neuropathy, unspecified; I25.10 Atherosclerotic heart disease of native coronary artery without angina pectoris; M10.9 Gout, unspecified; I25.2 Old myocardial infarction; E78.5 Hyperlipidemia, unspecified; G89.29 Other chronic pain; F19.10 Other psychoactive substance abuse, uncomplicated; F17.200 Nicotine dependence, unspecified, uncomplicated; F32.9 Major depressive disorder, single episode, unspecified; F41.9 Anxiety disorder, unspecified; Z79.01 Long term (current) use of anticoagulants; Z79.02 Long term (current) use of antithrombotics/antiplatelets; Z79.899 Other long term (current) drug therapy; Z95.5 Presence of coronary angioplasty implant and graft; Z86.19 Personal history of other infectious and parasitic diseases; Z79.82 Long term (current) use of aspirin; Z86.718 Personal history of other venous thrombosis and embolism; Z86.14 Personal history of Methicillin resistant Staphylococcus aureus infection; Z98.890 Other specified postprocedural states; Y83.8 Other surgical procedures as the cause of abnormal reaction of the patient, or of later complication, without mention of misadventure at the time of the procedure; X58.XXXD Exposure to other specified factors, subsequent encounter
CPT/HCPCS: 11042; 97597; J7999

== ENCOUNTER 2020-03-08 13:04 | Outpatient (CLI) | payer MEDICAID ==
[2020-03-08] MEDS ORDERED: LIDOcaine 2% 5ml jelly ONE (13:42)
[2020-03-08] MEDS ORDERED: hydrocortisone 1% cream 28gm TP ONE (14:36)
[2020-03-08] MEDS ORDERED: nystatin/triamcinolone cream 15gm TP ONE (14:36)
== END 2020-03-08 23:59 | disposition home or self-care (01) ==
LOC: WOUND CARE 13:04
PROVIDERS: ATTEND Nurse Practitioner
DX: T81.89XD Other complications of procedures, not elsewhere classified, subsequent encounter (principal); E11.621 Type 2 diabetes mellitus with foot ulcer; I83.225 Varicose veins of left lower extremity with both ulcer other part of foot and inflammation; L97.525 Non-pressure chronic ulcer of other part of left foot with muscle involvement without evidence of necrosis; E11.622 Type 2 diabetes mellitus with other skin ulcer; L98.492 Non-pressure chronic ulcer of skin of other sites with fat layer exposed; S31.109D Unspecified open wound of abdominal wall, unspecified quadrant without penetration into peritoneal cavity, subsequent encounter; L84 Corns and callosities; E11.22 Type 2 diabetes mellitus with diabetic chronic kidney disease; I12.9 Hypertensive chronic kidney disease with stage 1 through stage 4 chronic kidney disease, or unspecified chronic kidney disease; N18.4 Chronic kidney disease, stage 4 (severe); E11.40 Type 2 diabetes mellitus with diabetic neuropathy, unspecified; I25.10 Atherosclerotic heart disease of native coronary artery without angina pectoris; M10.9 Gout, unspecified; I25.2 Old myocardial infarction; E78.5 Hyperlipidemia, unspecified; G89.29 Other chronic pain; F19.10 Other psychoactive substance abuse, uncomplicated; F17.200 Nicotine dependence, unspecified, uncomplicated; F32.9 Major depressive disorder, single episode, unspecified; F41.9 Anxiety disorder, unspecified; Z79.01 Long term (current) use of anticoagulants; Z79.02 Long term (current) use of antithrombotics/antiplatelets; Z79.899 Other long term (current) drug therapy; Z95.5 Presence of coronary angioplasty implant and graft; Z86.19 Personal history of other infectious and parasitic diseases; Z79.82 Long term (current) use of aspirin; Z86.718 Personal history of other venous thrombosis and embolism; Z86.14 Personal history of Methicillin resistant Staphylococcus aureus infection; Z98.890 Other specified postprocedural states; Y83.8 Other surgical procedures as the cause of abnormal reaction of the patient, or of later complication, without mention of misadventure at the time of the procedure; X58.XXXD Exposure to other specified factors, subsequent encounter
CPT/HCPCS: 97597; J7999

== ENCOUNTER 2020-03-22 12:57 | Emergency (ER) | payer MEDICAID ==
[~2020-03-22] VITALS: Ht 170.2 cm; Wt 100.0 kg
[2020-03-22] MEDS ORDERED: ondansetron 4mg rapidly disintigrating tab PO ONE (14:05)
[2020-03-22 15:02] LABS: CLARITY,URINE SLIGHTLY CLOUDY (Clear); COLOR,URINE YELLOW (Yellow); GLUCOSE, URINE NEGATIVE (Neg); KETONES,URINE NEGATIVE (Neg); LEUKOCYTE ESTERASE ,URINE NEGATIVE (Neg); NITRITES, URINE NEGATIVE (Neg); OCCULT BLOOD,URINE LARGE (Neg); PROTEIN,URINE NEGATIVE (Neg); UA COLLECTION TYPE CLN CATCH MIDSTREAM; URINE HCG NEGATIVE (NEG); UROBILINOGEN,URINE 0.2 E.U/dL (0.2-1.0)
[2020-03-22] MEDS ORDERED: ONDA4TAB6 PO (15:04)
[2020-03-22] MEDS ORDERED: ibuprofen tablet 400 MG TABLET PO ONE (15:10)
[2020-03-22 15:11] LABS: MUCUS STRANDS FEW /LPF (Neg); SQUAMOUS EPITHELIAL CELL,UR MODERATE /LPF (FEW)
[2020-03-22 15:12] LABS: BACTERIA,URINE FEW /HPF (Neg); RBC,URINE 20-50 /HPF (0-2); TRANSITIONAL EPI CELLS,URINE FEW /HPF; WBC,URINE 0-4 /HPF (0-4)
[2020-03-22 15:31] VITALS: BP 132/88
== END 2020-03-22 15:32 | disposition home or self-care (01) ==
LOC: ER 12:59
DX: M79.605 Pain in left leg (principal); R51.9 Headache, unspecified; R11.0 Nausea; R53.1 Weakness; G89.29 Other chronic pain; F41.9 Anxiety disorder, unspecified; F32.9 Major depressive disorder, single episode, unspecified; Z86.69 Personal history of other diseases of the nervous system and sense organs; Z86.19 Personal history of other infectious and parasitic diseases; Z86.718 Personal history of other venous thrombosis and embolism; Z86.14 Personal history of Methicillin resistant Staphylococcus aureus infection; Z90.49 Acquired absence of other specified parts of digestive tract; Z98.890 Other specified postprocedural states; Z72.89 Other problems related to lifestyle; Z88.8 Allergy status to other drugs, medicaments and biological substances; Z79.899 Other long term (current) drug therapy
CPT/HCPCS: 81001; 81025; 93971; 99284

== ENCOUNTER 2020-03-27 07:58 | Emergency (ER) | payer MEDICAID ==
[~2020-03-27] VITALS: Ht 170.2 cm; Wt 90.9 kg
[~2020-03-27 07:58] MED LIST changes: +ONDA4TAB6 PO
[2020-03-27] MEDS ORDERED: normal saline 1000ML IV soln IVB ONE (08:45)
[2020-03-27] MEDS ORDERED: LORazepam 2 mg/ml vial IV ONE (08:45)
[2020-03-27] MEDS ORDERED: haloperidol lactate 5mg/ml inj IM ONE (08:45)
--- NOTE | 2020-03-27 09:19 | NUR ---
Pt medicated as ordered. Pt given warm blankets and lights dimmed.
[2020-03-27 09:26] LABS: BASOPHILS # (AUTO) 0.1 X10'3 (0-0.2); BASOPHILS % (AUTO) 1.1 % (0-1); EOSINOPHILS % (AUTO) 0.3 % (0-6); HEMATOCRIT 40.2 % (35.0-45.0); HEMOGLOBIN 13.8 g/dl (12.0-16.0); LYMPHOCYTES # (AUTO) 2.2 X10'3 (1.1-4.8); MEAN CORPUSCULAR HEMOGLOBIN 28.9 PG (27.0-31.0); MEAN CORPUSCULAR HGB CONC 34.4 g/dL (33.0-36.5); MEAN CORPUSCULAR VOLUME 84.1 FL (78-98); MEAN PLATELET VOLUME 8.4 FL (7.4-10.4); MONOCYTES # (AUTO) 0.6 X10'3 (0-0.9); MONOCYTES % (AUTO) 5.6 % (2-12); NEUTROPHILS # (AUTO) 7.2 X10'3 (1.8-7.7); PLATELET COUNT 298 X10'3 (140-440); RED BLOOD COUNT 4.78 X10'6 (4.20-5.60); RED CELL DISTRIBUTION WIDTH 13.6 % (11.5-14.5); WHITE BLOOD COUNT 10.2 X10'3 (4.5-11.0)
[2020-03-27] MEDS ORDERED: fentaNYL/PF 50MCG/1 ML 2ML syringe IV ONE (09:35)
[2020-03-27 09:40] LABS: ALANINE AMINOTRANSFERASE 36 U/L (12-78); ALBUMIN 3.9 G/DL (3.4-5.0); ALBUMIN/GLOBULIN RATIO 0.8 (1.1-1.5); ALKALINE PHOSPHATASE 99 IU/L (46-116); ANION GAP 12 (8-16); ASPARTATE AMINO TRANSFERASE 26 U/L (10-37); BILIRUBIN,TOTAL 0.4 MG/DL (0.1-1.0); BLOOD UREA NITROGEN 9 MG/DL (7-18); BUN/CREATININE RATIO 9.3 (6.6-38.0); CALCIUM 9.2 MG/DL (8.5-10.1); CHLORIDE 99 MMOL/L (99-107); CREATININE 0.97 MG/DL (0.40-0.90); GLUCOSE 126 MG/DL (70-104); LIPASE 56 U/L (73-393); POTASSIUM 3.4 MMOL/L (3.5-5.1); SODIUM 137 MMOL/L (135-145); TOTAL CARBON DIOXIDE 26.5 MMOL/L (24-32); eGFR 62 ML/MIN
--- NOTE | 2020-03-27 09:40 | NUR ---
Pt still complains of abd pain. Dr. Gonzales aware and entered order for fentanyl.
[2020-03-27] MEDS ORDERED: ONDA8TAB13 PO (10:04)
[2020-03-27 10:22] VITALS: BP 147/84
== END 2020-03-27 10:23 | disposition home or self-care (01) ==
LOC: ER 07:59
DX: R11.2 Nausea with vomiting, unspecified (principal); G89.29 Other chronic pain; F41.9 Anxiety disorder, unspecified; F32.9 Major depressive disorder, single episode, unspecified; Z86.69 Personal history of other diseases of the nervous system and sense organs; Z86.19 Personal history of other infectious and parasitic diseases; Z86.718 Personal history of other venous thrombosis and embolism; Z86.14 Personal history of Methicillin resistant Staphylococcus aureus infection; Z90.49 Acquired absence of other specified parts of digestive tract; Z98.890 Other specified postprocedural states; Z72.89 Other problems related to lifestyle; Z88.8 Allergy status to other drugs, medicaments and biological substances; Z88.1 Allergy status to other antibiotic agents; Z79.899 Other long term (current) drug therapy
CPT/HCPCS: 36415; 80053; 83690; 85025; 96361; 96372; 96374; 96375; 99284; J1630; J2060; J3010; J7030

== ENCOUNTER 2020-04-02 12:34 | Outpatient (CLI) | payer MEDICAID ==
[~2020-04-02 12:34] MED LIST changes: +ONDA8TAB13 PO
[2020-04-02] MEDS ORDERED: LIDOcaine 2% 5ml jelly ONE (12:55)
[2020-04-02] MEDS ORDERED: nystatin/triamcinolone cream 15gm TP ONE (13:48)
[2020-04-02] MEDS ORDERED: hydrocortisone 1% cream 28gm TP ONE (13:48)
[2020-04-02] MEDS ORDERED: mupirocin 2% ointment 22GM ONE (13:48)
== END 2020-04-02 23:59 | disposition home or self-care (01) ==
LOC: WOUND CARE 12:34
PROVIDERS: ATTEND Nurse Practitioner
DX: T81.89XD Other complications of procedures, not elsewhere classified, subsequent encounter (principal); E11.621 Type 2 diabetes mellitus with foot ulcer; I83.225 Varicose veins of left lower extremity with both ulcer other part of foot and inflammation; L97.525 Non-pressure chronic ulcer of other part of left foot with muscle involvement without evidence of necrosis; E11.622 Type 2 diabetes mellitus with other skin ulcer; L98.492 Non-pressure chronic ulcer of skin of other sites with fat layer exposed; S31.109D Unspecified open wound of abdominal wall, unspecified quadrant without penetration into peritoneal cavity, subsequent encounter; L84 Corns and callosities; E11.22 Type 2 diabetes mellitus with diabetic chronic kidney disease; I12.9 Hypertensive chronic kidney disease with stage 1 through stage 4 chronic kidney disease, or unspecified chronic kidney disease; N18.4 Chronic kidney disease, stage 4 (severe); E11.40 Type 2 diabetes mellitus with diabetic neuropathy, unspecified; I25.10 Atherosclerotic heart disease of native coronary artery without angina pectoris; M10.9 Gout, unspecified; I25.2 Old myocardial infarction; E78.5 Hyperlipidemia, unspecified; G89.29 Other chronic pain; F19.10 Other psychoactive substance abuse, uncomplicated; F17.200 Nicotine dependence, unspecified, uncomplicated; F32.9 Major depressive disorder, single episode, unspecified; F41.9 Anxiety disorder, unspecified; Z79.01 Long term (current) use of anticoagulants; Z79.02 Long term (current) use of antithrombotics/antiplatelets; Z79.899 Other long term (current) drug therapy; Z95.5 Presence of coronary angioplasty implant and graft; Z86.19 Personal history of other infectious and parasitic diseases; Z79.82 Long term (current) use of aspirin; Z86.718 Personal history of other venous thrombosis and embolism; Z86.14 Personal history of Methicillin resistant Staphylococcus aureus infection; Z98.890 Other specified postprocedural states; Y83.8 Other surgical procedures as the cause of abnormal reaction of the patient, or of later complication, without mention of misadventure at the time of the procedure; X58.XXXD Exposure to other specified factors, subsequent encounter
CPT/HCPCS: G0463; J7999

== ENCOUNTER 2020-04-09 13:04 | Outpatient (CLI) | payer MEDICAID ==
[2020-04-09] MEDS ORDERED: LIDOcaine 2% 5ml jelly ONE ×2 (13:46)
[2020-04-09] MEDS ORDERED: hydrocortisone 1% cream 28gm TP ONE (14:00)
[2020-04-09] MEDS ORDERED: nystatin/triamcinolone cream 15gm TP ONE (14:00)
== END 2020-04-09 23:59 | disposition home or self-care (01) ==
LOC: WOUND CARE 13:04
PROVIDERS: ATTEND Nurse Practitioner
DX: T81.89XD Other complications of procedures, not elsewhere classified, subsequent encounter (principal); E11.621 Type 2 diabetes mellitus with foot ulcer; I83.225 Varicose veins of left lower extremity with both ulcer other part of foot and inflammation; L97.522 Non-pressure chronic ulcer of other part of left foot with fat layer exposed; E11.622 Type 2 diabetes mellitus with other skin ulcer; L98.492 Non-pressure chronic ulcer of skin of other sites with fat layer exposed; S31.109D Unspecified open wound of abdominal wall, unspecified quadrant without penetration into peritoneal cavity, subsequent encounter; L84 Corns and callosities; E11.22 Type 2 diabetes mellitus with diabetic chronic kidney disease; I12.9 Hypertensive chronic kidney disease with stage 1 through stage 4 chronic kidney disease, or unspecified chronic kidney disease; N18.4 Chronic kidney disease, stage 4 (severe); E11.40 Type 2 diabetes mellitus with diabetic neuropathy, unspecified; I25.10 Atherosclerotic heart disease of native coronary artery without angina pectoris; M10.9 Gout, unspecified; I25.2 Old myocardial infarction; E78.5 Hyperlipidemia, unspecified; G89.29 Other chronic pain; F19.10 Other psychoactive substance abuse, uncomplicated; F17.200 Nicotine dependence, unspecified, uncomplicated; F32.9 Major depressive disorder, single episode, unspecified; F41.9 Anxiety disorder, unspecified; Z79.01 Long term (current) use of anticoagulants; Z79.02 Long term (current) use of antithrombotics/antiplatelets; Z79.899 Other long term (current) drug therapy; Z95.5 Presence of coronary angioplasty implant and graft; Z86.19 Personal history of other infectious and parasitic diseases; Z79.82 Long term (current) use of aspirin; Z86.718 Personal history of other venous thrombosis and embolism; Z86.14 Personal history of Methicillin resistant Staphylococcus aureus infection; Z98.890 Other specified postprocedural states; Y83.8 Other surgical procedures as the cause of abnormal reaction of the patient, or of later complication, without mention of misadventure at the time of the procedure; X58.XXXD Exposure to other specified factors, subsequent encounter
CPT/HCPCS: G0463; J7999

== ENCOUNTER 2020-04-13 13:05 | Outpatient (CLI) | payer MEDICAID ==
[2020-04-13] MEDS ORDERED: LIDOcaine 2% 5ml jelly ONE (13:27)
[2020-04-13] MEDS ORDERED: LIDOcaine 4% (40 mg/ml) topical solution 50ml ONE (14:01)
[2020-04-13] MEDS ORDERED: gentamicin 0.1% topical ointment 15gm TP ONE (14:44)
[2020-04-13] MEDS ORDERED: hydrocortisone 1% cream 28gm TP ONE (14:44)
[2020-04-13] MEDS ORDERED: nystatin/triamcinolone cream 15gm TP ONE (14:44)
== END 2020-04-13 23:59 | disposition home or self-care (01) ==
LOC: WOUND CARE 13:05
PROVIDERS: ATTEND Nurse Practitioner
DX: T81.89XD Other complications of procedures, not elsewhere classified, subsequent encounter (principal); E11.622 Type 2 diabetes mellitus with other skin ulcer; L98.492 Non-pressure chronic ulcer of skin of other sites with fat layer exposed; E11.621 Type 2 diabetes mellitus with foot ulcer; I83.225 Varicose veins of left lower extremity with both ulcer other part of foot and inflammation; L97.522 Non-pressure chronic ulcer of other part of left foot with fat layer exposed; S31.109D Unspecified open wound of abdominal wall, unspecified quadrant without penetration into peritoneal cavity, subsequent encounter; E11.22 Type 2 diabetes mellitus with diabetic chronic kidney disease; I12.9 Hypertensive chronic kidney disease with stage 1 through stage 4 chronic kidney disease, or unspecified chronic kidney disease; N18.4 Chronic kidney disease, stage 4 (severe); L84 Corns and callosities; E11.40 Type 2 diabetes mellitus with diabetic neuropathy, unspecified; I25.10 Atherosclerotic heart disease of native coronary artery without angina pectoris; M10.9 Gout, unspecified; I25.2 Old myocardial infarction; E78.5 Hyperlipidemia, unspecified; G89.29 Other chronic pain; F19.10 Other psychoactive substance abuse, uncomplicated; F17.200 Nicotine dependence, unspecified, uncomplicated; F32.9 Major depressive disorder, single episode, unspecified; F41.9 Anxiety disorder, unspecified; Z79.01 Long term (current) use of anticoagulants; Z79.02 Long term (current) use of antithrombotics/antiplatelets; Z79.899 Other long term (current) drug therapy; Z95.5 Presence of coronary angioplasty implant and graft; Z86.19 Personal history of other infectious and parasitic diseases; Z79.82 Long term (current) use of aspirin; Z86.718 Personal history of other venous thrombosis and embolism; Z86.14 Personal history of Methicillin resistant Staphylococcus aureus infection; Z98.890 Other specified postprocedural states; Y83.8 Other surgical procedures as the cause of abnormal reaction of the patient, or of later complication, without mention of misadventure at the time of the procedure; X58.XXXD Exposure to other specified factors, subsequent encounter
CPT/HCPCS: 11042; J7999

== ENCOUNTER 2020-04-20 13:24 | Outpatient (CLI) | payer MEDICAID ==
[2020-04-20] MEDS ORDERED: nystatin/triamcinolone cream 15gm TP ONE (15:12)
[2020-04-20] MEDS ORDERED: hydrocortisone 1% cream 28gm TP ONE (15:12)
== END 2020-04-20 23:59 | disposition home or self-care (01) ==
LOC: WOUND CARE 13:24
PROVIDERS: ATTEND Nurse Practitioner
DX: T81.89XD Other complications of procedures, not elsewhere classified, subsequent encounter (principal); E11.622 Type 2 diabetes mellitus with other skin ulcer; L98.492 Non-pressure chronic ulcer of skin of other sites with fat layer exposed; E11.621 Type 2 diabetes mellitus with foot ulcer; I83.225 Varicose veins of left lower extremity with both ulcer other part of foot and inflammation; L97.522 Non-pressure chronic ulcer of other part of left foot with fat layer exposed; S31.109D Unspecified open wound of abdominal wall, unspecified quadrant without penetration into peritoneal cavity, subsequent encounter; E11.22 Type 2 diabetes mellitus with diabetic chronic kidney disease; I12.9 Hypertensive chronic kidney disease with stage 1 through stage 4 chronic kidney disease, or unspecified chronic kidney disease; N18.4 Chronic kidney disease, stage 4 (severe); L84 Corns and callosities; E11.40 Type 2 diabetes mellitus with diabetic neuropathy, unspecified; I25.10 Atherosclerotic heart disease of native coronary artery without angina pectoris; M10.9 Gout, unspecified; I25.2 Old myocardial infarction; E78.5 Hyperlipidemia, unspecified; G89.29 Other chronic pain; F19.10 Other psychoactive substance abuse, uncomplicated; F17.200 Nicotine dependence, unspecified, uncomplicated; F32.9 Major depressive disorder, single episode, unspecified; F41.9 Anxiety disorder, unspecified; Z79.01 Long term (current) use of anticoagulants; Z79.02 Long term (current) use of antithrombotics/antiplatelets; Z79.899 Other long term (current) drug therapy; Z95.5 Presence of coronary angioplasty implant and graft; Z86.19 Personal history of other infectious and parasitic diseases; Z79.82 Long term (current) use of aspirin; Z86.718 Personal history of other venous thrombosis and embolism; Z86.14 Personal history of Methicillin resistant Staphylococcus aureus infection; Z98.890 Other specified postprocedural states; Y83.8 Other surgical procedures as the cause of abnormal reaction of the patient, or of later complication, without mention of misadventure at the time of the procedure; X58.XXXD Exposure to other specified factors, subsequent encounter
CPT/HCPCS: G0463; J7999

== ENCOUNTER → 2020-07-09 | Outpatient (CLI) | payer MEDICAID ==
[~2020-07-09] MED LIST changes: +LIDOcaine 2% 5ml jelly ONE
== END | disposition home or self-care (01) ==
LOC: EDSTATUS 07-02 14:00 → WOUND CARE 14:21
PROVIDERS: ATTEND Nurse Practitioner
DX: T81.89XD Other complications of procedures, not elsewhere classified, subsequent encounter (principal); E11.621 Type 2 diabetes mellitus with foot ulcer; I83.225 Varicose veins of left lower extremity with both ulcer other part of foot and inflammation; L97.522 Non-pressure chronic ulcer of other part of left foot with fat layer exposed; E11.622 Type 2 diabetes mellitus with other skin ulcer; L98.492 Non-pressure chronic ulcer of skin of other sites with fat layer exposed; S31.109D Unspecified open wound of abdominal wall, unspecified quadrant without penetration into peritoneal cavity, subsequent encounter; L84 Corns and callosities; E11.22 Type 2 diabetes mellitus with diabetic chronic kidney disease; I12.9 Hypertensive chronic kidney disease with stage 1 through stage 4 chronic kidney disease, or unspecified chronic kidney disease; N18.4 Chronic kidney disease, stage 4 (severe); E11.40 Type 2 diabetes mellitus with diabetic neuropathy, unspecified; I25.10 Atherosclerotic heart disease of native coronary artery without angina pectoris; M10.9 Gout, unspecified; I25.2 Old myocardial infarction; E78.5 Hyperlipidemia, unspecified; G89.29 Other chronic pain; F19.10 Other psychoactive substance abuse, uncomplicated; F17.200 Nicotine dependence, unspecified, uncomplicated; F32.9 Major depressive disorder, single episode, unspecified; F41.9 Anxiety disorder, unspecified; Z79.01 Long term (current) use of anticoagulants; Z79.02 Long term (current) use of antithrombotics/antiplatelets; Z79.899 Other long term (current) drug therapy; Z95.5 Presence of coronary angioplasty implant and graft; Z86.19 Personal history of other infectious and parasitic diseases; Z79.82 Long term (current) use of aspirin; Z86.718 Personal history of other venous thrombosis and embolism; Z86.14 Personal history of Methicillin resistant Staphylococcus aureus infection; Z98.890 Other specified postprocedural states; Y83.8 Other surgical procedures as the cause of abnormal reaction of the patient, or of later complication, without mention of misadventure at the time of the procedure; X58.XXXD Exposure to other specified factors, subsequent encounter
CPT/HCPCS: 11042

== ENCOUNTER 2020-08-05 13:36 | Inpatient (IN) | payer MEDICAID ==
[~2020-08-05] VITALS: Ht 170.2 cm; Wt 88.6 kg
[~2020-08-05 13:36] MED LIST changes: -LIDOcaine 2% 5ml jelly ONE
[2020-08-05] MEDS ORDERED: acetaminophen 325mg tablet PO ONE (15:15)
[2020-08-05] MEDS ORDERED: fentaNYL/PF 50MCG/1 ML 2ML syringe IV ONE (15:15)
[2020-08-05] MEDS ORDERED: normal saline 1000ML IV soln IVB ONE (15:15)
[2020-08-05] MEDS ORDERED: vancomycin/NS 1 GM ADD-VANTAGE 250 ML IV ONE (15:15)
--- NOTE | 2020-08-05 15:24 | NUR ---
[facility] CALLED BACK AT [address]
[2020-08-05 15:55] LABS: BASOPHILS % (AUTO) 0.2 % (0-1); EOSINOPHILS # (AUTO) 0.1 X10'3 (0-0.9); EOSINOPHILS % (AUTO) 0.7 % (0-6); HEMATOCRIT 42.9 % (35.0-45.0); HEMOGLOBIN 14.4 g/dl (12.0-16.0); LYMPHOCYTES # (AUTO) 2.7 X10'3 (1.1-4.8); LYMPHOCYTES % (AUTO) 17.3 % (21-51); MEAN CORPUSCULAR HEMOGLOBIN 29.3 PG (27.0-31.0); MEAN CORPUSCULAR HGB CONC 33.5 g/dL (33.0-36.5); MEAN CORPUSCULAR VOLUME 87.6 FL (78-98); MEAN PLATELET VOLUME 9.1 FL (7.4-10.4); MONOCYTES % (AUTO) 6.3 % (2-12); NEUTROPHILS # (AUTO) 11.7 X10'3 (1.8-7.7); NEUTROPHILS % (AUTO) 75.5 % (42-75); PLATELET COUNT 254 X10'3 (140-440); RED CELL DISTRIBUTION WIDTH 13.3 % (11.5-14.5); WHITE BLOOD COUNT 15.5 X10'3 (4.5-11.0)
[2020-08-05 16:07] LABS: ALANINE AMINOTRANSFERASE 15 U/L (12-78); ALBUMIN 3.5 G/DL (3.4-5.0); ALBUMIN/GLOBULIN RATIO 0.7 (1.1-1.5); ALKALINE PHOSPHATASE 89 IU/L (46-116); ANION GAP 14 (8-16); ASPARTATE AMINO TRANSFERASE 12 U/L (10-37); BILIRUBIN,TOTAL 0.3 MG/DL (0.1-1.0); BLOOD UREA NITROGEN 11 MG/DL (7-18); BUN/CREATININE RATIO 16.2 (6.6-38.0); CALCIUM 8.9 MG/DL (8.5-10.1); CHLORIDE 102 MMOL/L (99-107); CREATININE 0.68 MG/DL (0.40-0.90); GLUCOSE 79 MG/DL (70-104); POTASSIUM 3.2 MMOL/L (3.5-5.1); SODIUM 138 MMOL/L (135-145); TOTAL CARBON DIOXIDE 21.7 MMOL/L (24-32); TOTAL PROTEIN 8.8 G/DL (6.4-8.2); eGFR > 90 ML/MIN
--- NOTE | 2020-08-05 16:17 | NUR ---
relieving RN for break, PICC line nurse at bedside, pt now has IV access, truck service technician at bedside
--- NOTE | 2020-08-05 16:27 | NUR ---
1st liter NS infusing, pt refused tylenol "I have already had 12 tabs today", pt asking for more pain medications
[2020-08-05] MEDS ORDERED: morphine 4 MG/ML inj SYRINge IV ONE (16:55)
[2020-08-05] MEDS ORDERED: potassium Cl 20 mEq SR tablet PO ONE (16:55)
[2020-08-05] MEDS ORDERED: ondansetron/PF 4mg/2ml inj IV ONE (16:55)
[2020-08-05] MEDS ORDERED: potassium Cl 20 mEq SR tablet PO PRN ×2 (17:45)
[2020-08-05] MEDS ORDERED: bisacodyl 10mg suppository rectal RC PRN (17:45)
[2020-08-05] MEDS ORDERED: HYDROcodone/acetaminophen 10/325mg tab PO PRN (17:45)
[2020-08-05] MEDS ORDERED: potassium Cl 40MEQ/1/2NS 520ml 520 ML IV PRN ×2 (17:45)
[2020-08-05] MEDS ORDERED: acetaminophen 650mg rectal suppository RC PRN (17:45)
[2020-08-05] MEDS ORDERED: mag hydrox/Alum hydrox/simeth 30ml oral suspension PO PRN (17:45)
[2020-08-05] MEDS ORDERED: ondansetron/PF 4mg/2ml inj IV PRN (17:45)
[2020-08-05] MEDS ORDERED: magnesium 2GM in 50ml NS 50 ML IV PRN (17:45)
[2020-08-05] MEDS ORDERED: metoclopramide 5 mg/ml inj IV PRN (17:45)
[2020-08-05] MEDS ORDERED: magnesium hydroxide 30ml (MOM) UD suspension PO PRN (17:45)
[2020-08-05] MEDS ORDERED: HYDROcodone/acetaminophen 5mg/325mg tablet PO PRN (17:45)
[2020-08-05] MEDS ORDERED: magnesium 4gm in 100ml NS 100 ML IV PRN (17:45)
[2020-08-05] MEDS ORDERED: acetaminophen 325mg tablet PO PRN ×2 (17:45)
[2020-08-05] MEDS ORDERED: magnesium Cl slow-release 64mg tablet PO PRN (17:45)
[2020-08-05] MEDS ORDERED: DOCU-22 PO (17:57)
[2020-08-05] MEDS ORDERED: ALBU8HFA IH (17:57)
[2020-08-05] MEDS ORDERED: iohexol 300mg/ml 100ml inj. ONE (17:58)
[2020-08-05] MEDS ORDERED: tizanidine 4mg tablet PO PRN (18:20)
[2020-08-05] MEDS ORDERED: cloNIDine 0.1 mg tablet PO PRN (18:20)
[2020-08-05] MEDS ORDERED: ibuprofen tablet 400 MG TABLET PO PRN (18:20)
[2020-08-05] MEDS ORDERED: albuterol 2.5 MG/3 ML nebule NEB PRN (18:40)
--- NOTE | 2020-08-05 19:08 | NUR ---
report called to Prudence RN, pt going to room 352
--- NOTE | 2020-08-05 19:09 | NUR ---
REPORT RECEIVED FROM SHANNAN RIVERA IN ER. WAITING FOR PATIENT TO ARRIVE ON THE UNIT.
[2020-08-05] MEDS: HYDROmorphone inj. 0.5 MG/0.5 ML DISP.SYRIN IV PRN (19:13)
--- NOTE | 2020-08-05 19:30 | NUR ---
PATIENT ARRIVED ON THE UNIT AND WILL CONTINUE TO MONITOR.
[2020-08-05] MEDS: K and/or MAG REPLACEMENT MC SCH (20:00)
[2020-08-05] MEDS: buprenorphine/naloxone 8MG-2MG SUBlingual film SL SCH (20:00)
[2020-08-05] MEDS ORDERED: temazepam 15mg capsule PO PRN (21:00)
[2020-08-05] MEDS: traZODone 50mg tablet PO SCH (21:31)
[2020-08-05] MEDS: gabapentin 300mg capsule PO SCH (21:31)
[2020-08-05] MEDS: docusate sod 100mg capsule PO SCH (21:32)
[2020-08-05] MEDS: quetiapine fumarate ER 300mg tablet PO SCH (21:35)
[2020-08-05] MEDS: normal saline 1000ml 1,000 ML IV SCH (21:37)
[2020-08-05] MEDS: traMADol 50MG tablet PO PRN (22:44)
[2020-08-05 23:49] VITALS: BP 126/77
[2020-08-06] MEDS: vancomycin/NS 1 GM ADD-VANTAGE 250 ML IV SCH ×3 (01:22→17:10)
[2020-08-06] MEDS: HYDROmorphone inj. 0.5 MG/0.5 ML DISP.SYRIN IV PRN (01:23)
[2020-08-06] MEDS: normal saline 1000ml 1,000 ML IV SCH ×3 (03:45→21:33)
[2020-08-06] MEDS: traMADol 50MG tablet PO PRN (05:02)
--- NOTE | 2020-08-06 06:28 | NUR ---
Problems reprioritized. Patient report given, questions answered & plan of care reviewed with HAL RN AND PATY RIVERA.
--- NOTE | 2020-08-06 06:59 | NUR ---
Patient in room [facility] 352. I have received report from MIGUEL Simon and had the opportunity to ask questions and assume patient care.
[2020-08-06] MEDS: gabapentin 300mg capsule PO SCH ×3 (07:09→20:48)
[2020-08-06 07:32] VITALS: BP 115/73
[2020-08-06] MEDS: buprenorphine/naloxone 8MG-2MG SUBlingual film SL SCH ×2 (07:55→20:00)
[2020-08-06] MEDS: K and/or MAG REPLACEMENT MC SCH ×2 (08:00→20:00)
[2020-08-06] MEDS: LORazepam 1 MG tablet PO PRN ×2 (08:15→15:59)
[2020-08-06] MEDS: HYDROmorphone 1 mg/ml syringe IV PRN ×4 (08:17→21:31)
[2020-08-06] MEDS: enoxaparin 40mg/0.4ml syringe SUBCUT SCH (08:27)
[2020-08-06 09:39] LABS: BASOPHILS % (AUTO) 0.1 % (0-1); EOSINOPHILS # (AUTO) 0.1 X10'3 (0-0.9); EOSINOPHILS % (AUTO) 0.7 % (0-6); HEMATOCRIT 36.7 % (35.0-45.0); HEMOGLOBIN 12.1 g/dl (12.0-16.0); LYMPHOCYTES # (AUTO) 1.3 X10'3 (1.1-4.8); LYMPHOCYTES % (AUTO) 11.3 % (21-51); MEAN CORPUSCULAR HEMOGLOBIN 29.2 PG (27.0-31.0); MEAN CORPUSCULAR VOLUME 88.6 FL (78-98); MEAN PLATELET VOLUME 8.7 FL (7.4-10.4); MONOCYTES # (AUTO) 0.7 X10'3 (0-0.9); MONOCYTES % (AUTO) 5.8 % (2-12); NEUTROPHILS # (AUTO) 9.6 X10'3 (1.8-7.7); NEUTROPHILS % (AUTO) 82.1 % (42-75); PLATELET COUNT 225 X10'3 (140-440); RED BLOOD COUNT 4.14 X10'6 (4.20-5.60); RED CELL DISTRIBUTION WIDTH 13.3 % (11.5-14.5); WHITE BLOOD COUNT 11.7 X10'3 (4.5-11.0)
[2020-08-06 09:53] LABS: ALANINE AMINOTRANSFERASE 7 U/L (12-78); ALBUMIN 2.7 G/DL (3.4-5.0); ALBUMIN/GLOBULIN RATIO 0.6 (1.1-1.5); ALKALINE PHOSPHATASE 74 IU/L (46-116); ANION GAP 11 (8-16); ASPARTATE AMINO TRANSFERASE 12 U/L (10-37); BILIRUBIN,TOTAL 0.3 MG/DL (0.1-1.0); BLOOD UREA NITROGEN 8 MG/DL (7-18); BUN/CREATININE RATIO 11.8 (6.6-38.0); CALCIUM 8.1 MG/DL (8.5-10.1); CHLORIDE 108 MMOL/L (99-107); CREATININE 0.68 MG/DL (0.40-0.90); GLUCOSE 134 MG/DL (70-104); MAGNESIUM 1.8 MG/DL (1.5-2.4); POTASSIUM 3.9 MMOL/L (3.5-5.1); SODIUM 139 MMOL/L (135-145); TOTAL CARBON DIOXIDE 19.7 MMOL/L (24-32); TOTAL PROTEIN 7.2 G/DL (6.4-8.2); eGFR > 90 ML/MIN
[2020-08-06] MEDS: CefTRIAXone/D5W-Rocephin 1gm 50 ML IV SCH (11:24)
--- NOTE | 2020-08-06 11:39 | NUR ---
Patient was very anxious, agitated and crying coming onto shift at 0630. Pt stated she needed more pain meds. I talked to patient calmly about plan of care and working on adjusting pain meds with the AM doctor when he comes on. Patient eventually calmed down, with some crying. Patient had PO pain meds prior to shift change. I contacted Dr Sands who agreed to 1mg dilaudid (although patient was requesting 2mg) and po ativan. Patient was given these meds at 0820 and has been well controlled with pain and anxiety since. Will continue to monitor.
[2020-08-06 11:45] VITALS: BP 115/65
--- NOTE | 2020-08-06 16:24 | NUR ---
Malnutrition/wound consult: Pt presented to ER with redness and swelling to left lower extremity, admit with left lower extremity cellulitis and nonhealing left ankle wound per EMR. Per WOC, pt has partial thickness wounds to left lower foot and medial lower abdomen. RD technology intern attempted to meet with pt at bedside to discuss appetite, wt loss and high protein education, pt declined. RD technology intern d/w RN recommendation for Kwadwo Shakes BIDLD for wound healing. Pt PO intake on regular diet 50%, only one documented meal. No scaled wt this admit, however prior admit in November 2019 scaled wt 97.97kg, if current wt is accurate this would be 9.5% non-significant wt loss. Pt has no significant edema or significant decrease in muscle strength per EMR. Pt lacks a minimum of two criteria for malnutrition. Will continue to follow and monitor qualifying criteria. Addendum: 08/06/20 at [address] Amended: Links added. Addendum: 08/06/20 at [address] I have reviewed and agree with note by Caustic Cresylate Shift Superintendent. Geraldine Yan RD
[2020-08-06] MEDS ORDERED: VANCOMYCIN LEVEL IV ONE (16:30)
--- NOTE | 2020-08-06 16:30 | NUR ---
Patient requesting more dilaudid for pain control. Dr Sands notified and he has changed the dose to 2mg q4h. Will monitor closely
[2020-08-06] MEDS: JUVEN Smoothie Arginine/Glut./Ca2+Bmb (Juven 19.3pkt) 240ml cup PO SCH (18:00)
--- NOTE | 2020-08-06 18:03 | NUR ---
Report given to Emma RIVERA. All questions answered. Patient resting comfortably
[2020-08-06 20:00] VITALS: BP 125/71
--- NOTE | 2020-08-06 20:45 | NUR ---
pt took hs medications and ibuprofen for pain.
[2020-08-06] MEDS: docusate sod 100mg capsule PO SCH (20:48)
[2020-08-06] MEDS: traZODone 50mg tablet PO SCH (20:48)
[2020-08-06] MEDS: lactobacillus rhamnosus 10,000 MMU CELLS/CAPSULE PO SCH (20:49)
[2020-08-06] MEDS: quetiapine fumarate ER 300mg tablet PO SCH (20:51)
--- NOTE | 2020-08-06 21:30 | NUR ---
medicated for pain with 1mg of diladid tolerated well. no changes at this time.
[2020-08-06 23:34] VITALS: BP 94/58
--- NOTE | 2020-08-07 00:30 | NUR ---
resting eyes closed without s&s of distress.
[2020-08-07] MEDS: VANCOmycin 1250MG/NS 250ml Bag 250 ML IV SCH ×3 (00:55→16:53)
--- NOTE | 2020-08-07 02:00 | NUR ---
medicated for pain then wound care done to ankle wound. pt tolerated well. pt had used brp prior to that.
[2020-08-07] MEDS: HYDROmorphone 1 mg/ml syringe IV PRN ×5 (02:21→20:38)
--- NOTE | 2020-08-07 05:53 | NUR ---
pt awoke in pain and medicated for 11/06. with iv diladid.
--- NOTE | 2020-08-07 06:15 | NUR ---
Problems reprioritized. Patient report given, questions answered & plan of care reviewed with PATY RIVERA. Addendum: 08/07/20 at 0623 by Emma Bashir RN Amended: Links added.
--- NOTE | 2020-08-07 06:50 | NUR ---
Patient in room [facility] 352. I have received report from MIGUEL Carter and had the opportunity to ask questions and assume patient care.
[2020-08-07 07:00] VITALS: BP 118/67
[2020-08-07 07:34] LABS: BASOPHILS % (AUTO) 0.3 % (0-1); EOSINOPHILS # (AUTO) 0.2 X10'3 (0-0.9); EOSINOPHILS % (AUTO) 2.3 % (0-6); HEMATOCRIT 36.2 % (35.0-45.0); LYMPHOCYTES # (AUTO) 2.3 X10'3 (1.1-4.8); LYMPHOCYTES % (AUTO) 26.5 % (21-51); MEAN CORPUSCULAR HEMOGLOBIN 29.7 PG (27.0-31.0); MEAN CORPUSCULAR HGB CONC 33.1 g/dL (33.0-36.5); MEAN CORPUSCULAR VOLUME 89.5 FL (78-98); MEAN PLATELET VOLUME 9.1 FL (7.4-10.4); MONOCYTES # (AUTO) 0.9 X10'3 (0-0.9); MONOCYTES % (AUTO) 9.9 % (2-12); NEUTROPHILS # (AUTO) 5.3 X10'3 (1.8-7.7); PLATELET COUNT 221 X10'3 (140-440); RED BLOOD COUNT 4.04 X10'6 (4.20-5.60); RED CELL DISTRIBUTION WIDTH 13.6 % (11.5-14.5); WHITE BLOOD COUNT 8.6 X10'3 (4.5-11.0)
[2020-08-07] MEDS: buprenorphine/naloxone 8MG-2MG SUBlingual film SL SCH ×2 (08:00→20:00)
[2020-08-07] MEDS: K and/or MAG REPLACEMENT MC SCH ×2 (08:00→20:00)
[2020-08-07] MEDS: JUVEN Smoothie Arginine/Glut./Ca2+Bmb (Juven 19.3pkt) 240ml cup PO SCH ×3 (08:00→18:00)
[2020-08-07 08:04] LABS: ALANINE AMINOTRANSFERASE 11 U/L (12-78); ALBUMIN 2.4 G/DL (3.4-5.0); ALBUMIN/GLOBULIN RATIO 0.6 (1.1-1.5); ALKALINE PHOSPHATASE 67 IU/L (46-116); ANION GAP 11 (8-16); ASPARTATE AMINO TRANSFERASE 8 U/L (10-37); BILIRUBIN,TOTAL 0.3 MG/DL (0.1-1.0); BLOOD UREA NITROGEN 11 MG/DL (7-18); BUN/CREATININE RATIO 19.3 (6.6-38.0); CALCIUM 8.3 MG/DL (8.5-10.1); CHLORIDE 112 MMOL/L (99-107); CREATININE 0.57 MG/DL (0.40-0.90); GLUCOSE 80 MG/DL (70-104); MAGNESIUM 1.9 MG/DL (1.5-2.4); POTASSIUM 3.8 MMOL/L (3.5-5.1); SODIUM 143 MMOL/L (135-145); TOTAL CARBON DIOXIDE 19.7 MMOL/L (24-32); TOTAL PROTEIN 6.6 G/DL (6.4-8.2); eGFR > 90 ML/MIN
[2020-08-07] MEDS: lactobacillus rhamnosus 10,000 MMU CELLS/CAPSULE PO SCH ×2 (08:17→20:34)
[2020-08-07] MEDS: LORazepam 1 MG tablet PO PRN (08:17)
[2020-08-07] MEDS: gabapentin 300mg capsule PO SCH ×3 (08:17→20:37)
[2020-08-07] MEDS: CefTRIAXone/D5W-Rocephin 1gm 50 ML IV SCH (08:18)
[2020-08-07] MEDS: enoxaparin 40mg/0.4ml syringe SUBCUT SCH (08:21)
[2020-08-07] MEDS ORDERED: FLU VACC QS2020-21(6MOS UP)/PF 60 MCG/0.5 ML SYRINGE IMVAC ONE (10:00)
[2020-08-07] MEDS ORDERED: pneumococcal 23-VAL P-sac vacc 25 mcg/0.5ml vial IMVAC ONE (10:00)
[2020-08-07 12:00] VITALS: BP 113/70
[2020-08-07] MEDS: bacitracin 15gm ointment TP SCH ×2 (13:33→20:40)
[2020-08-07] MEDS ORDERED: GADOTERATE MEGLUMINE 7.5 MMOL/15 ML VIAL IV ONE (17:15)
--- NOTE | 2020-08-07 18:27 | NUR ---
Problems reprioritized. Patient report given, questions answered & plan of care reviewed with MIGUEL Carter. Pt pain better controlled this sift.
--- NOTE | 2020-08-07 18:38 | NUR ---
Patient in room [facility] 352. I have received report from TESS RIVERA and had the opportunity to ask questions and assume patient care. Addendum: 08/07/20 at 1839 by Emma Bashir RN Amended: Links added.
[2020-08-07 19:18] VITALS: BP 121/71
--- NOTE | 2020-08-07 20:10 | NUR ---
PT HAD BEEN OFFERED SHOWER SET UP FOR IT. PT STATED SHE DID NOT WANT [place] PAIN MED OR OTHER MEDS TILL AFTER HER SHOWER. COORDINATED THIS WITH UNDERGROUND ROOF BOLTER AND COMPLETE LIEN CHANGE DONE WHILE SHE SHOWERED.
[2020-08-07] MEDS: quetiapine fumarate ER 300mg tablet PO SCH (20:35)
[2020-08-07] MEDS: traZODone 50mg tablet PO SCH (20:37)
[2020-08-07] MEDS: docusate sod 100mg capsule PO SCH (20:40)
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
--- NOTE | 2020-08-07 21:48 | NUR ---
RESTING EYES CLOSED APPEARS COMFORTABLE.
--- NOTE | 2020-08-08 00:17 | NUR ---
resting no changes
[2020-08-08 00:30] VITALS: BP 118/58
[2020-08-08] MEDS ORDERED: VANCOMYCIN LEVEL IV ONE ×2 (00:30→16:30)
[2020-08-08] MEDS: HYDROmorphone 1 mg/ml syringe IV PRN ×5 (00:45→17:03)
--- NOTE | 2020-08-08 01:00 | NUR ---
vanco hung after talking with lab and pharmacy. lab unable to get vanco trough results with blood sent down. pharmacy said hang it and will do trough at 0830 am, am clinical pharmacist to address it.
[2020-08-08] MEDS: VANCOmycin 1250MG/NS 250ml Bag 250 ML IV SCH ×3 (01:23→16:58)
--- NOTE | 2020-08-08 03:01 | NUR ---
resting no changes
--- NOTE | 2020-08-08 04:37 | NUR ---
medicated for pain at this time.
--- NOTE | 2020-08-08 05:09 | NUR ---
lab in drawing am labs for her.
[2020-08-08 06:19] LABS: BASOPHILS % (AUTO) 0.4 % (0-1); EOSINOPHILS # (AUTO) 0.2 X10'3 (0-0.9); EOSINOPHILS % (AUTO) 2.4 % (0-6); HEMATOCRIT 35.7 % (35.0-45.0); HEMOGLOBIN 11.9 g/dl (12.0-16.0); LYMPHOCYTES # (AUTO) 2.8 X10'3 (1.1-4.8); LYMPHOCYTES % (AUTO) 31.8 % (21-51); MEAN CORPUSCULAR HEMOGLOBIN 29.4 PG (27.0-31.0); MEAN CORPUSCULAR HGB CONC 33.3 g/dL (33.0-36.5); MEAN CORPUSCULAR VOLUME 88.3 FL (78-98); MEAN PLATELET VOLUME 8.8 FL (7.4-10.4); MONOCYTES # (AUTO) 0.7 X10'3 (0-0.9); MONOCYTES % (AUTO) 8.2 % (2-12); NEUTROPHILS # (AUTO) 5.1 X10'3 (1.8-7.7); NEUTROPHILS % (AUTO) 57.2 % (42-75); PLATELET COUNT 277 X10'3 (140-440); RED BLOOD COUNT 4.05 X10'6 (4.20-5.60); RED CELL DISTRIBUTION WIDTH 13.5 % (11.5-14.5); WHITE BLOOD COUNT 8.8 X10'3 (4.5-11.0)
[2020-08-08 06:44] LABS: ALANINE AMINOTRANSFERASE 7 U/L (12-78); ALBUMIN 2.5 G/DL (3.4-5.0); ALBUMIN/GLOBULIN RATIO 0.5 (1.1-1.5); ALKALINE PHOSPHATASE 73 IU/L (46-116); ANION GAP 11 (8-16); ASPARTATE AMINO TRANSFERASE 9 U/L (10-37); BILIRUBIN,TOTAL 0.3 MG/DL (0.1-1.0); BLOOD UREA NITROGEN 13 MG/DL (7-18); CHLORIDE 109 MMOL/L (99-107); CREATININE 0.62 MG/DL (0.40-0.90); GLUCOSE 94 MG/DL (70-104); MAGNESIUM 1.9 MG/DL (1.5-2.4); POTASSIUM 3.5 MMOL/L (3.5-5.1); SODIUM 142 MMOL/L (135-145); TOTAL CARBON DIOXIDE 21.7 MMOL/L (24-32); TOTAL PROTEIN 7.1 G/DL (6.4-8.2); eGFR > 90 ML/MIN
--- NOTE | 2020-08-08 06:47 | NUR ---
Problems reprioritized. Patient report given, questions answered & plan of care reviewed with LIZ RIVERA. Addendum: 08/08/20 at 0648 by Emma Bashir RN Amended: Links added.
--- NOTE | 2020-08-08 07:04 | NUR ---
Patient in room [facility] 352. I have received report from Felicity RIVERA and had the opportunity to ask questions and assume patient care.
--- NOTE | 2020-08-08 07:07 | NUR ---
Patient in room [facility] 352. I have received report from MIGUEL TINAJERO and had the opportunity to ask questions and assume patient care.
[2020-08-08] MEDS: gabapentin 300mg capsule PO SCH ×3 (07:30→21:03)
[2020-08-08] MEDS: lactobacillus rhamnosus 10,000 MMU CELLS/CAPSULE PO SCH ×2 (07:30→21:07)
[2020-08-08] MEDS: CefTRIAXone/D5W-Rocephin 1gm 50 ML IV SCH (07:31)
[2020-08-08] MEDS: buprenorphine/naloxone 8MG-2MG SUBlingual film SL SCH ×2 (07:51→20:00)
[2020-08-08 08:00] VITALS: BP 123/66
[2020-08-08] MEDS: K and/or MAG REPLACEMENT MC SCH ×2 (08:00→20:00)
[2020-08-08] MEDS: JUVEN Smoothie Arginine/Glut./Ca2+Bmb (Juven 19.3pkt) 240ml cup PO SCH ×3 (08:00→18:03)
[2020-08-08] MEDS: enoxaparin 40mg/0.4ml syringe SUBCUT SCH (08:59)
[2020-08-08] MEDS: bacitracin 15gm ointment TP SCH ×3 (08:59→21:08)
[2020-08-08 11:00] VITALS: BP 119/73
[2020-08-08] MEDS: LORazepam 1 MG tablet PO PRN (13:02)
--- NOTE | 2020-08-08 16:33 | NUR ---
changed dressing to left posterior heel with gauze and tape.
--- NOTE | 2020-08-08 17:54 | NUR ---
patient medicated q4hrly for pain with effect. dressing cares done . wound consult placed for face as patient using bacitracin with minimal effect. Patient refusing suboxone DR Sands aware. possible DC in am.
--- NOTE | 2020-08-08 18:01 | NUR ---
Problems reprioritized. Patient report given, questions answered & plan of care reviewed with MIGUEL Blevins.
--- NOTE | 2020-08-08 18:02 | NUR ---
Student documentation: I have reviewed and agree with all interventions, assessments performed and documented by ian galicia.
--- NOTE | 2020-08-08 18:34 | NUR ---
Patient in room [facility] 352. I have received report from LIZ RIVERA and had the opportunity to ask questions and assume patient care. Addendum: 08/08/20 at 1834 by Emma Bashir RN Amended: Links added.
[2020-08-08 19:00] VITALS: BP 133/85
--- NOTE | 2020-08-08 21:00 | NUR ---
DC'D FOREARM PIV CATH INTACT. NOTED LEAKING AND PAINFUL AT THE SITE. SLIGHTLY PINK. PT TOLERATED WELL. TEACHING DONE AND WOUND CARE REGARDING IT.
[2020-08-08] MEDS: quetiapine fumarate ER 300mg tablet PO SCH (21:03)
[2020-08-08] MEDS: traZODone 50mg tablet PO SCH (21:06)
[2020-08-08] MEDS: docusate sod 100mg capsule PO SCH (21:06)
--- NOTE | 2020-08-08 21:20 | NUR ---
WOUND CARE DONE TO LEFT LOWER EXTREMITY ORDERED AND PT TOLERATED WELL.
--- NOTE | 2020-08-09 | NUR ---
awoke for ancef dose and vitals. vss.
[2020-08-09 00:12] VITALS: BP 118/69
--- NOTE | 2020-08-09 01:10 | NUR ---
pt up to brp and then medicated for pain with diladid and IVPB vanco now infusing.
[2020-08-09] MEDS: VANCOmycin 1250MG/NS 250ml Bag 250 ML IV SCH ×2 (01:13→09:39)
[2020-08-09] MEDS: HYDROmorphone 1 mg/ml syringe IV PRN ×3 (01:15→09:31)
--- NOTE | 2020-08-09 03:00 | NUR ---
resting without s&s of distress.
--- NOTE | 2020-08-09 05:23 | NUR ---
medicated for pain and teaching done regarding infection and diet.
--- NOTE | 2020-08-09 06:00 | NUR ---
Patient in room [facility] 352. I have received report from MIGUEL Lynn and had the opportunity to ask questions and assume patient care.
--- NOTE | 2020-08-09 06:04 | NUR ---
Problems reprioritized. Patient report given, questions answered & plan of care reviewed with LIZ RIVERA. Addendum: 08/09/20 at 0605 by Emma Bashir RN Amended: Links added.
--- NOTE | 2020-08-09 06:47 | NUR ---
Patient in room [facility] 352. I have received report from MERCEDES stewart and had the opportunity to ask questions and assume patient care.
--- NOTE | 2020-08-09 06:50 | NUR ---
Patient in room [facility] 352. I have received report from MIGUEL Lynn and had the opportunity to ask questions and assume patient care.
[2020-08-09 06:51] LABS: BASOPHILS % (AUTO) 0.2 % (0-1); EOSINOPHILS # (AUTO) 0.2 X10'3 (0-0.9); EOSINOPHILS % (AUTO) 2.9 % (0-6); HEMATOCRIT 35.6 % (35.0-45.0); HEMOGLOBIN 11.9 g/dl (12.0-16.0); LYMPHOCYTES # (AUTO) 2.5 X10'3 (1.1-4.8); MEAN CORPUSCULAR HGB CONC 33.5 g/dL (33.0-36.5); MEAN CORPUSCULAR VOLUME 86.8 FL (78-98); MEAN PLATELET VOLUME 8.5 FL (7.4-10.4); MONOCYTES # (AUTO) 0.7 X10'3 (0-0.9); NEUTROPHILS # (AUTO) 4.6 X10'3 (1.8-7.7); NEUTROPHILS % (AUTO) 56.9 % (42-75); PLATELET COUNT 317 X10'3 (140-440); RED CELL DISTRIBUTION WIDTH 13.2 % (11.5-14.5)
[2020-08-09 07:08] LABS: ALANINE AMINOTRANSFERASE 15 U/L (12-78); ALBUMIN 2.6 G/DL (3.4-5.0); ALBUMIN/GLOBULIN RATIO 0.6 (1.1-1.5); ALKALINE PHOSPHATASE 73 IU/L (46-116); ANION GAP 12 (8-16); ASPARTATE AMINO TRANSFERASE 9 U/L (10-37); BILIRUBIN,TOTAL 0.3 MG/DL (0.1-1.0); BLOOD UREA NITROGEN 11 MG/DL (7-18); BUN/CREATININE RATIO 18.6 (6.6-38.0); CHLORIDE 109 MMOL/L (99-107); CREATININE 0.59 MG/DL (0.40-0.90); GLUCOSE 96 MG/DL (70-104); MAGNESIUM 1.8 MG/DL (1.5-2.4); POTASSIUM 3.5 MMOL/L (3.5-5.1); SODIUM 144 MMOL/L (135-145); TOTAL CARBON DIOXIDE 23.4 MMOL/L (24-32); TOTAL PROTEIN 7.3 G/DL (6.4-8.2); eGFR > 90 ML/MIN
[2020-08-09] MEDS: buprenorphine/naloxone 8MG-2MG SUBlingual film SL SCH (08:00)
[2020-08-09] MEDS: JUVEN Smoothie Arginine/Glut./Ca2+Bmb (Juven 19.3pkt) 240ml cup PO SCH (08:00)
[2020-08-09] MEDS: K and/or MAG REPLACEMENT MC SCH (08:00)
[2020-08-09] MEDS: lactobacillus rhamnosus 10,000 MMU CELLS/CAPSULE PO SCH (08:22)
[2020-08-09] MEDS: gabapentin 300mg capsule PO SCH ×2 (08:24→12:32)
[2020-08-09] MEDS: enoxaparin 40mg/0.4ml syringe SUBCUT SCH (08:26)
[2020-08-09] MEDS: bacitracin 15gm ointment TP SCH ×2 (08:26→12:32)
[2020-08-09 08:30] VITALS: BP 135/85
[2020-08-09] MEDS: CEFEPIME 2gm in D5W 50mL 50 ML IV SCH ×2 (08:30)
[2020-08-09] MEDS: LORazepam 1 MG tablet PO PRN (09:31)
[2020-08-09] MEDS ORDERED: DOXY100C2 PO (11:31)
--- NOTE | 2020-08-09 11:31 | NUR ---
Patient agitated because IV infiltrated and concerned about getting pain meds patient not due yet for pain relief. Dr Abel was paged. Dr Abel into see patient is for discharge. Currently in having a shower stated that she will 'give us one hour' to get her out of here or she will leave. and staff working on Discharge at this time.
--- NOTE | 2020-08-09 11:41 | NUR ---
Student documentation: I have reviewed and agree with all interventions, assessments performed and documented by Amira, nursing tech, and Kristine, nursing tech.
--- NOTE | 2020-08-09 11:42 | NUR ---
Student Medication Administration: For this medication-pass time frame, all medication were reviewed, dispensed, administered and documented per hospital policy by Amira, certified nursing assistant, and Kristine, certified nursing assistant.
--- NOTE | 2020-08-09 12:20 | NUR ---
Problems reprioritized. Patient report given, questions answered & plan of care reviewed with Leah RIVERA.
--- NOTE | 2020-08-09 12:20 | NUR ---
Problems reprioritized. Patient report given, questions answered & plan of care reviewed with MIGUEL Lynn.
--- NOTE | 2020-08-09 12:44 | NUR ---
All discharge instructions given to patient . wound care done . prescription [facility] [address]. Patient appears stable for discharge . IV removed from right arm intact. . patient discharged home driving herself in private car.
== END 2020-08-09 12:35 | disposition home or self-care (01) | DRG 383 ==
LOC: ER 13:37 → ED HOLD 17:44 → UNDOADMIN 17:44 → ED HOLD 18:03 → SUR 3N 19:25 → ED HOLD 19:25
PROVIDERS: ADMIT Family Medicine; ATTEND Family Medicine
PROC: BQ2S1ZZ Computerized Tomography (CT Scan) of Left Lower Extremity using Low Osmolar Contrast (ICD-10-PCS; 2020-08-05)
PROC: 3E0234Z Introduction of Serum, Toxoid and Vaccine into Muscle, Percutaneous Approach (ICD-10-PCS; principal; 2020-08-07)
PROC: 3E02340 Introduction of Influenza Vaccine into Muscle, Percutaneous Approach (ICD-10-PCS; 2020-08-07)
DX: L03.116 Cellulitis of left lower limb (principal); S91.002A Unspecified open wound, left ankle, initial encounter; B18.2 Chronic viral hepatitis C; F32.9 Major depressive disorder, single episode, unspecified; G40.909 Epilepsy, unspecified, not intractable, without status epilepticus; G47.00 Insomnia, unspecified; G89.29 Other chronic pain; F12.90 Cannabis use, unspecified, uncomplicated; F41.9 Anxiety disorder, unspecified; I10 Essential (primary) hypertension; E87.6 Hypokalemia; X58.XXXA Exposure to other specified factors, initial encounter; I88.9 Nonspecific lymphadenitis, unspecified; Z86.14 Personal history of Methicillin resistant Staphylococcus aureus infection; Z86.718 Personal history of other venous thrombosis and embolism; Z23 Encounter for immunization; Z88.8 Allergy status to other drugs, medicaments and biological substances; Z90.49 Acquired absence of other specified parts of digestive tract; Y93.89 Activity, other specified; Y92.89 Other specified places as the place of occurrence of the external cause; Y99.8 Other external cause status
CPT/HCPCS: 36415; 73701; 73720; 76937; 80053; 80202; 83605; 83735; 84145; 85025; 87040; 87081; 90732; 93922; 93971; 94760; 96361; 96365; 96375; 99285; A9575; G0378; J0692; J0696; J1170; J1650; J2270; J2405; J3010; J3370; J7030; Q2039; Q9967

== ENCOUNTER 2020-08-26 16:21 | Inpatient (IN) | payer MEDICAID ==
[~2020-08-26] VITALS: Ht 170.2 cm; Wt 86.4 kg
[~2020-08-26 16:21] MED LIST changes: +ALBU8HFA IH; -CLON-529 PO; +DOCU-22 PO; +DOXY100C2 PO; -FAMO20TA8 PO; -ONDA4TAB6 PO; -ONDA8TAB13 PO
[2020-08-26 17:31] LABS: BASOPHILS # (AUTO) 0.1 X10'3 (0-0.2); BASOPHILS % (AUTO) 0.5 % (0-1); EOSINOPHILS # (AUTO) 0.1 X10'3 (0-0.9); EOSINOPHILS % (AUTO) 0.6 % (0-6); HEMATOCRIT 38.3 % (35.0-45.0); HEMOGLOBIN 12.9 g/dl (12.0-16.0); LYMPHOCYTES % (AUTO) 14.1 % (21-51); MEAN CORPUSCULAR HEMOGLOBIN 29.6 PG (27.0-31.0); MEAN CORPUSCULAR HGB CONC 33.6 g/dL (33.0-36.5); MEAN CORPUSCULAR VOLUME 88.1 FL (78-98); MEAN PLATELET VOLUME 8.3 FL (7.4-10.4); MONOCYTES # (AUTO) 0.8 X10'3 (0-0.9); MONOCYTES % (AUTO) 5.5 % (2-12); NEUTROPHILS # (AUTO) 11.5 X10'3 (1.8-7.7); NEUTROPHILS % (AUTO) 79.3 % (42-75); PLATELET COUNT 328 X10'3 (140-440); RED BLOOD COUNT 4.35 X10'6 (4.20-5.60); RED CELL DISTRIBUTION WIDTH 14.3 % (11.5-14.5); WHITE BLOOD COUNT 14.5 X10'3 (4.5-11.0)
[2020-08-26 17:46] LABS: ALANINE AMINOTRANSFERASE 13 U/L (12-78); ALBUMIN 3.3 G/DL (3.4-5.0); ALBUMIN/GLOBULIN RATIO 0.7 (1.1-1.5); ALKALINE PHOSPHATASE 94 IU/L (46-116); ANION GAP 14 (8-16); ASPARTATE AMINO TRANSFERASE 9 U/L (10-37); BILIRUBIN,TOTAL 0.2 MG/DL (0.1-1.0); BLOOD UREA NITROGEN 9 MG/DL (7-18); BUN/CREATININE RATIO 12.5 (6.6-38.0); CALCIUM 8.8 MG/DL (8.5-10.1); CHLORIDE 104 MMOL/L (99-107); CREATININE 0.72 MG/DL (0.40-0.90); GLUCOSE 90 MG/DL (70-104); POTASSIUM 3.7 MMOL/L (3.5-5.1); SODIUM 140 MMOL/L (135-145); TOTAL CARBON DIOXIDE 22.5 MMOL/L (24-32); TOTAL PROTEIN 7.9 G/DL (6.4-8.2); eGFR 88 ML/MIN
[2020-08-26 18:25] LABS: C-REACTIVE PROTEIN 3.57 MG/DL (0.0-0.5)
[2020-08-26] MEDS ORDERED: HYDROcodone/acetaminophen 10/325mg tab PO ONE (18:45)
[2020-08-26] MEDS ORDERED: ondansetron/PF 4mg/2ml inj IV ONE (20:30)
[2020-08-26] MEDS ORDERED: morphine 4 MG/ML inj SYRINge IV ONE ×2 (20:30→22:30)
[2020-08-26] MEDS ORDERED: ondansetron/PF 4mg/2ml inj IV PRN (23:05)
[2020-08-26] MEDS ORDERED: potassium Cl 20 mEq SR tablet PO PRN (23:05)
[2020-08-26] MEDS ORDERED: magnesium 2GM in 50ml NS 50 ML IV PRN (23:05)
[2020-08-26] MEDS ORDERED: magnesium Cl slow-release 64mg tablet PO PRN (23:05)
[2020-08-26] MEDS ORDERED: bisacodyl 10mg suppository rectal RC PRN (23:05)
[2020-08-26] MEDS ORDERED: acetaminophen 325mg tablet PO PRN (23:05)
[2020-08-26] MEDS ORDERED: magnesium 4gm in 100ml NS 100 ML IV PRN (23:05)
[2020-08-26] MEDS ORDERED: potassium Cl 40MEQ/1/2NS 520ml 520 ML IV PRN ×2 (23:05)
[2020-08-26 23:55] VITALS: BP 123/67
--- NOTE | 2020-08-27 | NUR ---
Patient in room [facility] 4017. I have received report from MIGUEL Kruse and had the opportunity to ask questions and assume patient care.
[2020-08-27] MEDS: HYDROmorphone inj. 0.5 MG/0.5 ML DISP.SYRIN IV PRN ×3 (00:20→08:28)
[2020-08-27] MEDS: normal saline 1000ml 1,000 ML IV SCH ×3 (00:32→13:00)
[2020-08-27 05:30] VITALS: BP 121/85
--- NOTE | 2020-08-27 06:30 | NUR ---
Patient in room [facility] 4017. I have received report from MIGUEL Quigley and had the opportunity to ask questions and assume patient care.
[2020-08-27 06:33] LABS: BASOPHILS % (AUTO) 0.5 % (0-1); EOSINOPHILS # (AUTO) 0.1 X10'3 (0-0.9); EOSINOPHILS % (AUTO) 1.7 % (0-6); HEMATOCRIT 33.2 % (35.0-45.0); HEMOGLOBIN 11.3 g/dl (12.0-16.0); LYMPHOCYTES # (AUTO) 2.1 X10'3 (1.1-4.8); LYMPHOCYTES % (AUTO) 26.9 % (21-51); MEAN CORPUSCULAR HEMOGLOBIN 29.9 PG (27.0-31.0); MEAN CORPUSCULAR VOLUME 87.9 FL (78-98); MEAN PLATELET VOLUME 8.8 FL (7.4-10.4); MONOCYTES # (AUTO) 0.7 X10'3 (0-0.9); MONOCYTES % (AUTO) 9.1 % (2-12); NEUTROPHILS # (AUTO) 4.9 X10'3 (1.8-7.7); NEUTROPHILS % (AUTO) 61.8 % (42-75); PLATELET COUNT 278 X10'3 (140-440); RED BLOOD COUNT 3.77 X10'6 (4.20-5.60); RED CELL DISTRIBUTION WIDTH 13.9 % (11.5-14.5); WHITE BLOOD COUNT 7.9 X10'3 (4.5-11.0)
--- NOTE | 2020-08-27 06:38 | NUR ---
Problems reprioritized. Patient report given, questions answered & plan of care reviewed with MIGUEL Hopkins.
[2020-08-27] MEDS ORDERED: albuterol 2.5 MG/3 ML nebule NEB PRN (06:40)
[2020-08-27] MEDS ORDERED: ibuprofen tablet 400 MG TABLET PO PRN (06:40)
[2020-08-27] MEDS ORDERED: tizanidine 4mg tablet PO PRN (06:40)
[2020-08-27] MEDS ORDERED: cloNIDine 0.1 mg tablet PO PRN (06:40)
[2020-08-27 06:52] LABS: ALBUMIN 2.7 G/DL (3.4-5.0); ANION GAP 6 (8-16); BLOOD UREA NITROGEN 7 MG/DL (7-18); BUN/CREATININE RATIO 10.6 (6.6-38.0); CALCIUM 8.1 MG/DL (8.5-10.1); CHLORIDE 106 MMOL/L (99-107); CREATININE 0.66 MG/DL (0.40-0.90); GLUCOSE 93 MG/DL (70-104); MAGNESIUM 1.7 MG/DL (1.5-2.4); POTASSIUM 3.3 MMOL/L (3.5-5.1); SODIUM 139 MMOL/L (135-145); TOTAL CARBON DIOXIDE 26.6 MMOL/L (24-32); eGFR > 90 ML/MIN
[2020-08-27] MEDS: K and/or MAG REPLACEMENT MC SCH ×2 (07:21→20:00)
[2020-08-27] MEDS: magnesium hydroxide 30ml (MOM) UD suspension PO PRN (07:33)
[2020-08-27] MEDS: docusate sod 100mg capsule PO SCH ×3 (07:33→21:01)
[2020-08-27] MEDS: gabapentin 300mg capsule PO SCH ×3 (07:34→21:00)
[2020-08-27] MEDS: VANCOmycin 1250MG/NS 250ml Bag 250 ML IV SCH ×2 (07:35→19:14)
[2020-08-27] MEDS: HYDROcodone/acetaminophen 5mg/325mg tablet PO PRN (07:35)
[2020-08-27] MEDS ORDERED: Dakins solution (1/4 strength) 473ml solution TP PRN (07:50)
[2020-08-27] MEDS ORDERED: vancomycin/NS 1 GM ADD-VANTAGE 250 ML IV SCH (08:00)
[2020-08-27] MEDS ORDERED: buprenorphine/naloxone 8MG-2MG SUBlingual film SL SCH (08:00)
[2020-08-27] MEDS: potassium Cl 20 mEq SR tablet PO PRN ×3 (08:28→17:11)
[2020-08-27] MEDS: HYDROmorphone 1 mg/ml syringe IV PRN ×4 (08:56→20:55)
[2020-08-27 10:00] VITALS: BP 121/73
[2020-08-27 18:00] VITALS: BP 124/71
--- NOTE | 2020-08-27 18:30 | NUR ---
Problems reprioritized. Patient report given, questions answered & plan of care reviewed with MIGUEL Quigley.
--- NOTE | 2020-08-27 18:48 | NUR ---
Patient in room [facility] 4017. I have received report from MIGUEL Hopkins and had the opportunity to ask questions and assume patient care.
[2020-08-27] MEDS: traZODone 50mg tablet PO SCH (20:56)
[2020-08-27] MEDS: lactobacillus rhamnosus 10,000 MMU CELLS/CAPSULE PO SCH (20:56)
[2020-08-27] MEDS: CEFEPIME 2gm in D5W 50mL 50 ML IV SCH (20:56)
[2020-08-27] MEDS: quetiapine fumarate ER 300mg tablet PO SCH (21:08)
[2020-08-27 22:00] VITALS: BP 122/81
[2020-08-28] MEDS: HYDROmorphone 1 mg/ml syringe IV PRN ×6 (00:53→21:50)
[2020-08-28] MEDS: normal saline 1000ml 1,000 ML IV SCH ×2 (00:53→13:47)
--- NOTE | 2020-08-28 06:38 | NUR ---
Problems reprioritized. Patient report given, questions answered & plan of care reviewed with MIGUEL Wallace.
[2020-08-28 06:48] LABS: BASOPHILS % (AUTO) 0.4 % (0-1); EOSINOPHILS # (AUTO) 0.2 X10'3 (0-0.9); EOSINOPHILS % (AUTO) 2.9 % (0-6); HEMATOCRIT 33.6 % (35.0-45.0); HEMOGLOBIN 11.4 g/dl (12.0-16.0); LYMPHOCYTES # (AUTO) 1.9 X10'3 (1.1-4.8); LYMPHOCYTES % (AUTO) 37.3 % (21-51); MEAN CORPUSCULAR VOLUME 88.4 FL (78-98); MEAN PLATELET VOLUME 8.5 FL (7.4-10.4); MONOCYTES # (AUTO) 0.6 X10'3 (0-0.9); NEUTROPHILS # (AUTO) 2.5 X10'3 (1.8-7.7); NEUTROPHILS % (AUTO) 48.4 % (42-75); PLATELET COUNT 264 X10'3 (140-440); RED BLOOD COUNT 3.81 X10'6 (4.20-5.60); WHITE BLOOD COUNT 5.2 X10'3 (4.5-11.0)
[2020-08-28 06:51] VITALS: BP 112/67
[2020-08-28 07:07] LABS: ALBUMIN 2.6 G/DL (3.4-5.0); ANION GAP 8 (8-16); BLOOD UREA NITROGEN 5 MG/DL (7-18); CALCIUM 8.2 MG/DL (8.5-10.1); CHLORIDE 109 MMOL/L (99-107); GLUCOSE 88 MG/DL (70-104); POTASSIUM 3.9 MMOL/L (3.5-5.1); SODIUM 141 MMOL/L (135-145); TOTAL CARBON DIOXIDE 24.2 MMOL/L (24-32); eGFR > 90 ML/MIN
[2020-08-28] MEDS: VANCOmycin 1250MG/NS 250ml Bag 250 ML IV SCH ×2 (07:23→19:46)
[2020-08-28] MEDS: lactobacillus rhamnosus 10,000 MMU CELLS/CAPSULE PO SCH ×2 (07:23→19:46)
[2020-08-28] MEDS: gabapentin 300mg capsule PO SCH ×3 (07:24→21:45)
[2020-08-28] MEDS: docusate sod 100mg capsule PO SCH ×3 (07:24→19:46)
[2020-08-28] MEDS: K and/or MAG REPLACEMENT MC SCH ×2 (07:24→20:00)
[2020-08-28] MEDS: CEFEPIME 2gm in D5W 50mL 50 ML IV SCH ×2 (09:12→21:46)
[2020-08-28 10:31] VITALS: BP 136/87
[2020-08-28 18:00] VITALS: BP_SYST 109; BP_SYST 124; BP_DIAS 46; BP_DIAS 84
[2020-08-28] MEDS ORDERED: VANCOMYCIN LEVEL IV ONE (18:30)
--- NOTE | 2020-08-28 18:45 | NUR ---
Problems reprioritized. Patient report given, questions answered & plan of care reviewed with Lucia RIVERA and Abner SRN.
[2020-08-28] MEDS: HYDROcodone/acetaminophen 5mg/325mg tablet PO PRN (19:03)
--- NOTE | 2020-08-28 19:23 | NUR ---
Patient in room [facility] 4017. I have received report from Madison RIVERA and had the opportunity to ask questions and assume patient care.
--- NOTE | 2020-08-28 19:36 | NUR ---
not done on this patient, was done on other patient Addendum: 08/28/20 at 1937 by Opal Nicholas RN Amended: Links added.
[2020-08-28] MEDS: quetiapine fumarate ER 300mg tablet PO SCH (21:45)
[2020-08-28] MEDS: traZODone 50mg tablet PO SCH (21:46)
[2020-08-28 22:00] VITALS: BP 131/60
[2020-08-29] MEDS: normal saline 1000ml 1,000 ML IV SCH ×3 (01:05→21:05)
[2020-08-29] MEDS: HYDROmorphone 1 mg/ml syringe IV PRN ×6 (02:09→22:56)
[2020-08-29 06:08] LABS: BASOPHILS % (AUTO) 0.5 % (0-1); EOSINOPHILS # (AUTO) 0.2 X10'3 (0-0.9); EOSINOPHILS % (AUTO) 3.9 % (0-6); HEMATOCRIT 34.3 % (35.0-45.0); HEMOGLOBIN 11.5 g/dl (12.0-16.0); LYMPHOCYTES # (AUTO) 2.3 X10'3 (1.1-4.8); LYMPHOCYTES % (AUTO) 43.3 % (21-51); MEAN CORPUSCULAR HEMOGLOBIN 29.9 PG (27.0-31.0); MEAN CORPUSCULAR HGB CONC 33.7 g/dL (33.0-36.5); MEAN CORPUSCULAR VOLUME 88.9 FL (78-98); MEAN PLATELET VOLUME 7.9 FL (7.4-10.4); MONOCYTES # (AUTO) 0.6 X10'3 (0-0.9); NEUTROPHILS # (AUTO) 2.2 X10'3 (1.8-7.7); NEUTROPHILS % (AUTO) 41.3 % (42-75); PLATELET COUNT 239 X10'3 (140-440); RED BLOOD COUNT 3.85 X10'6 (4.20-5.60); RED CELL DISTRIBUTION WIDTH 13.9 % (11.5-14.5); WHITE BLOOD COUNT 5.4 X10'3 (4.5-11.0)
--- NOTE | 2020-08-29 06:15 | NUR ---
reviewed and agree with SRN assessment
[2020-08-29 06:23] LABS: ALBUMIN 2.6 G/DL (3.4-5.0); ANION GAP 9 (8-16); BLOOD UREA NITROGEN 8 MG/DL (7-18); BUN/CREATININE RATIO 12.5 (6.6-38.0); CALCIUM 8.3 MG/DL (8.5-10.1); CHLORIDE 111 MMOL/L (99-107); CREATININE 0.64 MG/DL (0.40-0.90); GLUCOSE 91 MG/DL (70-104); SODIUM 144 MMOL/L (135-145); TOTAL CARBON DIOXIDE 24.4 MMOL/L (24-32); eGFR > 90 ML/MIN
[2020-08-29 06:42] VITALS: BP 126/60
[2020-08-29] MEDS: gabapentin 300mg capsule PO SCH ×3 (07:28→21:27)
[2020-08-29] MEDS: lactobacillus rhamnosus 10,000 MMU CELLS/CAPSULE PO SCH ×2 (07:28→23:10)
[2020-08-29] MEDS: CEFEPIME 2gm in D5W 50mL 50 ML IV SCH (07:28)
[2020-08-29] MEDS: docusate sod 100mg capsule PO SCH ×3 (07:28→21:26)
[2020-08-29] MEDS: K and/or MAG REPLACEMENT MC SCH ×2 (07:29→20:00)
[2020-08-29] MEDS: VANCOMYCIN 1,500MG inj. 1,500 MG in normal saline 500ml IV soln 300 ML IV SCH ×2 (08:21→21:25)
[2020-08-29] MEDS: magnesium hydroxide 30ml (MOM) UD suspension PO PRN (10:04)
[2020-08-29 10:17] VITALS: BP 124/78
[2020-08-29] MEDS ORDERED: iohexol 350 MG/ML 50ML vial IV ONE (15:51)
[2020-08-29] MEDS ORDERED: iohexol 350MG/ML 100ml bottle IV ONE (15:51)
--- NOTE | 2020-08-29 15:52 | NUR ---
CALLED CT. PT. READY AND WAITING- ABLE TO AMBULATE TO W/C, SL. SCREENING FORM COMPLETED AND FAXED.
[2020-08-29 18:00] VITALS: BP 147/100
--- NOTE | 2020-08-29 18:09 | NUR ---
Problems reprioritized. Patient report given, questions answered & plan of care reviewed with FABBY RIVERA.
[2020-08-29] MEDS: traZODone 50mg tablet PO SCH (21:27)
[2020-08-29] MEDS: quetiapine fumarate ER 300mg tablet PO SCH (21:27)
[2020-08-29 22:00] VITALS: BP 110/70
[2020-08-30] MEDS: HYDROmorphone 1 mg/ml syringe IV PRN ×3 (03:01→11:07)
[2020-08-30] MEDS: normal saline 1000ml 1,000 ML IV SCH (03:15)
[2020-08-30 07:03] LABS: ALBUMIN 2.6 G/DL (3.4-5.0); ANION GAP 9 (8-16); BLOOD UREA NITROGEN 10 MG/DL (7-18); BUN/CREATININE RATIO 16.1 (6.6-38.0); CALCIUM 8.4 MG/DL (8.5-10.1); CHLORIDE 110 MMOL/L (99-107); CREATININE 0.62 MG/DL (0.40-0.90); GLUCOSE 97 MG/DL (70-104); POTASSIUM 3.6 MMOL/L (3.5-5.1); SODIUM 143 MMOL/L (135-145); eGFR > 90 ML/MIN
[2020-08-30 07:07] LABS: BASOPHILS % (AUTO) 0.4 % (0-1); EOSINOPHILS # (AUTO) 0.2 X10'3 (0-0.9); EOSINOPHILS % (AUTO) 3.3 % (0-6); HEMATOCRIT 33.8 % (35.0-45.0); HEMOGLOBIN 11.5 g/dl (12.0-16.0); LYMPHOCYTES # (AUTO) 2.2 X10'3 (1.1-4.8); LYMPHOCYTES % (AUTO) 39.4 % (21-51); MEAN CORPUSCULAR HGB CONC 33.9 g/dL (33.0-36.5); MEAN CORPUSCULAR VOLUME 88.6 FL (78-98); MEAN PLATELET VOLUME 8.2 FL (7.4-10.4); MONOCYTES # (AUTO) 0.6 X10'3 (0-0.9); MONOCYTES % (AUTO) 10.1 % (2-12); NEUTROPHILS # (AUTO) 2.6 X10'3 (1.8-7.7); NEUTROPHILS % (AUTO) 46.8 % (42-75); PLATELET COUNT 233 X10'3 (140-440); RED BLOOD COUNT 3.82 X10'6 (4.20-5.60); RED CELL DISTRIBUTION WIDTH 13.7 % (11.5-14.5); WHITE BLOOD COUNT 5.6 X10'3 (4.5-11.0)
[2020-08-30] MEDS: VANCOMYCIN 1,500MG inj. 1,500 MG in normal saline 500ml IV soln 300 ML IV SCH (09:00)
[2020-08-30] MEDS: docusate sod 100mg capsule PO SCH (09:02)
[2020-08-30] MEDS: lactobacillus rhamnosus 10,000 MMU CELLS/CAPSULE PO SCH (09:02)
[2020-08-30] MEDS: gabapentin 300mg capsule PO SCH (09:02)
[2020-08-30] MEDS ORDERED: LINE600T11 PO (11:58)
--- NOTE | 2020-08-30 12:40 | NUR ---
Patient discharged at this time. Patient antibiotics to [facility].
[2020-08-30] MEDS ORDERED: VANCOMYCIN LEVEL IV ONE (19:30)
== END 2020-08-30 12:40 | disposition home or self-care (01) | DRG 720 ==
LOC: ER 16:22 → ED HOLD 23:01 → ORTHO 4S 23:57
PROVIDERS: ADMIT Internal Medicine; ATTEND Family Medicine
PROC: B4201ZZ Computerized Tomography (CT Scan) of Abdominal Aorta using Low Osmolar Contrast (ICD-10-PCS; principal; 2020-08-29)
PROC: B4241ZZ Computerized Tomography (CT Scan) of Superior Mesenteric Artery using Low Osmolar Contrast (ICD-10-PCS; 2020-08-29)
PROC: B4281ZZ Computerized Tomography (CT Scan) of Bilateral Renal Arteries using Low Osmolar Contrast (ICD-10-PCS; 2020-08-29)
PROC: B42H1ZZ Computerized Tomography (CT Scan) of Bilateral Lower Extremity Arteries using Low Osmolar Contrast (ICD-10-PCS; 2020-08-29)
PROC: B4211ZZ Computerized Tomography (CT Scan) of Celiac Artery using Low Osmolar Contrast (ICD-10-PCS; 2020-08-29)
PROC: B42H1ZZ Computerized Tomography (CT Scan) of Bilateral Lower Extremity Arteries using Low Osmolar Contrast (ICD-10-PCS; 2020-08-29)
DX: A41.9 Sepsis, unspecified organism (principal); L97.329 Non-pressure chronic ulcer of left ankle with unspecified severity; L03.116 Cellulitis of left lower limb; B18.2 Chronic viral hepatitis C; B95.62 Methicillin resistant Staphylococcus aureus infection as the cause of diseases classified elsewhere; F32.9 Major depressive disorder, single episode, unspecified; G40.909 Epilepsy, unspecified, not intractable, without status epilepticus; G89.29 Other chronic pain; F12.90 Cannabis use, unspecified, uncomplicated; F41.9 Anxiety disorder, unspecified; I10 Essential (primary) hypertension; Z79.891 Long term (current) use of opiate analgesic; Z86.718 Personal history of other venous thrombosis and embolism; Z88.8 Allergy status to other drugs, medicaments and biological substances; Z90.49 Acquired absence of other specified parts of digestive tract; Z98.891 History of uterine scar from previous surgery; E87.6 Hypokalemia; Z79.899 Other long term (current) drug therapy
CPT/HCPCS: 36415; 71045; 73610; 75635; 76937; 80048; 80053; 80202; 83605; 83735; 84145; 85025; 85651; 86140; 87040; 87070; 87075; 87077; 87081; 87102; 87186; 96374; 96375; 99285; G0378; J0692; J1170; J2270; J2405; J3370; J7030; J7040; Q9967

== ENCOUNTER 2021-02-04 11:33 | Emergency (ER) | payer MEDICAID ==
[~2021-02-04] VITALS: Ht 170.2 cm; Wt 81.8 kg
[~2021-02-04 11:33] MED LIST changes: -DOXY100C2 PO; +LINE600T11 PO; -QUET300T19 PO; +QUET300T20 PO
[2021-02-04 11:45] VITALS: BP 133/81
[2021-02-04] MEDS ORDERED: LEVO500T89 PO (15:27)
== END 2021-02-04 15:32 | disposition home or self-care (01) ==
LOC: ER 11:34
DX: S91.002A Unspecified open wound, left ankle, initial encounter (principal); G89.29 Other chronic pain; F41.9 Anxiety disorder, unspecified; F32.9 Major depressive disorder, single episode, unspecified; F12.90 Cannabis use, unspecified, uncomplicated; Z86.69 Personal history of other diseases of the nervous system and sense organs; Z86.19 Personal history of other infectious and parasitic diseases; Z86.718 Personal history of other venous thrombosis and embolism; Z86.14 Personal history of Methicillin resistant Staphylococcus aureus infection; Z90.49 Acquired absence of other specified parts of digestive tract; Z98.890 Other specified postprocedural states; Z72.89 Other problems related to lifestyle; Z88.8 Allergy status to other drugs, medicaments and biological substances; Z79.899 Other long term (current) drug therapy; X58.XXXA Exposure to other specified factors, initial encounter; Y93.89 Activity, other specified; Y92.89 Other specified places as the place of occurrence of the external cause; Y99.8 Other external cause status
CPT/HCPCS: 99283

== ENCOUNTER 2023-06-29 18:50 | Emergency (ER) | payer MEDICAID ==
[~2023-06-29] VITALS: Ht 170.2 cm; Wt 91.0 kg
[~2023-06-29 18:50] MED LIST changes: +TIZA-205 PO; -TIZA4TAB5 PO
[2023-06-29 18:53] VITALS: BP 186/102; PULSE 66; RESP 22; TEMP 98.8; O2SAT 98
== END 2023-06-29 20:48 | disposition left against medical advice (07) ==
LOC: ER 18:51
DX: R10.9 Unspecified abdominal pain (principal); R11.0 Nausea; Z53.21 Procedure and treatment not carried out due to patient leaving prior to being seen by health care provider
CPT/HCPCS: 99281

== ENCOUNTER 2023-10-11 19:41 | Emergency (ER) | payer MEDICAID ==
[~2023-10-11] VITALS: Ht 170.2 cm; Wt 92.0 kg
[2023-10-11 19:54] VITALS: TEMP 98
[2023-10-11] MEDS: normal saline 1000ML IV soln IVB ONE (20:34)
[2023-10-11] MEDS: ondansetron/PF 4mg/2ml inj IV ONE (20:34)
[2023-10-11] MEDS: HYDROmorphone inj. 0.5 MG/0.5 ML DISP.SYRIN IV ONE (20:41)
[2023-10-11] MEDS: morphine 4 MG/ML inj SYRINge IV ONE (20:42)
[2023-10-11 20:49] LABS: BASOPHILS # (AUTO) 0.1 X10'3 (0-0.2); BASOPHILS % (AUTO) 0.4 % (0-1); EOSINOPHILS % (AUTO) 0 % (0-6); HEMATOCRIT 40.9 % (35.0-45.0); HEMOGLOBIN 13.7 g/dl (12.0-16.0); LYMPHOCYTES # (AUTO) 1.4 X10'3 (1.1-4.8); LYMPHOCYTES % (AUTO) 8.6 % (21-51); MEAN CORPUSCULAR HEMOGLOBIN 28.9 PG (27.0-31.0); MEAN CORPUSCULAR HGB CONC 33.6 g/dL (33.0-36.5); MEAN CORPUSCULAR VOLUME 86.2 FL (78-98); MEAN PLATELET VOLUME 8.4 FL (7.4-10.4); MONOCYTES # (AUTO) 0.6 X10'3 (0-0.9); MONOCYTES % (AUTO) 3.9 % (2-12); NEUTROPHILS # (AUTO) 13.9 X10'3 (1.8-7.7); NEUTROPHILS % (AUTO) 87.1 % (42-75); PLATELET COUNT 361 X10'3 (140-440); RED BLOOD COUNT 4.75 X10'6 (4.20-5.60); RED CELL DISTRIBUTION WIDTH 13.6 % (11.5-14.5)
[2023-10-11 21:03] LABS: ALANINE AMINOTRANSFERASE 20 U/L (12-78); ALBUMIN 4.1 G/DL (3.4-5.0); ALBUMIN/GLOBULIN RATIO 0.7 (1.1-1.5); ALKALINE PHOSPHATASE 107 IU/L (46-116); ANION GAP 15 (8-16); ASPARTATE AMINO TRANSFERASE 11 U/L (10-37); BILIRUBIN,TOTAL 0.3 MG/DL (0.1-1.0); BLOOD UREA NITROGEN 12 MG/DL (7-18); BUN/CREATININE RATIO 9.7 (10.0-20.0); C-REACTIVE PROTEIN 0.41 MG/DL (0.0-0.5); CALCIUM 10.6 MG/DL (8.5-10.1); CHLORIDE 103 MMOL/L (99-107); CREATININE 1.24 MG/DL (0.40-0.90); GLUCOSE 139 MG/DL (70-104); LIPASE 27 U/L (16-77); POTASSIUM 3.3 MMOL/L (3.5-5.1); SODIUM 142 MMOL/L (135-145); TOTAL CARBON DIOXIDE 24.5 MMOL/L (24-32); TOTAL PROTEIN 10.1 G/DL (6.4-8.2); eCRCL 55 ML/MIN; eGFR 46 ML/MIN
[2023-10-11] MEDS: normal saline 1000ml 1,000 ML IV ONE (21:36)
[2023-10-11] MEDS: HYDROmorphone/PF 0.2 MG/ML SYRINGE IV ONE (21:36)
[2023-10-11 21:51] VITALS: BP 140/84; PULSE 73; O2SAT 94
[2023-10-11 23:00] VITALS: RESP 20
== END 2023-10-11 23:08 | disposition left against medical advice (07) ==
LOC: ER 19:41
DX: R10.9 Unspecified abdominal pain (principal); F12.90 Cannabis use, unspecified, uncomplicated; Z88.8 Allergy status to other drugs, medicaments and biological substances; Z79.899 Other long term (current) drug therapy; Z90.49 Acquired absence of other specified parts of digestive tract; Z98.890 Other specified postprocedural states
CPT/HCPCS: 36415; 74176; 80053; 83605; 83690; 84145; 85025; 86140; 87040; 96361; 96374; 96375; 96376; 99285; J1170; J2405; J7030

== ENCOUNTER 2024-02-08 11:09 | Day surgery (SDC) | payer MEDICAID ==
[2024-02-06 17:07] LABS: BASOPHILS % (AUTO) 0.5 % (0-1); EOSINOPHILS # (AUTO) 0.2 X10'3 (0-0.9); EOSINOPHILS % (AUTO) 2.2 % (0-6); LYMPHOCYTES # (AUTO) 2.2 X10'3 (1.1-4.8); LYMPHOCYTES % (AUTO) 31.3 % (21-51); MEAN CORPUSCULAR HEMOGLOBIN 29.6 PG (27.0-31.0); MEAN PLATELET VOLUME 8.4 FL (7.4-10.4); MONOCYTES # (AUTO) 0.4 X10'3 (0-0.9); MONOCYTES % (AUTO) 6.2 % (2-12); NEUTROPHILS # (AUTO) 4.2 X10'3 (1.8-7.7); NEUTROPHILS % (AUTO) 59.8 % (42-75); PRE OP HEMATOCRIT 39.1 % (35.0-45.0); PRE OP HEMOGLOBIN 13.3 g/dL (12.0-16.0); PRE OP PLATELET COUNT 287 X10'3 (140-440); PRE OP WHITE BLOOD COUNT 7.1 10'3 (4.8-10.8); RED BLOOD COUNT 4.49 X10'6 (4.20-5.60)
[2024-02-06 17:15] LABS: ALBUMIN 3.6 G/DL (3.4-5.0); ALBUMIN/GLOBULIN RATIO 0.8 (1.1-1.5); ALKALINE PHOSPHATASE 95 IU/L (46-116); BLOOD UREA NITROGEN 6 MG/DL (7-18); BUN/CREATININE RATIO 6.5 (10.0-20.0); CALCIUM 9.2 MG/DL (8.5-10.1); CHLORIDE 103 MMOL/L (99-107); CREATININE 0.92 MG/DL (0.40-0.90); PRE OP ALT 10 U/L (30-65); PRE OP ANION GAP 8 (8-16); PRE OP AST 6 U/L (10-37); PRE OP BILIRUB, TOTAL 0.2 MG/DL (0.0-1.0); PRE OP GLUCOSE 100 MG/DL (70-104); PRE OP POTASSIUM 4.6 MMOL/L (3.4-5.1); PRE OP SODIUM 137 MMOL/L (135-145); TOTAL CARBON DIOXIDE 25.6 MMOL/L (24-32); TOTAL PROTEIN 8.2 G/DL (6.4-8.2); eGFR 65 ML/MIN
[2024-02-06 17:38] LABS: HCG SERUM QL NEGATIVE
[2024-02-08] VITALS (24 sets, daily range): BP systolic 94–153; BP diastolic 63–98; PULSE 58–96; RESP 10–20; TEMP 98.4; O2SAT 93–98
[~2024-02-08] VITALS: Ht 170.2 cm; Wt 86.0 kg
[~2024-02-08 11:09] MED LIST changes: -ALBU8HFA IH; -BUPR1FIL3 SL; +GABA-1405 PO; -GABA600T13 PO; -IBUP-1986 PO; -LINE600T11 PO; +OXYC30TA; +famotidine 20mg tablet PO ONE; +ringers solution, lacted 1,000 ML IV SCH; +vancomycin 1,500 MG in NS 300ml IV soln IV ONE
[2024-02-08] MEDS ORDERED: ringers solution, lacted 1,000 ML IV SCH (11:55)
[2024-02-08] MEDS ORDERED: labetalol 20mg/4ml (5mg/ml) syringe IV PRN (11:55)
[2024-02-08] MEDS ORDERED: proCHLORperazine 10 MG/2 ml inj IV PRN (11:55)
[2024-02-08] MEDS ORDERED: morphine 2 MG/ML inj. syringe IV PRN (11:55)
[2024-02-08] MEDS ORDERED: ondansetron/PF 4mg/2ml inj IV PRN (11:55)
[2024-02-08] MEDS ORDERED: hydrALAZINE 20mg/ml inj. IV PRN (11:55)
[2024-02-08] MEDS: morphine 4 MG/ML inj SYRINge IV ONE (12:35)
[2024-02-08] MEDS ORDERED: sevoflurane 250ml liquid IH ONE (12:38)
[2024-02-08] MEDS ORDERED: midazolam 1 mg/ML 2ml injection ONE (12:43)
[2024-02-08] MEDS ORDERED: propofol inj 20 ML IV ONE (12:58)
[2024-02-08] MEDS ORDERED: dexamethasone sod phosphate 4mg/ml inj. ONE (12:58)
[2024-02-08] MEDS ORDERED: ROPIVAcaine 0.5% (5mg/ml) 30ml vial ONE ×2 (12:58→13:16)
[2024-02-08] MEDS ORDERED: fentaNYL /PF 50mcg/ml 5ml ampule ONE (12:58)
[2024-02-08] MEDS ORDERED: ondansetron/PF 4mg/2ml inj ONE (12:58)
[2024-02-08] MEDS ORDERED: LIDOcaine 2% (20mg/ml) 5ml vial ONE (12:58)
[2024-02-08] MEDS ORDERED: vancomycin 1,000mg inj ONE (13:05)
[2024-02-08] MEDS: HYDROmorphone/PF 0.2 MG/ML SYRINGE IV PRN ×2 (13:34→15:45)
[2024-02-08] MEDS: acetaminophen 1,000mg/100ml IV 100 ML IV ONE (13:46)
[2024-02-08] MEDS: HYDROcodone/acetaminophen 10/325mg tab PO PRN (13:52)
[2024-02-08] MEDS: morphine 4 MG/ML inj SYRINge IV PRN (14:01)
[2024-02-08] MEDS: ketorolac trometh 30MG/ML vial 30 MG/ML VIAL IV ONE (15:14)
[2024-02-08] MEDS: oxyCODONE/APAP 10/325mg tablet PO ONE (16:49)
== END 2024-02-08 17:25 | disposition home or self-care (01) ==
LOC: PAS 11:09
PROVIDERS: ATTEND Orthopaedic Surgery Orthopaedic Trauma
DX: M86.8X7 Other osteomyelitis, ankle and foot (principal); G89.18 Other acute postprocedural pain; G62.9 Polyneuropathy, unspecified; G43.909 Migraine, unspecified, not intractable, without status migrainosus; F17.210 Nicotine dependence, cigarettes, uncomplicated; F12.90 Cannabis use, unspecified, uncomplicated; Z90.49 Acquired absence of other specified parts of digestive tract; Z98.890 Other specified postprocedural states; Z88.1 Allergy status to other antibiotic agents; Z88.8 Allergy status to other drugs, medicaments and biological substances
CPT/HCPCS: 28820; 36415; 64450; 76942; 80053; 82948; 84703; 85025; 87070; 87075; 93005; A6222; J0131; J0735; J1100; J1171; J1885; J2250; J2270; J2405; J2704; J2795; J3010; J3370; J3490; J7030; J7120; L3260; Z7506; Z7512; A4618; A6446; A6449; A7000

== ENCOUNTER 2025-03-23 08:04 | Emergency (ER) | payer MEDICAID ==
[~2025-03-23] VITALS: Ht 170.2 cm; Wt 91.8 kg
[~2025-03-23 08:04] MED LIST changes: -famotidine 20mg tablet PO ONE; -ringers solution, lacted 1,000 ML IV SCH; -vancomycin 1,500 MG in NS 300ml IV soln IV ONE
[2025-03-23 08:08] VITALS: BP 170/110; PULSE 86; TEMP 98.6; O2SAT 98
[2025-03-23] MEDS: ondansetron/PF 4mg/2ml inj IV ONE (08:42)
[2025-03-23] MEDS: normal saline 1000ML IV soln IVB ONE (08:45)
--- NOTE | 2025-03-23 08:46 | Physician Documentation ---
History of Present Illness Chief Complaint: Abdominal Pain w/vomiting Stated Complaint: STOMACH PAIN Time Seen by MD: 08:35 OK to notify your PCP?: Yes Primary Medical Doctor: moni Talbert Source: patient, RN/MD, EMS, RN notes reviewed, EMS notes reviewed, old records Mode of Arrival: EMS Exam Limitations: no limitations HPI Patient is complaining that she has been having some periumbilical burning pain heartburn, vomiting up blood started about two days ago. She has been having some nausea vomiting and intractable dark-colored diarrhea today. She is co ncerned she has a history of stomach ulcers states she is out of her medications. However she is taking her Protonix. She denies any alcohol use. She has a history of heavy drinking in the past. Tree reported coffee-ground emesis and black tarry diarrhea Medication Reconciliation Allergies: Coded Allergies: diphenhydramine HCl (Unverified Allergy, Unknown, REALLY COLD; CANNOT BREATHE, 02/07/24) meperidine HCl (Unverified Allergy, Unknown, 10/11/23) nafcillin (Verified Allergy, Unknown, CAN TAKE KEFLEX. REALLY COLD; CANNOT BREATHE, 02/07/24) NAFCILLIN AND BENADRYL RXN IN HOSPITAL, NOT WELL DEFINED Scheduled Dicyclomine Hcl* (Bentyl*), 1 CAP PO Q8H Docusate Sodium (Docusate Sodium), 1 CAP PO HS, (Reported) Gabapentin (Gabapentin), 2 TAB PO TID, (Reported) Pantoprazole Sodium (Protonix), 1 TAB PO DAILY Quetiapine Fumarate (Quetiapine Fumarate), 1 TAB PO HS, (Reported) Trazodone HCl (Trazodone HCl), 1 TAB PO HS, (Reported) Vilazodone Hydrochloride (Viibryd), 3 TAB PO HS, (Reported) Scheduled PRN Clonidine HCl (Clonidine HCl), 2 TAB PO HS PRN for NIGHT BROTHERS, (Reported) Tizanidine Hcl (Zanaflex), 1 TAB PO Q8H PRN for muscle spasms, (Reported) Miscellaneous Medications Oxycodone Hcl (Oxycodone Hcl), (Reported) Past Medical History Past Medical History: Headache, Seizures, Bronchitis, Hepatitis C, Hernia, Chronic Pain, Deep Vein Thrombosis, *DERMATOLOGY*, MRSA Abscess, Anxiety, Depression Past Surgical History: abdominal surgery, cholecystectomy, , orthopedic surgeries Other Past Surgical History: herniorrhaphy Patient History: Patient reports no known family medical history. Alcohol Use: Occasionally Drug Use: marijuana Lives In: Home Review of Systems All Other Systems at this time: Reviewed and Negative Physical Exam Vital Signs: RN Vital Signs have been reviewed: Yes, Temperature: 98.6, Heart Rate: 86, Respiratory Rate: 16, BP: 170/110, Pulse Oximetry: 98, Weight: 91.820 Oxygen Flow Rate: 0 Physical Exam General: The patient is well developed, well nourished, nontoxic appearing and is in no acute distress. Skin: [place], warm and dry with no rashes. HEENT: Head was normocephalic and atraumatic. Eyes - pupils equal, round, reactive to light and accommodation. Extraocular movements were intact. Conjunctivae were nonicteric. The mouth and oropharynx were clear with moist mucous membranes. Neck: Supple and nontender. There was no jugular venous distention, lymphadenopathy, thyromegaly or masses. Chest: Clear to auscultation bilaterally without wheezes, rales or rhonchi. No accessory muscle use. No dullness to percussion. Heart: Rate regular and rhythmic. S1, S2. No murmurs. Palpation of the chest wall was normal. No rubs or thrills. Rectal: No fissures no masses guaiac negative one internal hemorrhoid was palpated nontender no bleeding Abdomen: Soft, nontender and nondistended. Positive bowel sounds. No guarding or rebound. No hepatosplenomegaly or palpable masses. No peritoneal signs Extremities: No cyanosis, clubbing or edema. The patient moves all extremities. Pulses were equal and symmetric. Neurologic: Motor sensory grossly intact Psychologic: The patient was oriented to person, place and time. The patient demonstrated appropriate judgement and insight. Progress Results/Orders Reviewed/noted all lab results: Yes Results/Orders Orders - MAURISIO FIELDS MD Urinalysis, Cult If Indicated (03/23/25 08:12) Hcg, Ur Ql (03/23/25 08:12) Cbc/Diff (03/23/25 08:12) BMP (03/23/25 08:12) Lipase (03/23/25 08:12) CMP (03/23/25 08:12) Saline Lock (03/23/25 08:19) Ethanol (03/23/25 08:38) MG (03/23/25 08:39) Drug Screen, Urine (03/23/25 08:39) Gastrocult Set Up (03/23/25 08:39) Hemocult Set Up (03/23/25 08:39) Completed Orders - MAURISIO FIELDS MD Ondansetron Inj. (Zofran 4mg/2ml Vial) (03/23/25 08:20) Normal Saline 1000ml (0.9% Sodium Chlori (03/23/25 08:20) Medications Received in ER Medications (Trade) Dose Ordered Sig/Alexia Route PRN Reason Start Time Stop Time Status Last Admin Dose Admin (Zofran 4mg/2ml vial) 4 mg ONCE ONCE IV 03/23/25 08:20 03/23/25 08:21 DC 03/23/25 08:42 4 MG (0.9% sodium chloride (NS) 1000ml IV soln) 1,000 ml ONCE ONCE IVB 03/23/25 08:20 03/23/25 08:21 DC 03/23/25 08:45 1,000 ML Vital Signs 03/23/25 08:08 Temp 98.6 Pulse 86 Resp 16 B/P (MAP) 170/110 Pulse Ox 98 O2 Flow Rate 0 Re-Evaluation Re-Evaluation : Re-Evaluation: Improved Progress Patient was seen and examined. Patient is given reassurance. Patient was complaining of pain and was given pain meds she received 1 mg of Dilaudid. Patient's abdomen appeared soft she has normal bowel sounds patient's rectal exam was negative for any GI bleeding. There was no stool in the vault. Patien t's white count was slightly elevated at 18.1 with a left shift of 83 which has a bit concerning for possible infectious etiology as far as stress reaction however as far as anemia hemoglobin is 14 hematocrit is 42.9. Patient's chemistry showed a borderline potassium of 3.4 but a BUN of 11 which is reassuring as far as GI bleed. Calcium has a bit high at 10.2 may be hemoconcentrated requiring fluids also moans bones and groans with psychiatric overtones could be causing some of her abdominal pain patient did receive a fluid bolus. Lipase was within normal limits. Patient's tox screen is positive for marijuana patient denies cyclic vomiting. Her urinalysis showed squamous epithelial cells that are moderate 4+ bacteria can have a UTI but it appears to be a contaminant also kidney stones was considered with the RBCs this is not a good sample however. Patient was scheduled for a CAT scan was returned because he said she was uncomfortable. She just received pain medications additional pain medications were not given. Patient apparently left the ER since she did not received pain meds. She appeared comfortable vital signs were within normal limits. A prescription was written after the fact. Triage note said that she was out of medications she was given a prescription of Protonix as well as Bentyl. Continuous front desk monitor interpretation shows normal sinus rhythm, 80s, no ectopy, normal, my interpretation. Pulse oximetry monitor interpretation shows normal oxygenation at 98% room air, normal, my interpretation. Medical Decision Making Additional information obtaine: old records Findings Consider GI bleed versus peritonitis versus esophagitis versus is polysubstance use as well as narcotic dependency. Also infectious etiologies were considered since the patient has a elevated white count Differential Dx:Considerations: AAA, Angina/VA, Appendicitis, Bowel obstruction, Cholangitis, Cholelithasis, Constipation, Diverticular disease, Esophageal rupture, Esophagitis, Gastritis/PUD, Gastroenteritis, GI hemorrhage, Hernia, Hepatitis, Inflammatory BD, Ischemic bowel, Ovarian cyst/torsion, Pancreatitis, PID, Urinary obstruction, Urinary tract infection, Urolithiasis, Other Departure Disposition: LEFT AWOL/ELOPED Impression: Primary Impression: Abdominal pain Qualified Codes: R10.13 - Epigastric pain Condition: Stable Referrals: NO PRIMARY CARE PROVIDER (PCP) Prescriptions Dicyclomine Hcl* (Bentyl*) 10 Mg Capsule 1 CAP PO Q8H for irritable bowel symptoms, #14 CAP Prov: MAURISIO FIELDS MD 03/23/25 Pantoprazole Sodium (Protonix) 20 Mg Tablet. 1 TAB PO DAILY for 30 Days, #30 TAB 0 Refills Prov: MAURISIO FIELDS MD 03/23/25 Education Educated: Patient Educated regarding: diagnosis Signature Scribe Signature: n Attestation: The note accurately reflects work and decisions made by me.Maurisio Fields MD 03/23/25 12:46 MAURISIO FIELDS MD Mar 23, 2025 08:46
[2025-03-23 08:55] VITALS: RESP 20
[2025-03-23 08:57] LABS: MEAN PLATELET VOLUME 8.4 FL (7.4-10.4); RED CELL DISTRIBUTION WIDTH 13.8 % (11.5-14.5)
[2025-03-23 09:13] LABS: CREATININE 0.92 MG/DL (0.40-0.90); TOTAL CARBON DIOXIDE 27.7 MMOL/L (24-32); eCRCL 72 ML/MIN; eGFR 65 ML/MIN
[2025-03-23 09:18] LABS: ETHANOL < 10 MG/DL (<10)
[2025-03-23] MEDS ORDERED: iohexol 300mg/ml 100ml inj. ONE (10:57)
[2025-03-23 11:22] LABS: LEUKOCYTE ESTERASE ,URINE TRACE (Neg); NITRITES, URINE POSITIVE (Neg); OCCULT BLOOD,URINE LARGE (Neg)
[2025-03-23 11:23] LABS: URINE HCG NEGATIVE (NEG)
[2025-03-23 11:29] LABS: URINE AMPHETAMINE SCREEN NEGATIVE (Neg); URINE BARBITUATE SCREEN NEGATIVE (Neg); URINE BENZODIAZEPINES SCREEN NEGATIVE (Neg); URINE CANNABINOID SCREEN POSITIVE (Neg); URINE COCAINE SCREEN NEGATIVE (Neg); URINE METHADONE SCREEN NEGATIVE (Neg); URINE OPIATE SCREEN POSITIVE (Neg); URINE PHENCYCLIDINE SCREEN NEGATIVE (Neg)
[2025-03-23 11:34] LABS: UA COLLECTION TYPE CLN CATCH MIDSTREAM
[2025-03-23 11:35] LABS: SQUAMOUS EPITHELIAL CELL,UR MODERATE /LPF (FEW)
[2025-03-23 12:14] LABS: OCCULT BLOOD STOOL NEGATIVE (Neg)
[2025-03-23] MEDS ORDERED: PANT20TA18 PO (12:24)
[2025-03-23] MEDS ORDERED: DICY10CA88 PO (12:25)
== END 2025-03-23 11:40 | disposition left against medical advice (07) ==
LOC: ER 08:04
DX: R10.33 Periumbilical pain (principal); F12.90 Cannabis use, unspecified, uncomplicated; F41.9 Anxiety disorder, unspecified; F32.A Depression, unspecified; Z86.14 Personal history of Methicillin resistant Staphylococcus aureus infection; Z86.19 Personal history of other infectious and parasitic diseases; Z86.718 Personal history of other venous thrombosis and embolism; Z87.11 Personal history of peptic ulcer disease; Z90.49 Acquired absence of other specified parts of digestive tract; Z88.8 Allergy status to other drugs, medicaments and biological substances; Z79.899 Other long term (current) drug therapy; Z72.89 Other problems related to lifestyle; Z98.890 Other specified postprocedural states
CPT/HCPCS: 36415; 80053; 80305; 80320; 81001; 81025; 82272; 83690; 83735; 85025; 87077; 87088; 87186; 96361; 96374; 96375; 99284; J1171; J2405; J2470; J7030; Q9967